=== PATIENT | male | born 1955 | race Caucasian/White ===

== ENCOUNTER 2016-10-06 18:21 | Emergency (ER) | payer MEDICARE, OTHER ==
--- NOTE | 2016-10-06 18:44 | ED ---
Throat Pain/Nasal Congestion - HPI Summary HPI Summary: Patient TIFFANY after choking on a piece of steak at a restaurant. His was at his side performing the Heimlich with no success, EMT arrived and performed the heimlich and successfully dislodged the piece of meat. Immediately, the patient felt better and was able to breath without difficulty. He is on o2 at home at baseline. Hx of parkinsons and episodes of dysphagia. This has happened a few times per his , but usually is successfully dislodged by heimlich at home by . He denies breathing difficulties at this point. Denies odynophagia or dysphagia currently. He is stable on arrival and VS are WNL. Patient currently takes cogentin, ativan, zoloft and prolixin. Patient is very frail. He is currently complaining of left sided rib pain after EMT performed heimlich maneuver for less than 1 minute. - History of Current Complaint Chief Complaint: EDForeignBodyEsophag Time Seen by Provider: 10/06/16 18:34 Hx Obtained From: Patient Onset/Duration: Sudden Onset Severity: Severe - Epiglottits Risk Factors Epiglottis Risk Factors: Negative - Allergies/Home Medications Allergies/Adverse Reactions: Allergies Allergy/AdvReac Type Severity Reaction Status Date / Time No Known Allergies Allergy Verified 12/18/12 11:28 PMH/Surg Hx/FS Hx/Imm Hx Previously Healthy: No - parkinsons Endocrine/Hematology History: Reports: Hx Diabetes - prediabetic Cardiovascular History: Denies: Hx Pacemaker/ICD Sensory History: Denies: Hx Hearing Aid Psychiatric History: Denies: Hx Panic Disorder - Surgical History Surgery Procedure, Year, and Place: 2 hernia operations, gastro surgery - Immunization History Hx Pertussis Vaccination: No Immunizations Up to Date: Unable to Obtain/Confirm Infectious Disease History: No Infectious Disease History: Denies: Traveled Outside the [place] in Last 30 Days - Social History Occupation: Unemployed Lives: With Family Alcohol Use: Rare Hx Substance Use: No Substance Use Type: Reports: None Hx Tobacco Use: No Review of Systems Constitutional: Negative Eyes: Negative ENT: Other - no FB present/ airway clear Cardiovascular: Negative Respiratory: Negative Genitourinary: Negative Positive: no symptoms reported, see HPI Skin: Negative Neurological: Negative All Other Systems Reviewed And Are Negative: Yes Physical Exam Triage Information Reviewed: Yes Vital Signs On Initial Exam: Initial Vitals Temp Pulse Resp BP Pulse Ox 98.4 F 91 18 138/89 96 10/06/16 18:23 10/06/16 18:23 10/06/16 18:23 10/06/16 18:23 10/06/16 18:23 Vital Signs Reviewed: Yes Appearance: Positive: Well-Appearing, Well-Nourished Skin: Positive: Warm, Skin Color Reflects Adequate Perfusion Head/Face: Positive: Normal Head/Face Inspection Eyes: Positive: EOMI, SHARON, Conjunctiva Clear ENT: Positive: Pharynx normal, Other - no tonsillar swelling, airway patent Neck: Positive: Supple, No Lymphadenopathy Respiratory/Lung Sounds: Positive: Clear to Auscultation, Breath Sounds Present Cardiovascular: Positive: Normal, RRR, Pulses are Symmetrical in both Upper and Lower Extremities Musculoskeletal: Positive: Normal, Strength/ROM Intact Neurological: Positive: Speech Normal Psychiatric: Positive: Normal AVPU Assessment: Alert - Maryse Coma Scale Best Eye Response: 4 - Spontaneous Best Motor Response: 6 - Obeys Commands Best Verbal Response: 5 - Oriented Diagnostics - Vital Signs Vital Signs Temp Pulse Resp BP Pulse Ox 10/06/16 18:33 98.4 F 88 20 127/91 98 10/06/16 18:23 98.4 F 91 18 138/89 96 - Laboratory Lab Statement: Any lab studies that have been ordered have been reviewed, and results considered in the medical decision making process. EENT Course/Dx - Course Course Of Treatment: Patient evaluated for FB in pharynx. S/p successful dislodgement of FB (steak) from EMT prior to arrival. patient is stable on arrival and is c/o left sided rib pain. Denies SOB or mid-chest pain. PMHx includes parkinson's and has had episodes of dysphagia in the past which have all been treated at home by his with the wilfredo. Xrays ordered. Oral challenge successful with water and applesauce. Xrays showed no acute findings or rib fracture or other. - Differential Diagnoses Differential Diagnoses: Foreign Body, Other - parkinson's, throat pain; rib pain - Diagnoses Provider Diagnoses: Foreign body ingestion Discharge - Discharge Plan Condition: Stable Disposition: HOME Patient Education Materials: Esophageal Foreign Body (ED) Referrals: Derrick Busch MD [Primary Care Provider] - Additional Instructions: Follow up with PCP If you develop any symptoms such that you feel you are having difficulty swallowing - stop and eat something softer You have rib contusions which will improve in a few days
--- NOTE | 2016-10-06 19:33 | RAD ---
HISTORY: Rib pain status post time of liver COMPARISONS: Chest x-ray dated August 19, 2014 VIEWS: 5, Frontal view of the chest with frontal and oblique views of the left hemithorax FINDINGS: There is no displaced rib fracture or pneumothorax. The visualized lungs are clear. IMPRESSION: NO DISPLACED RIB FRACTURE OR PNEUMOTHORAX.
[2016-10-06 20:49] VITALS: BP 129/71
== END 2016-10-06 20:15 | disposition home or self-care (01) ==
LOC: ED 18:21
DX: R56.9 Unspecified convulsions (principal)
CPT/HCPCS: 96360; 99282

== ENCOUNTER 2018-08-31 14:10 | Inpatient (IN) | payer MEDICARE, OTHER ==
--- NOTE | 2018-08-31 16:43 | ED ---
GI/ HPI - HPI Summary HPI Summary: This pt is a 62 y/o male, accompanied by and [id number], presenting to [facility] for abd pain x5 days, decreased stool, worsening over the past 2 days. Pt states his abd pain is described as pressure and cramping. Additionally has back pain. He states he has been belching and has nausea. Pt reports he is not passing gas. He notes he has been taking shallow breaths. [id number] reports for the past two days pt has been producing liquid, mostly blood and dark. Pt last passed liquid during his bowel movement [employer]. Per [id number], pt leaks a lot and it is usually clear liquid and sometimes brown. Pt denies fever, chest pain, SOB, cough. Patient has tried milk of magnesia, Miralax, prune juice with no effect. Patient has not tried suppositories. Pt states doesn't feel can take deep breath second to pressure from abdomen He has hx of constipation but reports nothing this serious. Pt denies hx of appendectomy. He takes Levodopa and carbidopa for Parkinson's and has already had his dose of levodopa and carbidopa today. Patient also takes Prolixin, but notes only once in a while. Patient is followed by Dr. Horton, neurologist. Pt's medications reviewed this visit. - History of Current Complaint Chief Complaint: EDAbdPain Time Seen by Provider: 08/31/18 16:22 Stated Complaint: CONSTIPATED CRAMPS PER PT Hx Obtained From: Patient, Family/Test Center Administrator - and [id number] Onset/Duration: Started Days Ago, Still Present Timing: Lasting Days Current Severity: Moderate Pain Intensity: 7 Location of Pain: Diffuse Pain Characteristics: Cramping, Pressure Associated Signs and Symptoms: Positive: Back Pain, Nausea, Constipation, Abdominal Pain. Negative: Vomiting, Fever, Cough, Chest Pain, Other: - POSITIVE : belching. NEGATIVE: SOB Aggravating Factor(s): Nothing Alleviating Factor(s): Nothing - Allergy/Home Medications Allergies/Adverse Reactions: Allergies Allergy/AdvReac Type Severity Reaction Status Date / Time No Known Allergies Allergy Verified 08/31/18 14:30 Home Medications: Home Medications Amantadine CAP* [Symmetrel CAP*] 100 mg PO DAILY 08/31/18 [History Confirmed ] Carbidopa/Levodop 25/100 MG(*) [Sinemet 25/100 TAB(*)] 0.5 tab PO TID 08/31/18 [ History Confirmed 09/01/18] QUEtiapine TAB* [Seroquel 25 MG TAB*] 25 mg PO Q2HR PRN 08/31/18 [History Confirmed 09/01/18] Sertraline* [Zoloft*] 150 mg PO DAILY 08/31/18 [History Confirmed 09/01/18] metFORMIN* [Glucophage 500 MG TAB *] 250 mg PO QPM 08/31/18 [History Confirmed 09/01/18] fluPHENAZine HCL TAB* [Prolixin TAB*] 10 mg PO DAILY 09/01/18 [History Confirmed 09/01/18] PMH/Surg Hx/FS Hx/Imm Hx Previously Healthy: Yes Endocrine/Hematology History: Reports: Hx Diabetes - prediabetic Cardiovascular History: Denies: Hx Pacemaker/ICD Sensory History: Denies: Hx Hearing Aid Neurological History: Reports: Other Neuro Impairments/Disorders - Parkinson's, Tardive dyskinesia Psychiatric History: Reports: Hx Schizophrenia Denies: Hx Panic Disorder - Surgical History Surgical History: Yes Surgery Procedure, Year, and Place: 2 hernia operations, gastro surgery (lower esophageal sphincter) Infectious Disease History: No Infectious Disease History: Denies: Traveled Outside the [place] in Last 30 Days - Family History Known Family History: Positive: Diabetes - father, Non-Contributory Family History: Mother with throat CA. - Social History Occupation: Retired Lives: With Family Alcohol Use: Rare Hx Substance Use: No Substance Use Type: Reports: None Hx Tobacco Use: No Smoking Status (MU): Never Smoked Tobacco Review of Systems Negative: Fever Negative: Chest Pain Negative: Cough Gastrointestinal: Other - POSITIVE: constipation, belching Positive: Abdominal Pain, Nausea All Other Systems Reviewed And Are Negative: Yes Physical Exam - Summary Physical Exam Summary: Vital Signs Reviewed: Yes A+Ox3, resting tremor, sotic Eyes: Conjunctiva Clear, SHARON. EOM intact and full ENT: Hearing grossly normal TM x 2 clear, mmoist, uvula midline, no exudate, no erythema Neck: Positive: Supple Respiratory: Positive: No respiratory distress, No accessory muscle use + CTA throughout no w/r Cardiovascular: RRR nl s1, s2 no m/r CBT <2 sec abd distended, tympanic, mild tender decreased BS n oguarding Musculoskeletal Exam: VENTURA x 4 without difficulty Strength Intact, ROM Intact Neurological: Positive: Alert, + sensation throughout, resting tremor Psychological: Positive: Normal Response To Family Skin: Positive: no rash, no ecchymosis Triage Information Reviewed: Yes Vital Signs On Initial Exam: Initial Vitals Temp Pulse Resp BP Pulse Ox 97.8 F 91 20 168/115 94 08/31/18 14:27 08/31/18 14:27 08/31/18 14:27 08/31/18 14:27 08/31/18 14:27 Diagnostics - Vital Signs Vital Signs Temp Pulse Resp BP Pulse Ox 08/31/18 14:27 97.8 F 91 20 168/115 94 - Laboratory Result Diagrams: 08/31/18 17:04 08/31/18 17:04 Lab Statement: Any lab studies that have been ordered have been reviewed, and results considered in the medical decision making process. - Radiology Chest XR Radiology Interpretation Completed By: Radiologist Summary of Radiographic Findings: IMPRESSION: Gas distension of the bowel with associated elevation of the hemidiaphragms and mild bibasilar atelectasis. Dr. Fuller has reviewed this report. Abd XR Radiology Interpretation Completed By: Radiologist Summary of Radiographic Findings: IMPRESSION: #. Severely distended colon without visualized rectal distension with stool. Consider atypical sigmoid volvulus or colonic pseudoobstruction. Correlate with clinical assessment and consider CT for further evaluation. #. Negative for free air. Dr. Fuller has reviewed this report. Re-Evaluation - Re-Evaluation First Eval Re-Evaluation Time: 17:57 Comment: CT is still pending. pt drank contrast. concern for volvulus on my read- pending official xr. will give morphine - if doesn't improve BP will give labetolol Second Eval Re-Evaluation Time: 18:48 Comment: Morphine helped with pt's back pain. Pt reports back pain has resolved. Pt and family were updated on XR results and plan. Will give pt Labetalol to help with BP. pending CT. will contact GI back after CT -aware of sign out GIGU Course/Dx - Course Course Of Treatment: pt wirh progressive abd bloating, discomfort and decreased stool x 5 days h.p parkinsons. pt with elevated BP - likely related to condition. pt non toxic appearing - abd distended and tympnic - not consistent with constipation. will check FAS, CT. lab, urine. IVF. close reassess. declined analgesia - Diagnoses Provider Diagnoses: Volvulus, HTN (hypertension) - Physician Notifications Discussed Care Of Patient With: Deacon Thompson Time Discussed With Above Provider: 18:16 Instructed by Provider To: Other - Discussed with Dr. Thompson, surgeon, who asked to get a formal reading. If volvulus then contact GI. [18:46] Spoke with Dr. Cobb, GI, who asked for phone call when CT results. Discharge - Sign-Out/Discharge Documenting (check all that apply): Sign-Out Patient Signing out patient TO: Melody Milton - CT abdomen/pelvis Patient Received Moderate/Deep Sedation with Procedure: No - Discharge Plan Condition: Fair Disposition: ADMITTED TO [facility] - Billing Disposition and Condition Condition: FAIR Disposition: Admitted to [facility] - Attestation Statements Document Initiated by Scribe: Yes Documenting Scribe: Stephanie Gonzalez Provider For Whom Scribe is Documenting (Include Credential): Yola Fuller MD Scribe Attestation: IStephanie, scribed for Yola Fuller MD on 09/01/18 at 0451. Scribe Documentation Reviewed: Yes Provider Attestation: The documentation as recorded by the Stephanie shaw accurately reflects the service I personally performed and the decisions made by me, Yola Fuller MD Status of Scribe Document: Viewed
[2018-08-31] MEDS ORDERED: Ondansetron INJ* 2 MG/ML VIAL IV ONE (16:56)
[2018-08-31 17:13] LABS: ABS Lymphocytes 0.4 10^3/ul (1.0-4.8); ABS Monocytes 0.3 10^3/ul (0-0.8); ABS Neutrophils 4.9 10^3/ul (1.5-7.7); Hematocrit 45 % (42-52); Hemoglobin 15.1 g/dL (14.0-18.0); Lymphocyte % 6.6 %; Mean Corpuscular HGB Conc 34 g/dL (31-36); Mean Corpuscular Hemoglobin 32 pg (27-31); Mean Corpuscular Volume 94 fL (80-94); Mean Platelet Volume 6.6 fL (7.4-10.4); Platelet Count 211 10^3/uL (150-450); Red Blood Count 4.74 10^6 /uL (4.18-5.48); Red Cell Distribution Width 14 % (10-15); White Blood Count 5.6 10^3/uL (3.5-10.8)
[2018-08-31 17:30] LABS: Albumin 4.6 g/dL (3.2-5.2); Albumin/Globulin Ratio 1.8 (1-3); BUN/Creatinine Ratio 35.6 (8-20); Calcium 9.6 mg/dL (8.6-10.3); EGFR African American 107.6 (>60); EGFR Non-African American 88.9 (>60); Globulin 2.5 g/dL (2-4); Magnesium 2.6 mg/dL (1.9-2.7); Potassium 3.8 mmol/L (3.5-5.0); Total Bilirubin 1.3 mg/dL (0.2-1.0); Total Protein 7.1 g/dL (6.4-8.9)
[2018-08-31] MEDS ORDERED: Morphine 4 MG/ML VIAL (1 ml) 4 MG/ML VIAL IV ONE ×2 (18:06→19:49)
[2018-08-31] MEDS ORDERED: NS 0.9% 1000 ML** 1,000 ML IV SCH ×2 (18:15)
[2018-08-31] MEDS ORDERED: Iodixanol* (CONTRAST) 320 MG/ML 100 ML SDV IV ONE (18:32)
[2018-08-31] MEDS ORDERED: Labetalol IV* 5 MG/ML 20 ML VIAL IV PUSH ONE ×2 (18:54→20:32)
--- NOTE | 2018-08-31 19:07 | ED ---
Progress - Progress Note Progress Note: Patient is signed out to [place] [address]/31/[address] Abd/Pel and GI consult. CT ABD/PEL IMPRESSION: 1. Findings suspicious for sigmoid volvulus with severe gaseous distention of the colon and scattered air fluid levels. No pneumatosis, portal venous air, or evidence of perforation. 2. Elevated bilateral hemidiaphragms secondary to distended bowel. Probable bilateral lower lobe atelectasis, but superimposed air space disease in the right lower lobe is difficult to exclude. 3. Surgical change in left upper quadrant. 4. Chronic left pars interarticularis defect. No significant subluxation. 5. Other non-emergent findings as above. THIS REPORT WAS REVIEWED BY DR. LUNA. Elisabeth Malia Cobb attempted to suction air. She recommends NPO, repeat x-ray and admission. Dr. Niño accepts patient for admission. - EKG/XRAY/CT CT: see above Re-Evaluation - Re-Evaluation First Eval Re-Evaluation Time: 17:57 Comment: CT is still pending. Second Eval Re-Evaluation Time: 18:48 Comment: Morphine helped with pt's back pain. Pt reports back pain has resolved. Pt and family were updated on XR results and plan. Will give pt Labetalol to help with BP. Course/Dx - Course Course Of Treatment: 2035 - Patient's case discussed with Dr. Cobb, Dr. Cobb to come to ED to evaluate. Patient is signed out to Dr. [place] [address]008/31/[address] Abd/Pel and GI consult. CT ABD/PEL IMPRESSION: 1. Findings suspicious for sigmoid volvulus with severe gaseous distention of. the colon and scattered air fluid levels. No pneumatosis , portal venous air, or. evidence of perforation. 2. Elevated bilateral hemidiaphragms secondary to distended bowel. Probable. bilateral lower lobe atelectasis, but superimposed air space disease in the. right lower lobe is difficult to exclude. 3. Surgical change in left upper quadrant. 4. Chronic left pars interarticularis defect. No significant subluxation. 5. Other non- emergent findings as above. Elisabeth Malia Cobb attempted to suction air. She recommends repeat NPO, x-ray and admission. Dr. Niño accepts patient for admission. - Diagnoses Provider Diagnoses: Volvulus, HTN (hypertension) - Provider Notifications Discussed Care Of Patient With: Destinee Cobb Time Discussed With Above Provider: 20:36 Instructed by Provider To: Other - 2029 - vrad communicates results of CT ABD/ PEL. 2035 - Patient's case discussed with Dr. Cobb, Dr. Cobb to come to ED to evaluate. 2226 - Dr. Cobb in ED to evaluate. 2355 - Job Ponce attempted to suction air. She recommends repeat NPO, x-ray and admission. Dr. Chuy Niño accepts patient for admission. Discharge - Sign-Out/Discharge Documenting (check all that apply): Patient Departure - admit Patient Received Moderate/Deep Sedation with Procedure: No - Discharge Plan Condition: Fair Disposition: ADMITTED TO [facility] - Billing Disposition and Condition Condition: FAIR Disposition: Admitted to [facility] - Attestation Statements Document Initiated by Leathaibe: Yes Documenting Scribe: SISSY SALES Provider For Whom Shailae is Documenting (Include Credential): YIN LUNA MD Scribe Attestation: ISISSY, scribed for YIN LUNA MD on 09/01/18 at 2013. Scribe Documentation Reviewed: Yes Provider Attestation: The documentation as recorded by the SISSY shaw accurately reflects the service I personally performed and the decisions made by me, YIN LUNA MD Status of Scribe Document: Viewed
[2018-08-31] MEDS ORDERED: fentaNYL* 50 MCG/ML 2 ML VIAL (100 MCG VIAL) IV SLOW PU ONE (20:23)
[2018-08-31 21:46] LABS: Urine Appearance Clear; Urine Bilirubin Negative (Negative); Urine Blood Negative (Negative); Urine Color Amber; Urine Glucose Negative (Negative); Urine Ketones Negative (Negative); Urine Nitrite Negative (Negative); Urine Protein Negative (Negative); Urine Specific Gravity > 1.060 (1.010-1.030); Urine Urobilinogen Negative (Negative)
[2018-08-31] MEDS ORDERED: Midazolam* 1 MG/ML 10 ML VIAL (10 MG) ONE (22:55)
[2018-09-01] MEDS ORDERED: Glycerin ADULT SUPP PR ONE (00:23)
--- NOTE | 2018-09-01 00:58 | PRO ---
PROCEDURE REPORT: DATE OF PROCEDURE: 08/31/18 PROCEDURE: Flex sigmoidoscopy. REQUESTING PROVIDER: ER. INDICATION: 62-year-old gentleman with constipation and Parkinson's disease, who is admitted with acute abdominal distention and obstipation. X-ray and CT shows severely dilated colon with a collapsed rectum. Findings suggestive of a sigmoid volvulus. MEDICATIONS GIVEN: 1. Versed. 2. Fentanyl. DESCRIPTION OF PROCEDURE: Full disclosure of risks was reviewed with the patient as detailed on the consent form. The patient was placed in a left lateral decubitus position and monitored with continuous pulse oximetry, capnography, interval blood pressure monitoring, and direct observation. After anorectal examination was performed, the pediatric colonoscope was inserted into the rectum and slowly advanced forward. The scope was advanced to 45 cm. Colon was unprepped. Suction was performed as the scope was withdrawn. Findings and interventions are described below. FINDINGS: Anorectal exam was unremarkable. Scope was inserted into the rectum. Very minimal CO2 insufflation was used as the scope was advanced forward. The rectum was relatively decompressed. Scope was slowly advanced using water insufflation technique to approximately 30 cm at which point the volvulus was appreciated. Volvulus was approximately 5-10 cm in length. The scope was able to advance through the volvulus to the dilated colon proximally. There was a large amount of liquid and semi-solid stool in this area. Scope was able to be advanced further to likely the descending colon, which was also quite dilated. No evidence of colonic ischemia. Suctioning performed to decompress this area. Suction was performed as the scope was then slowly withdrawn back to the rectum. The scope was advanced through the volvulus several additional times in order to suction as much air as possible in the proximal segment of colon. The scope was then withdrawn from the patient. Attempts were made to place a rectal tube (under endoscopic visualization) proximal to volvulus. Unfortunately, the tube fell out soon after placement. The patient's abdomen felt noticeably less distended and firm post-procedure, although there was moderate persistent distention. No large expulsion of gas or stool noted after the procedure. The patient tolerated the procedure well and was recovered in the ER. IMPRESSION: 1. Flexible sigmoidoscopy to descending colon for decompression of sigmoid volvulus. Air and liquid stool were suctioned and minimal CO2 insufflation was used. No evidence of colonic ischemia. Abdomen felt less distended post- procedure. RECOMMENDATIONS: 1. NPO. 2. Recommend bisacodyl or glycerine suppository to see if this helps stimulate any colonic motility. If the volvulus reduction was unsuccessful (or recurs in the acute setting), then I would recommend surgical consultation. 3. Please obtain abdominal x-ray post-procedure. Thank you very much for this consult. GI will continue to follow. I discussed the case in detail before and after the procedure with the patient's . [id number]/CPS #: [id number] OTIS
--- NOTE | 2018-09-01 00:59 | HP ---
History of Present Illness - History of Present Illness Reason for Visit: Constipation. History of Present Illness: This pt is a 62 y/o male with past medical history long standing Schizophrenia, Tardive dyskinesia, Parkinsons, pre-diabetes, accompanied by and sister-in- law, for constipation and abd pain x5 days, worsening over the past 2 days. During my evaluation the patient was very drowsy post sigmoidoscopy performed by Dr. Cobb, so history was obtained by reviewing the ER chart and speaking to family at beside. Sigmoidoscopy was partial success at reversing his volvulus along with total of over 1L of liquid stool suctioned off. ER chart doumented "Pt states his abd pain is described as pressure and cramping. Additionally has back pain. He states he has been belching and has nausea. Pt reports he is not passing gas. He notes he has been taking shallow breaths. [id number] reports for the past two days pt has been producing liquid, mostly blood and dark. Pt last passed liquid during his bowel movement [employer]. Per [id number], pt leaks a lot and it is usually clear liquid and sometimes brown. Pt denies fever, chest pain, SOB, cough. Patient has tried milk of magnesia, Miralax, prune juice with no effect. Patient has not tried suppositories. He has hx of constipation but reports nothing this serious." Past Medical History Long standing Schizophrenia Tardive dyskinesia Parkinson's likely complication of schiziophrenia Diabetes - prediabetic Past Surgical History Groin hernia operation in his high school. Lower esophageal sphincter surgery 20 years ago. Family History Father Mother with throat CA. Social History Alcohol Use: Rare Hx Substance Use: No Substance Use Type: Reports: None Hx Tobacco Use: No Smoking Status (MU): Never Smoked Tobacco Allergies Allergy/AdvReac Type Severity Reaction Status Date / Time No Known Allergies Allergy Verified 08/31/18 14:30 Home Medications Medication Instructions Recorded Confirmed Type Benztropine TAB* [Cogentin TAB*] 1 mg PO TID 12/18/12 08/31/18 History LORazepam TAB(*) [Ativan TAB(*)] 1 mg PO QID PRN 12/18/12 08/31/18 History Amantadine CAP* [Symmetrel CAP*] 100 mg PO BID 08/31/18 08/31/18 History Carbidopa/Levodop 25/100 MG(*) 0.5 tab PO 0600,1000,1400,1800 08/31/18 08/31/18 History [Sinemet 25/100 TAB(*)] QUEtiapine TAB* [Seroquel 25 MG 75 mg PO BEDTIME 08/31/18 08/31/18 History TAB*] Sertraline* [Zoloft*] 200 mg PO DAILY 08/31/18 08/31/18 History metFORMIN* [Glucophage 500 MG TAB 250 mg PO DAILY 08/31/18 08/31/18 History *] fluPHENAZine HCL TAB* [Prolixin 10 mg PO DAILY 09/01/18 09/01/18 History TAB*] Review of Systems - Measurements Intake and Output: Intake and Output Last 24 Hours 08/29/18 08/30/18 08/31/18 09/01/18 06:59 06:59 06:59 06:59 Weight 138 lb - Review of Systems General Comments: Unable to obtain from patient due to his sedated state. Objective Active Medications: Glycerin (Glycerin Adult Supp*) 1 supp [facility] ON[facility] Stop: 09/01/18 00:24 Sodium Chloride (Ns 0.9% 1000 Ml) 1,000 mls @ 150 mls/hr IV PER RATE RAYSHAWN Last Admin: 08/31/18 18:14 Dose: 150 mls/hr Vital Signs - 8 hr 08/31/18 08/31/18 08/31/18 17:03 17:05 17:33 Pulse Rate 78 71 Respiratory 25 Rate Blood Pressure 180/110 180/106 (mmHg) O2 Sat by Pulse 98 98 Oximetry 08/31/18 08/31/18 08/31/18 18:00 18:01 18:02 Pulse Rate 76 75 72 Respiratory 24 27 24 Rate Blood Pressure 197/115 183/109 (mmHg) O2 Sat by Pulse 97 97 97 Oximetry 08/31/18 08/31/18 08/31/18 18:03 18:13 18:15 Pulse Rate 71 71 Respiratory 24 18 23 Rate Blood Pressure 178/113 163/105 (mmHg) O2 Sat by Pulse 98 97 Oximetry 08/31/18 08/31/18 08/31/18 18:16 18:26 18:33 Pulse Rate 73 74 Respiratory 25 19 Rate Blood Pressure 178/102 162/108 168/106 (mmHg) O2 Sat by Pulse 97 97 Oximetry 08/31/18 08/31/18 08/31/18 18:57 19:00 19:03 Pulse Rate 75 73 74 Respiratory 19 19 23 Rate Blood Pressure 162/104 168/104 (mmHg) O2 Sat by Pulse 97 97 96 Oximetry 08/31/18 08/31/18 08/31/18 19:07 19:35 20:00 Pulse Rate 76 74 Respiratory 26 24 Rate Blood Pressure 140/96 143/88 (mmHg) O2 Sat by Pulse 93 93 Oximetry 08/31/18 08/31/18 08/31/18 20:04 20:09 20:33 Pulse Rate 75 75 Respiratory 24 14 24 Rate Blood Pressure 168/106 172/104 (mmHg) O2 Sat by Pulse 95 95 Oximetry 08/31/18 08/31/18 08/31/18 20:48 20:54 20:59 Pulse Rate 76 73 215 Respiratory 21 23 25 Rate Blood Pressure 147/94 137/97 153/93 (mmHg) O2 Sat by Pulse 91 89 90 Oximetry 08/31/18 08/31/18 08/31/18 21:01 21:03 21:07 Pulse Rate 77 75 73 Respiratory 26 22 19 Rate Blood Pressure 155/104 181/111 (mmHg) O2 Sat by Pulse 93 92 90 Oximetry 08/31/18 08/31/18 08/31/18 21:13 21:24 21:34 Pulse Rate 72 102 Respiratory 22 24 23 Rate Blood Pressure 157/101 162/99 129/92 (mmHg) O2 Sat by Pulse 89 90 Oximetry 08/31/18 08/31/18 08/31/18 21:38 21:43 21:48 Pulse Rate 75 75 75 Respiratory 27 21 20 Rate Blood Pressure 175/109 161/110 166/103 (mmHg) O2 Sat by Pulse 90 91 90 Oximetry 08/31/18 08/31/18 21:53 22:01 Pulse Rate 74 73 Respiratory 20 18 Rate Blood Pressure 167/107 (mmHg) O2 Sat by Pulse 90 90 Oximetry Oxygen Devices in Use Now: None Appearance: Sedated due to versed in the colonoscopy Eyes: - - Family didn't want any testing of eyes as he didn't sleep for few days so didn't want to wake him up. Neck: NL Appearance and Movements; NL JVP Respiratory: Clear to Auscultation Cardiovascular: NL Sounds; No Murmurs; No JVD, RRR Abdominal: - - Distended and tympanic to percussion, hypoactive bowel sounds, no real tenderness during my evaluation. Extremities: No Edema Neurological: - - Sedated due to procedure. Result Diagrams: 08/31/18 17:04 08/31/18 17:04 Diagnostic Imaging: Chest XR IMPRESSION: Gas distension of the bowel with associated elevation of the hemidiaphragms and mild bibasilar atelectasis. Abd XR IMPRESSION: Severely distended colon without visualized rectal distension with stool. Consider atypical sigmoid volvulus or colonic pseudoobstruction. Correlate with clinical assessment and consider CT for further evaluation. Negative for free air. CT ABD/PEL IMPRESSION: 1. Findings suspicious for sigmoid volvulus with severe gaseous distention of the colon and scattered air fluid levels. No pneumatosis, portal venous air, or evidence of perforation. 2. Elevated bilateral hemidiaphragms secondary to distended bowel. Probable bilateral lower lobe atelectasis, but superimposed air space disease in the right lower lobe is difficult to exclude. 3. Surgical change in left upper quadrant. 4. Chronic left pars interarticularis defect. No significant subluxation. 5. Other non-emergent findings as above. Assess/Plan/Problems-Billing Assessment: 62yoM w/schizophrenia, Parkinson's, here due to constipation from sigmoid volvulus. - Patient Problems (1) Sigmoid volvulus Current Visit: Yes Status: Acute Comment: S/P Sigmoidoscopy. GI and Surgeon made awake by ER. Spoke with GI suggested Glycerin and Bisacodyl. NPO for now. IVF. Repeat Abdominal X-ray in AM. (2) Schizophrenia Current Visit: Yes Status: Acute Code(s): F20.9 - SCHIZOPHRENIA, UNSPECIFIED SNOMED Code(s): 22862683 Comment: Restart home meds. (3) Parkinson disease Current Visit: Yes Status: Acute Code(s): G20 - PARKINSON'S DISEASE SNOMED Code(s): 73863327 Comment: Restart home meds. (4) Pre-diabetes Current Visit: Yes Status: Acute Code(s): R73.03 - PREDIABETES SNOMED Code (s): 468578695 Comment: Hold metformin for now. (5) DVT prophylaxis Comment: SCD
--- NOTE | 2018-09-01 01:06 | CONS ---
GASTROENTEROLOGY CONSULT REPORT: DATE OF CONSULT: 08/31/18 REQUESTING PROVIDER: ED REASON FOR CONSULT: Sigmoid volvulus. HISTORY OF PRESENT ILLNESS: Mr. Greene is a 62-year-old gentleman with a history of diabetes, Parkinson's, and schizophrenia, who is admitted with acute abdominal distention and obstipation. Mr. Greene and his provide history. Mr. Greene states that over the past 2 weeks he has had increasing abdominal distention. He says that his last bowel movement was 2 weeks ago, although his notes that he had a large bowel movement several days ago. After the large bowel movement, he stopped passing flatus and stool. Abdomen became quite distended and firm. The patient has a history of constipation and has a bowel movement anywhere from every few days to a week. The stool is often hard with some straining. In the ED, the patient underwent abdominal x-ray, which showed severely dilated colon concerning for atypical sigmoid volvulus versus [place]'s syndrome. Followup CT abdomen and pelvis demonstrated distended colon with sigmoid volvulus in the lower pelvis. PAST MEDICAL HISTORY: 1. Diabetes. 2. Schizophrenia. 3. Parkinson's disease. PAST SURGICAL HISTORY: Two hernia operations and a hiatal hernia surgery. MEDICATIONS: 1. Amantadine. 2. Carbidopa/levodopa. 3. Quetiapine. 4. Sertraline. 5. Metformin. FAMILY HISTORY: No known relevant GI history. SOCIAL HISTORY: Lives with his . Rare alcohol use. Nonsmoker. No drug use. REVIEW OF SYSTEMS: Parkinson's. Some shortness of breath. Abdominal discomfort. No bowel movement or gas. Review of systems otherwise negative. PHYSICAL EXAMINATION: Vital Signs: Afebrile, heart rate 91, blood pressure 168/115, 94% on room air. General: Elderly gentleman, significant resting tremor. Mildly engaged with history, although otherwise resting. Appears mildly uncomfortable. and family friend at bedside with multiple questions. HEENT: Mildly dry mucous membranes. Cardiovascular: Regular rate and rhythm. Pulmonary: Mildly decreased breath sounds. Otherwise clear lungs. Abdomen: Firm and distended abdomen. Tympany. No guarding or rebound tenderness. Extremities: No edema. DIAGNOSTIC STUDIES/LAB DATA: Labs reviewed, white count normal, hemoglobin normal. Sodium 128, BUN 31. Imaging: Abdominal x-ray with severely distended colon without visualized rectal distention. Consider sigmoid volvulus or colonic pseudoobstruction. CT abdomen and pelvis findings suspicious for sigmoid volvulus with severe gaseous distention of the colon and scattered air fluid levels. Elevated bilateral hemidiaphragm secondary to distended bowel also noted. IMPRESSION AND RECOMMENDATION: Mr. Greene is a 62-year-old gentleman with a history of schizophrenia and diabetes and Parkinson's, who is admitted with acute abdominal distention and obstipation secondary to sigmoid volvulus. The patient's abdomen is quite distended and imaging is suggestive of severely distended colon with probable sigmoid volvulus. Discussed with the patient and the patient's that it is reasonable to proceed with a flexible sigmoidoscopy to attempt to detorse the sigmoid volvulus. This is generally successful, although volvulus can recur frequently. In that case, surgery with resection of the volvulus is indicated. - N.p.o. - Will plan for flex sig unprepped at bedside for urgent decompression. - Additional recommendations to follow procedure. Thank you very much for this consult. [id number]/[facility] #: [id number] OTIS
[2018-09-01] MEDS ORDERED: NS 0.9% 1000 ML** 1,000 ML IV SCH (01:30)
[2018-09-01] MEDS ORDERED: Benztropine TAB* 1 MG PO PRN (01:44)
[2018-09-01 06:17] LABS: ABS Lymphocytes 0.9 10^3/ul (1.0-4.8); ABS Monocytes 0.6 10^3/ul (0-0.8); ABS Neutrophils 4.5 10^3/ul (1.5-7.7); Eosinophil % 0.2 %; Hematocrit 39 % (42-52); Hemoglobin 13.5 g/dL (14.0-18.0); Lymphocyte % 15.1 %; Mean Corpuscular HGB Conc 35 g/dL (31-36); Mean Corpuscular Hemoglobin 33 pg (27-31); Mean Corpuscular Volume 94 fL (80-94); Platelet Count 188 10^3/uL (150-450); Red Blood Count 4.11 10^6 /uL (4.18-5.48); Red Cell Distribution Width 14 % (10-15); White Blood Count 6.1 10^3/uL (3.5-10.8)
[2018-09-01 06:35] LABS: BUN/Creatinine Ratio 33.8 (8-20); Calcium 8.3 mg/dL (8.6-10.3); EGFR African American 118.5 (>60); Potassium 4.2 mmol/L (3.5-5.0)
[2018-09-01] MEDS ORDERED: Lactated Ringers 1000 ML Bag* 1,000 ML IV ONE (10:23)
[2018-09-01 10:33] LABS: Albumin 3.5 g/dL (3.2-5.2); Albumin/Globulin Ratio 1.8 (1-3); Indirect Bilirubin 0.8 mg/dL (0.3-1.0); Total Protein 5.5 g/dL (6.4-8.9)
[2018-09-01 10:46] LABS: Magnesium 2.3 mg/dL (1.9-2.7); Phosphorus 2.8 mg/dL (2.5-5.0)
[2018-09-01] MEDS: Sertraline* 100 MG TAB PO SCH (12:39)
[2018-09-01] MEDS: Amantadine CAP* 100 MG PO SCH (12:39)
[2018-09-01] MEDS: fluPHENAZine HCL TAB* 5 MG PO SCH (12:40)
[2018-09-01] MEDS: Bisacodyl SUPP* 10 MG SUPP PR SCH (12:45)
[2018-09-01] MEDS ORDERED: PEG 3000 GI LAVAGE* 1 GALLON PO ONE (12:49)
[2018-09-01] MEDS: Carbidopa/Levodop 25/100 MG TAB(*) PO SCH ×3 (12:51→21:05)
--- NOTE | 2018-09-01 12:51 | PN ---
Progress Note - Progress Note Date of Service: 09/01/18 Note: GASTROENTEROLOGY FOLLOW-UP NOTE IE/S: - Sigmoid volvulus. - Flex seg w/ decompression performed in ED last night. No ischemia. Attempt was made to place rectal tube proximal to volvulus, but the tube quickly fell out. Abdomen felt mild/mod less distended post-procedure. - Passing flatus w/ stool overnight and this morning. Several bowel movements. Last BM was large (mid-morning). - Complains of feeling abdomen is mildly sore with palpation. Otherwise, abdomen feels less distended. O: VS: Tm99.2, BP and HR ok GEN: Tired-appearing gentleman. Parkinson's resting tremor. CV: RRR PULM: Breathing comfortably ABD: Hypoactive BS. Softly distended. Mild tenderness. EXT: No edema Reviewed abdominal x-ray this AM personally and w/ radiology Dr Inman. Descending colon appears less dilated. Right colon measuring <9 cm at max diameter. A/P: 62yM w/ diabetes, parkinson's disease, and schizophrenia, who is admitted w/ sigmoid volvulus. Underwent flex sig w/ decompression overnight. De-torsion appears to have been successful as patient is no longer obstructed. Passing stool w/ flatus. Persistent distention noted on abdominal x-ray, although this was before most recent large bowel movement. Abdomen feels less distended. - Can trial clears as patient is no longer acutely obstructed clinically - Recommend ordering Golytely and encouraging patient to drink some of this laxative to attempt to clear out stool further in case volvulus recurs. - Repeat abdominal x-ray this morning or with clinical change. Low threshold to repeat CT if concern for recurrent volvulus. - Discussed case with Dr Baum and Dr Vail. There is a high risk (~60%) of recurrence of sigmoid volvulus after one episode managed non-operatively (with flex sig decompression). Endoscopy can allow for urgent decompression/reduction of volvulus. However, surgery is definitive management to prevent recurrent volvulus. Will monitor patient clinically. Strongly recommend consideration of surgical intervention if recurrent volvulus develops. Destinee Cobb MD Gastroenterology
--- NOTE | 2018-09-01 13:51 | CONS ---
CONSULTATION REPORT: DATE OF CONSULT: 09/01/18 REQUESTING PHYSICIAN: Dr. Lizet Vail. REASON FOR CONSULT: Sigmoid volvulus. HISTORY OF PRESENT ILLNESS: Mr. Greene is a 62-year-old gentleman with a longstanding history of schizophrenia, tardive dyskinesia, and Parkinson's disease, who presented to the emergency room yesterday with complaints of constipation and abdominal pain for 5 days that worsened over the past several days. I had initially evaluated him in the emergency room yesterday and I saw him again this morning. Yesterday, the patient was having complaints of significant abdominal distention and discomfort. He was found on imaging, which included an abdominal x-ray and abdominal CT scan, to likely have sigmoid volvulus. He underwent a flexible sigmoidoscopy with Dr. Cobb from and per her procedure note, she was not certain if there had been completely successful detorsion. hHowever, there was gas and stool that was released after her procedure. She was also unable to place a rectal tube. This morning , the patient says that he feels much better. He has had 4 bowel movements since the flexible sigmoidoscopy. He is still distended. PAST MEDICAL HISTORY: Schizophrenia, tardive dyskinesia, Parkinson's. PAST SURGICAL HISTORY: 1. Inguinal hernia repair. 2. Lower esophageal sphincter surgery approximately 20 years ago. MEDICATIONS: 1. Benztropine. 2. Lorazepam. 3. Amantadine. 4. Carbidopa/levodopa. 5. Quetiapine. 6. Sertraline. 7. Metformin. 8. Fluphenazine. ALLERGIES: No known drug allergies. FAMILY HISTORY: Mother with throat cancer. SOCIAL HISTORY: The patient lives with his . He is a nonsmoker. REVIEW OF SYSTEMS: Negative except for as noted in HPI. PHYSICAL EXAM: Vital Signs: Temperature is 99.2, heart rate is 65, respiratory rate is 16, O2 sat is 95% O2 on room air, blood pressure is 138/84. General: He is an elderly man, lying comfortably in bed, in no apparent distress. HEENT is normocephalic, atraumatic. Cardiovascular is regular rate and rhythm. Respiratory is clear to auscultation bilaterally. Abdomen is distended, but softer than yesterday's examination. There is no significant tenderness in the 4 quadrants with light palpation. Extremities showed no edema. DIAGNOSTIC STUDIES/LAB DATA: White blood cell count is 6.1, hemoglobin 13.5, hematocrit 39, platelet count 188. Sodium is 128, potassium is 4.2, chloride is 96, CO2 is 28, BUN is 27, creatinine is 0.8, glucose is 98, calcium is 8.3. Total bilirubin is 1, direct bilirubin is 0.2, AST is 40, ALT is 51, alkaline phosphatase is 62. Imaging: CT abdomen and pelvis from 08/31/18 shows findings suspicious for sigmoid volvulus with severe gaseous distention of the colon and scattered air- fluid levels. No pneumatosis, portal venous air, or evidence of perforation. Elevated bilateral hemidiaphragm secondary to distended bowel, probable bilateral lower lobe atelectasis, surgical change in the left upper quadrant, chronic left pars interarticularis defect. No significant subluxation. Abdominal x-ray from 09/01/18 shows question of slight improvement in colonic distention when compared to 08/31/18. ASSESSMENT AND PLAN: Mr. Greene is a 62-year-old gentleman with a history of schizophrenia and Parkinson's disease, who presented to the emergency room with constipation, abdominal distention and findings of sigmoid volvulus. He underwent flexible sigmoidoscopy with Dr. Cobb and it appears that while there may have been some benefit from the sigmoidoscopy, he may have not completely untorsed. Currently, however, he is clinically less distended, more comfortable and had been passing flatus and bowel movements. I have discussed the case with Dr. Vail as well as Dr. Cobb. She plans to initiate him on a clear liquid diet and give him laxatives. We have discussed the benefit of repeating a flexible sigmoidoscopy if the patient does not continue to clinically improve. The surgical option for acute sigmoid volvulus would be a more urgent exploratory laparotomy with sigmoidectomy and end colostomy; however, at this time he has no evidence of ischemia and surgery is not indicated at this moment. If we continues to decompress, then he could potentially undergo an elective sigmoidectomy that could be done laparoscopically with primary anastomosis, which would certainly be preferable. I have discussed this with the patient and the primary team. Surgery will continue to follow. [id number]/[facility] #: [id number] [facility]
[2018-09-01] MEDS ORDERED: IVPREMIX IV ONE (21:00)
[2018-09-01] MEDS ORDERED: KCL 10 MEQ/50 ML IV ONE (21:00)
[2018-09-01] MEDS ORDERED: KCL 20 MEQ/100 ML IVPREMIX* 20 MEQ/100 ML BAG IV ONE (21:00)
[2018-09-02 05:42] LABS: ABS Eosinophils 0.1 10^3/ul (0-0.6); ABS Lymphocytes 1.4 10^3/ul (1.0-4.8); ABS Monocytes 0.4 10^3/ul (0-0.8); Eosinophil % 2.8 %; Hematocrit 38 % (42-52); Hemoglobin 13.4 g/dL (14.0-18.0); Lymphocyte % 35.3 %; Mean Corpuscular HGB Conc 35 g/dL (31-36); Mean Corpuscular Hemoglobin 33 pg (27-31); Mean Corpuscular Volume 94 fL (80-94); Mean Platelet Volume 6.9 fL (7.4-10.4); Nucleated Red Blood Cells % 0.1; Platelet Count 173 10^3/uL (150-450); Red Blood Count 4.09 10^6 /uL (4.18-5.48); Red Cell Distribution Width 14 % (10-15); White Blood Count 3.9 10^3/uL (3.5-10.8)
[2018-09-02 06:02] LABS: Albumin 3.4 g/dL (3.2-5.2); Albumin/Globulin Ratio 1.6 (1-3); BUN/Creatinine Ratio 20.8 (8-20); Calcium 8.3 mg/dL (8.6-10.3); EGFR African American 123.9 (>60); EGFR Non-African American 102.4 (>60); Globulin 2.1 g/dL (2-4); Indirect Bilirubin 0.9 mg/dL (0.3-1.0); Potassium 3.7 mmol/L (3.5-5.0); Total Bilirubin 1.1 mg/dL (0.2-1.0); Total Protein 5.5 g/dL (6.4-8.9)
[2018-09-02] MEDS: Sertraline* 100 MG TAB PO SCH (09:13)
[2018-09-02] MEDS: fluPHENAZine HCL TAB* 5 MG PO SCH (09:13)
[2018-09-02] MEDS: Amantadine CAP* 100 MG PO SCH (09:13)
[2018-09-02] MEDS: Carbidopa/Levodop 25/100 MG TAB(*) PO SCH ×3 (09:14→22:08)
--- NOTE | 2018-09-02 09:33 | PN ---
Subjective Date of Service: 09/02/18 Objective Active Medications: Amantadine HCl (Symmetrel Cap*) 100 mg PO DAILY RAYSHAWN Benztropine Mesylate (Cogentin Tab*) 1 mg PO QID PRN Bisacodyl (Dulcolax Supp*) 10 mg PA DAILY RAYSHAWN Carbidopa/Levodopa (Sinemet 25/100 Tab(*)) 0.5 tab PO TID RAYSHAWN Fluphenazine HCl (Prolixin Tab*) 10 mg PO DAILY RAYSHAWN Sertraline HCl (Zoloft*) 150 mg PO DAILY RAYSHAWN Vital Signs: Temp Pulse Resp BP Pulse Ox 97.3 F 70 16 149/90 100 09/02/18 07:26 09/02/18 07:26 09/02/18 07:26 09/02/18 07:26 09/02/18 07:26 Oxygen Devices in Use Now: None Nutrition: Taking PO's Result Diagrams: 09/02/18 04:56 09/02/18 04:56 Diagnostic Imaging: . Assess/Plan/Problems-Billing Assessment: Mr. Greene is a 62 yo male w/schizophrenia and Parkinson's who was admitted on 09/01/18 constipation due to sigmoid volvulus. - Patient Problems (1) Sigmoid volvulus Comment: - Passing stool and gas. - S/P Sigmoidoscopy, repeat abd xray shows less distention. - Appreciate GI and Surgery consultations. GI recommended go-lytely to clear out stool in the event that volvulus returns. Dr Baum notes that patient - Continue clear liquid diet. IVF. - Flexiseal in situ. (2) Parkinson disease Comment: - Continue carbidopa-levodopa, benztropine, and amantadine. (3) Pre-diabetes Comment: - Hold metformin. (4) Schizophrenia Comment: - Continue prolixin. (5) Depression Comment: - Continue sertraline. (6) DVT prophylaxis Comment: - SCDs (7) Full code status Comment:
[2018-09-02] MEDS: Bisacodyl SUPP* 10 MG SUPP PR SCH (09:54)
--- NOTE | 2018-09-02 10:21 | PN ---
Subjective - Subjective Reason for Note: Progress Note History: He is feeling much more comfortable, his abdomen is less distended and is no longer painful. He is tolerating the rectal decompression tube. He has managed to drink a liquid diet and has no nausea or vomiting. He denies fever/ sweats. He is not coughing or bringing up sputum. He has no chest pain/pressure or palpitaitons. He has his usual marked tremor. Active Problems: Active Problems Sigmoid volvulus (Acute) - Passing stool and gas. - S/P Sigmoidoscopy, repeat abd xray shows less distention. - Appreciate GI and Surgery consultations. GI recommended go- lytely to clear out stool in the event that volvulus returns. Dr Baum notes that patient - Continue clear liquid diet. IVF. - Flexiseal in situ. DVT prophylaxis (Chronic) Z29.9 - SCDs Depression (Chronic) F32.9 - Continue sertraline. Full code status (Chronic) Z78.9 Parkinson disease (Chronic) G20 - Continue carbidopa-levodopa, benztropine, and amantadine. Pre-diabetes (Chronic) R73.03 - Hold metformin. Schizophrenia (Chronic) F20.9 - Continue prolixin. Tardive dyskinesia (Chronic) G24.01 Current Medications: Current Medications Amantadine HCl (Symmetrel Cap*) 100 mg PO DAILY [facility] Last Admin: 09/02/18 09:13 Dose: 100 mg Benztropine Mesylate (Cogentin Tab*) 1 mg PO QID PRN PRN Reason: AGITATION Carbidopa/Levodopa (Sinemet 25/100 Tab(*)) 0.5 tab PO TID [facility] Last Admin: 09/02/18 09:14 Dose: 0.5 tab Fluphenazine HCl (Prolixin Tab*) 10 mg PO DAILY [facility] Last Admin: 09/02/18 09:13 Dose: 10 mg Sertraline HCl (Zoloft*) 150 mg PO DAILY [facility] Last Admin: 09/02/18 09:13 Dose: 150 mg Home Medications: Home Medications Medication Instructions Recorded Confirmed Type Benztropine TAB* [Cogentin TAB*] 1 mg PO QID PRN 12/18/12 09/01/18 History LORazepam TAB(*) [Ativan TAB(*)] 1 mg PO QID PRN 12/18/12 09/01/18 History Amantadine CAP* [Symmetrel CAP*] 100 mg PO DAILY 08/31/18 09/01/18 History Carbidopa/Levodop 25/100 MG(*) 0.5 tab PO TID 08/31/18 09/01/18 History [Sinemet 25/100 TAB(*)] QUEtiapine TAB* [Seroquel 25 MG 25 mg PO Q2HR PRN 08/31/18 09/01/18 History TAB*] Sertraline* [Zoloft*] 150 mg PO DAILY 08/31/18 09/01/18 History metFORMIN* [Glucophage 500 MG TAB 250 mg PO QPM 08/31/18 09/01/18 History *] fluPHENAZine HCL TAB* [Prolixin 10 mg PO DAILY 09/01/18 09/01/18 History TAB*] Allergies: Allergies Allergy/AdvReac Type Severity Reaction Status Date / Time No Known Allergies Allergy Verified 08/31/18 14:30 Objective - Vital Signs Vital Signs: Vital Signs 09/01/18 09/01/18 09/01/18 11:23 15:23 19:40 Temperature 99.2 F 97.7 F 98 F Pulse Rate 65 72 70 Respiratory 16 20 16 Rate Blood Pressure 138/84 125/81 126/78 (mmHg) O2 Sat by Pulse 95 98 99 Oximetry 09/01/18 09/01/18 09/02/18 19:45 23:22 03:39 Temperature 98.0 F 98.2 F Pulse Rate 65 57 Respiratory 16 16 17 Rate Blood Pressure 147/98 150/92 (mmHg) O2 Sat by Pulse 95 97 Oximetry 09/02/18 07:26 Temperature 97.3 F Pulse Rate 70 Respiratory 16 Rate Blood Pressure 149/90 (mmHg) O2 Sat by Pulse 100 Oximetry - Intake and Output Intake and Output: Intake & Output 08/30/18 08/31/18 09/01/18 09/02/18 11:59 11:59 11:59 11:59 Intake Total 1900 3365 Output Total 850 Balance 1900 2515 Weight 146 lb 6.4 oz Intake: IV Fluids 675 LR 675 IVPB 1900 NS 1900 Oral 0 2690 Output: Urine 850 Other: Estimated Void Large # Bowel Movements 3 4 Estimated Stool Amount Large Large # Voids 1 ADLs: Meal Record Start: 09/01/18 03: 40 Freq: DAILY@0900,1400,1800 Status: Active Protocol: Created 09/01/18 03:40 System (Rec: 09/01/18 03:40 System TELE-C09) Document 09/01/18 09:00 [id number] (Rec: 09/01/18 09:17 [id number] TELE-C03) Document 09/01/18 13:32 [id number] (Rec: 09/01/18 13:33 [id number] TELE-C08) Document 09/01/18 18:00 [id number] (Rec: 09/01/18 18:23 [id number] TELE-C07) Document 09/02/18 09:00 [id number] (Rec: 09/02/18 09:32 [id number] TELE-C08) Intake and Output Start: 08/31/18 14: 29 Freq: Status: Active Protocol: Created 08/31/18 14:29 System (Rec: 08/31/18 14:29 System ED-C24) Intake and Output Start: 09/01/18 03: 40 Freq: DAILY@0600,1400,2200 Status: Active Protocol: Created 09/01/18 03:40 System (Rec: 09/01/18 03:40 System TELE-C09) Document 09/01/18 06:00 [id number] (Rec: 09/01/18 06:43 [id number] TELE-C34) Document 09/01/18 10:41 [id number] (Rec: 09/01/18 10:41 [id number] TELE-C02) Document 09/01/18 13:40 [id number] (Rec: 09/01/18 13:40 [id number] TELE-C08) Document 09/01/18 21:58 [id number] (Rec: 09/01/18 21:59 [id number] TELE-C08) Document 09/02/18 02:59 [id number] (Rec: 09/02/18 02:59 HCT1519 TELE-C09) Document 09/02/18 04:38 [id number] (Rec: 09/02/18 04:38 [id number] TELE-C09) Document 09/02/18 05:45 [id number] (Rec: 09/02/18 05:45 [id number] TELE-C09) Document 09/02/18 06:06 [id number] (Rec: 09/02/18 06:06 [id number] TELE-C09) - Physical Exam General Physical Exam Comment: Severe Parkinson's and tardive dyskinesia. He is not in acute distress and he was sitting in a chair when I entered - I bought him back to the bed to examine his abdomen. He has bandaids distal to both knees that Noemí Rolle dressed after a recent fall General: No Cyanosis, No Anemia, No Jaundice, No Clubbing Lungs and Chest: Yes: Chest Expansion Full, Chest Expansion Symetrica, Percussion Note Resonant, Vessicular Breath Sounds. No: Crackles, Wheezes Heart Rate and Rhythm: Regular Additional Cardiovascular: Yes: Normal Heart Sounds. No: Heart Murmur, Pedal Edema Abdominal Exam: Yes: Distention - but only mild, Soft, Abdominal Tenderness - mild tenderness lower abdomen, Bowel Sounds Present. No: Rigidity, Abdominal Mass, Hepatomegaly, Splenomegaly, Guarding, Rebound Tenderness, Kidneys Palpable Results - Results Lab Results: Laboratory Results - last 24 hr 09/01/18 09/02/18 09/02/18 05:22 04:56 04:56 WBC 3.9 RBC 4.09 L Hgb 13.4 L Hct 38 L MCV 94 MCH 33 H MCHC 35 RDW 14 Plt Count 173 MPV 6.9 L Neut % (Auto) 52.3 Lymph % (Auto) 35.3 [facility] % (Auto) 9.2 Eos % (Auto) 2.8 Baso % (Auto) 0.4 Absolute Neuts (auto) 2.0 Absolute Lymphs (auto) 1.4 Absolute Monos (auto) 0.4 Absolute Eos (auto) 0.1 Absolute Basos (auto) 0.0 Absolute Nucleated RBC 0.0 Nucleated RBC % 0.1 Sodium 128 L 130 L Potassium 4.2 3.7 Chloride 96 L 97 L Carbon Dioxide 28 28 Anion Gap 4 5 BUN 27 H 16 Creatinine 0.80 0.77 Est GFR ( Amer) 118.5 123.9 Est GFR (Non-Af Amer) 98.0 102.4 BUN/Creatinine Ratio 33.8 H 20.8 H Glucose 98 86 Calcium 8.3 L 8.3 L Phosphorus 2.8 Magnesium 2.3 Total Bilirubin 1.00 1.10 H Direct Bilirubin 0.20 H 0.20 H Indirect Bilirubin 0.8 0.9 AST 40 H 34 ALT 51 20 Alkaline Phosphatase 62 58 Total Protein 5.5 L 5.5 L Albumin 3.5 3.4 Globulin 2.0 2.1 Albumin/Globulin Ratio 1.8 1.6 Radiology Results: Patient Name: ADRIEL GANT Medical Record#: [id number] Ordering Physician: Lizet Vail MD Acct.#: [id number] : 1955 Age: 62 Sex: M Location: [address] [place] [address]/TELEMETRY Exam Date: 09/02/18 0800 ADM Status: ADM IN Order Information: ABDOMEN (COMPLETE) 2 VWS Accession Number: [id number] CPT: 99953 Indication: Sigmoid volvulus Flat and upright views of the abdomen demonstrates moderately dilated loops of small bowel and colon. There is been partial decompression with decreased in size right colon. Air distended transverse colon is noted. Mildly distended small bowel loops with air -fluid levels are noted. IMPRESSION: There appears to be decreasing caliber of large bowel distention when compared to previous exam of September 01, 2018. <Electronically signed by Ivett Inman MD in [place]> 09/02/18 0849 Dictated By: Ivett Inman MD Dictated Date/Time: 09/02/1849 Transcribed Date/Time: 09/02/18 0848 Copy to: CC:Derrick Busch MD; Lizet Vail MD; Chuy Niño MD; Jeanna Baum MD Imaging - [facility] Imaging - [place] [facility] [address] [place] [address] ph ([phone]) ph ([phone]) ph ([phone]) Assessment - Problem List Assessment: Patient Problems Sigmoid volvulus (Acute) DVT prophylaxis (Chronic) Depression (Chronic) Full code status (Chronic) Parkinson disease (Chronic) Pre-diabetes (Chronic) Schizophrenia (Chronic) Tardive dyskinesia (Chronic) Plan: Sigmoid volvulus (Acute) He has had some decompression and great symptomatic relief following his sigmoidoscopy. He continues to have a rectal tube in situ. He has no other new symptoms. There is an association of sigmoid volvulus with Parkinson's disease. This is described as being due to constipation. Actually, Adriel Gant denies chronic constipation. I wonder if there is some problem with dopamine agonist therapy and the colon - causing a motility disorder that leads to this association. The literature recommends ultimately surgical resection of redundant colon - the literature comprises case reports and there is no systematic exploration of any alternative management plan. Secondary diagnoses: DVT prophylaxis (Chronic) Depression (Chronic) Full code status (Chronic) Parkinson disease (Chronic) Pre-diabetes (Chronic) Schizophrenia (Chronic) Tardive dyskinesia (Chronic) I explained the above to the patient and provided him with education reading material. I called his , Noemí Rolle. She states she has had problems with constipation in the past. His abdomen has swollen for a while. [facility]. 2016 Sep;46(3):157-159. doi: 10.4997/JRCPE.2016.303. Seven cases of sigmoid volvulus in Parkinson's disease. Moy Galan, Diana Bliss, Pepe Dawson. Author information 1 [facility] of [facility] [address], E-mail [email or web address]. Abstract Non-motor features of Parkinson's disease are receiving greater recognition. Constipation affects up to 50% of patients with Parkinson's disease and sigmoid volvulus remains an under recognised complication with mortality rates up to 50% . The incidence of sigmoid volvulus in the general population is 1.7/100,000/ year. The specific incidence in Parkinson's disease is not known; however, this case series suggests that it is noticeably more than in the general population at 100/100,000/year. This paper highlights the importance of early recognition and treatment of constipation to prevent volvulus developing and thevarious treatments currently available.
--- NOTE | 2018-09-02 13:00 | PN ---
Progress Note - Progress Note Date of Service: 09/02/18 Note: Surgery Progress Note S: Patient has no complaints today. He denies pain. He has been having several bowel movements and had a rectal tube placed. Tolerated CLD without emesis or difficulty. O: Vital Signs: Temp Pulse Resp BP Pulse Ox 97.3 F 74 18 150/92 97 09/02/18 10:45 09/02/18 10:45 09/02/18 10:45 09/02/18 10:45 09/02/18 10:45 Intake & Output 09/01/18 09/02/18 09/02/18 22:59 06:59 14:59 Intake Total 1755 0 680 Output Total 850 Balance 1755 -850 680 Intake: IV Fluids 675 LR 675 Oral 1080 0 680 Output: Urine 850 Other: Estimated Void Large # Bowel Movements 4 Estimated Stool Amount Large # Voids 1 Laboratory Results - last 24 hr 09/02/18 09/02/18 04:56 04:56 WBC 3.9 RBC 4.09 L Hgb 13.4 L Hct 38 L MCV 94 MCH 33 H MCHC 35 RDW 14 Plt Count 173 MPV 6.9 L Neut % (Auto) 52.3 Lymph % (Auto) 35.3 [place] % (Auto) 9.2 Eos % (Auto) 2.8 Baso % (Auto) 0.4 Absolute Neuts (auto) 2.0 Absolute Lymphs (auto) 1.4 Absolute Monos (auto) 0.4 Absolute Eos (auto) 0.1 Absolute Basos (auto) 0.0 Absolute Nucleated RBC 0.0 Nucleated RBC % 0.1 Sodium 130 L Potassium 3.7 Chloride 97 L Carbon Dioxide 28 Anion Gap 5 BUN 16 Creatinine 0.77 Est GFR ( Amer) 123.9 Est GFR (Non-Af Amer) 102.4 BUN/Creatinine Ratio 20.8 H Glucose 86 Calcium 8.3 L Total Bilirubin 1.10 H Direct Bilirubin 0.20 H Indirect Bilirubin 0.9 AST 34 ALT 20 Alkaline Phosphatase 58 Total Protein 5.5 L Albumin 3.4 Globulin 2.1 Albumin/Globulin Ratio 1.6 Physical exam: Abdomen- distended, non tender, +tympany, improved since yesterday Imaging: Abd x ray- slightly less distended loops of colon A/P: 62 M with schizophrenia, Parkinsons with sigmoid volvulus, s/p endoscopic decompression. - Patient appears improved clinically today. Endoscopic decompression by Dr. Cobb was successful in reducing the acute volvulus. He remains distended though and it is unclear how close to his baseline his current exam is. It is quite possible that he has some element of colonic inertia or dysmotility from his levodopa and other neurologic medications. Given that he is at high risk for repeat volvulus I discussed with him that he would need a sigmoid resection either on this admission or soon as an outpatient. If he can achieve further decompression then his surgery could possibly be done laparoscopically without an ostomy. - Continue CLD - Discussed with Dr. Busch
--- NOTE | 2018-09-02 15:30 | PN ---
Progress Note - Progress Note Date of Service: 09/02/18 Note: GASTROENTEROLOGY FOLLOW-UP NOTE IE/S: - Finished 1/2 of [employer] jug and had significant loose stools. - Still having some loose stools (fecal containment system in place). - Patient feeling much more comfortable. O: VS: Tmax 99.2, BP and HR ok GEN: Tired-appearing gentleman. Parkinson's resting tremor. CV: RRR PULM: Breathing comfortably ABD: Hypoactive BS. Soft. Mild abdominal distention. No significant tenderness. EXT: No edema Reviewed abdominal x-ray -- some improvement in colonic distention. A/P: 62yM w/ diabetes, parkinson's disease, and schizophrenia, who is admitted w/ sigmoid volvulus. Underwent flex sig w/ decompression on 08/31. Endoscopic de-torsion successful as patient is having +bowel movements. Abdomen feels less distended. Imaging showing improvement. Patient may have underlying chronic colonic inertia or dilation at baseline given his medical co-morbidities and medications. - Continue clears. Advance diet per surgery -- will likely depend on plan for surgery this admission vs observation. If no surgery planned, then can patient' s diet can likely be slowly advanced and monitored clinically. - Recommend bowel regimen once acute clinical issue resolves. Can trial Metamucil daily +/- Miralax daily or PRN. Can schedule follow-up in GI clinic if patient would like to be seen. Contact GI with further questions or concerns. Destinee Cobb MD Gastroenterology
[2018-09-02] MEDS: LORazepam TAB(*) 1 MG PO PRN ×2 (18:08→22:04)
--- NOTE | 2018-09-03 08:45 | PN ---
Subjective - Subjective Reason for Note: Progress Note History: Adriel Gant is having some tenderness in his lower abdomen. However, the pain is not severe and no worse than yesterday. He has had no fevers/sweats or chills. He is not nauseated and has not vomited. He denies chest pain, dyspnea, palpitations. He has no cough/sputum Active Problems: Active Problems Sigmoid volvulus (Acute) - Passing stool and gas. - S/P Sigmoidoscopy, repeat abd xray shows less distention. - Appreciate GI and Surgery consultations. GI recommended go- lytely to clear out stool in the event that volvulus returns. Dr Baum notes that patient - Continue clear liquid diet. IVF. - Flexiseal in situ. DVT prophylaxis (Chronic) Z29.9 - SCDs Depression (Chronic) F32.9 - Continue sertraline. Full code status (Chronic) Z78.9 Parkinson disease (Chronic) G20 - Continue carbidopa-levodopa, benztropine, and amantadine. Pre-diabetes (Chronic) R73.03 - Hold metformin. Schizophrenia (Chronic) F20.9 - Continue prolixin. Tardive dyskinesia (Chronic) G24.01 Current Medications: Current Medications Amantadine HCl (Symmetrel Cap*) 100 mg PO DAILY [facility] Last Admin: 09/02/18 09:13 Dose: 100 mg Benztropine Mesylate (Cogentin Tab*) 1 mg PO QID PRN PRN Reason: AGITATION Carbidopa/Levodopa (Sinemet 25/100 Tab(*)) 0.5 tab PO TID [facility] Last Admin: 09/02/18 22:08 Dose: Not Given Fluphenazine HCl (Prolixin Tab*) 10 mg PO DAILY [facility] Last Admin: 09/02/18 09:13 Dose: 10 mg Lorazepam (Ativan Tab(*)) 1 mg PO TID PRN PRN Reason: ANXIETY Last Admin: 09/02/18 22:04 Dose: 1 mg Sertraline HCl (Zoloft*) 150 mg PO DAILY [facility] Last Admin: 09/02/18 09:13 Dose: 150 mg Home Medications: Home Medications Medication Instructions Recorded Confirmed Type Benztropine TAB* [Cogentin TAB*] 1 mg PO QID PRN 12/18/12 09/01/18 History LORazepam TAB(*) [Ativan TAB(*)] 1 mg PO QID PRN 12/18/12 09/01/18 History Amantadine CAP* [Symmetrel CAP*] 100 mg PO DAILY 08/31/18 09/01/18 History Carbidopa/Levodop 25/100 MG(*) 0.5 tab PO TID 08/31/18 09/01/18 History [Sinemet 25/100 TAB(*)] QUEtiapine TAB* [Seroquel 25 MG 25 mg PO Q2HR PRN 08/31/18 09/01/18 History TAB*] Sertraline* [Zoloft*] 150 mg PO DAILY 08/31/18 09/01/18 History metFORMIN* [Glucophage 500 MG TAB 250 mg PO QPM 08/31/18 09/01/18 History *] fluPHENAZine HCL TAB* [Prolixin 10 mg PO DAILY 09/01/18 09/01/18 History TAB*] Allergies: Allergies Allergy/AdvReac Type Severity Reaction Status Date / Time No Known Allergies Allergy Verified 08/31/18 14:30 Objective - Vital Signs Vital Signs: Vital Signs 09/02/18 09/02/18 09/02/18 10:45 18:08 19:24 Temperature 97.3 F 97.6 F Pulse Rate 74 83 Respiratory 18 19 18 Rate Blood Pressure 150/92 133/92 (mmHg) O2 Sat by Pulse 97 99 Oximetry 09/02/18 09/02/18 09/02/18 20:00 22:04 22:15 Temperature 97.7 F Pulse Rate 62 Respiratory 18 16 18 Rate Blood Pressure 142/96 (mmHg) O2 Sat by Pulse 97 Oximetry 09/03/18 09/03/18 00:00 02:13 Temperature 97.5 F Pulse Rate 62 Respiratory 16 18 Rate Blood Pressure 164/91 (mmHg) O2 Sat by Pulse 98 Oximetry - Intake and Output Intake and Output: Intake & Output 08/31/18 09/01/18 09/02/18 09/03/18 11:59 11:59 11:59 11:59 Intake Total 1900 3365 1979 Output Total 850 3550 Balance 1900 2515 -1570 Weight 146 lb 6.4 oz Intake: IV Fluids 675 LR 675 IVPB 1900 NS 1900 Oral 0 2690 1979 Output: Urine 850 3550 Other: Estimated Void Large Large # Bowel Movements 3 4 Estimated Stool Amount Large Large # Voids 1 1 ADLs: Meal Record Start: 09/01/18 03: 40 Freq: DAILY@0900,1400,1800 Status: Active Protocol: Created 09/01/18 03:40 System (Rec: 09/01/18 03:40 System TELE-C09) Document 09/01/18 09:00 [id number] (Rec: 09/01/18 09:17 [id number] TELE-C03) Document 09/01/18 13:32 [id number] (Rec: 09/01/18 13:33 [id number] TELE-C08) Document 09/01/18 18:00 [id number] (Rec: 09/01/18 18:23 APG3697 TELE-C07) Document 09/02/18 09:00 [id number] (Rec: 09/02/18 09:32 DPW8942 TELE-C08) Document 09/02/18 14:00 [id number] (Rec: 09/02/18 15:35 [id number] MED-C09) Document 09/02/18 18:00 [id number] (Rec: 09/02/18 18:42 HYM5715 MED-C11) Intake and Output Start: 08/31/18 14: 29 Freq: Status: Active Protocol: Created 08/31/18 14:29 System (Rec: 08/31/18 14:29 System ED-C24) Intake and Output Start: 09/01/18 03: 40 Freq: DAILY@0600,1400,2200 Status: Active Protocol: Created 09/01/18 03:40 System (Rec: 09/01/18 03:40 System TELE-C09) Document 09/01/18 06:00 [id number] (Rec: 09/01/18 06:43 SYJ4061 TELE-C34) Document 09/01/18 10:41 [id number] (Rec: 09/01/18 10:41 IIM1010 TELE-C02) Document 09/01/18 13:40 [id number] (Rec: 09/01/18 13:40 [id number] TELE-C08) Document 09/01/18 21:58 [id number] (Rec: 09/01/18 21:59 [id number] TELE-C08) Document 09/02/18 02:59 [id number] (Rec: 09/02/18 02:59 [id number] TELE-C09) Document 09/02/18 04:38 OYU2261 (Rec: 09/02/18 04:38 QHW2894 TELE-C09) Document 09/02/18 05:45 [id number] (Rec: 09/02/18 05:45 CJV2601 TELE-C09) Document 09/02/18 06:06 [id number] (Rec: 09/02/18 06:06 WGR1665 TELE-C09) Document 09/02/18 14:00 [id number] (Rec: 09/02/18 15:35 [id number] MED-C09) Document 09/02/18 22:00 [id number] (Rec: 09/02/18 22:03 KQC9006 MED-C07) Document 09/03/18 06:00 [id number] (Rec: 09/03/18 06:10 IYV9218 MED-C07) - Physical Exam General Physical Exam Comment: Signs of advanced Parkinson's disease and tardive dyskinesia. Hemodynamically stable General: No Cyanosis, No Anemia, No Jaundice, No Clubbing Lungs and Chest: Yes: Chest Expansion Full, Chest Expansion Symetrica, Percussion Note Resonant, Vessicular Breath Sounds. No: Crackles, Wheezes Heart Rate and Rhythm: Regular Additional Cardiovascular: No: Heart Murmur, Pedal Edema Abdominal Exam: Yes: Distention, Soft, Abdominal Tenderness - both lower quadrants, Bowel Sounds Present. No: Abdominal Mass, Hepatomegaly, Guarding, Rebound Tenderness, Kidneys Palpable Results - Results Radiology Results: Patient Name: ADRIEL GANT Medical Record#: [id number] Ordering Physician: Derrick Busch MD Acct.#: [id number] : 1955 Age: 62 Sex: M Location: [address] [place] [address] - MEDICAL Exam Date: 09/03/18 0600 ADM Status: ADM IN Order Information: ABDOMEN (COMPLETE) 2 S Accession Number: [id number] CPT: 78849 INDICATION: Sigmoid volvulus COMPARISON: Most recent comparison abdominal radiograph is dated September 02, 2018 TECHNIQUE: Supine and upright views of the abdomen were obtained. FINDINGS: The colon is mostly air-filled measuring up to 5.9 cm in diameter at the splenic flexure. There is a possibility of gas overlying the rectum. On the supine view there is what appears to be a gas-filled structure measuring 9.8 cm in diameter with "beaking " towards the rectum, and appearance associated with sigmoid volvulus. IMPRESSION: Dilated air-filled structure measuring 9.8 cm in diameter with "beaking", an appearance associated with sigmoid volvulus. <Electronically signed by Steve Joya MD in [place]> 09/03/18 08 Dictated By: Steve Joya MD Dictated Date/Time: 09/03/18 08 Transcribed Date/Time: 09/03/18 0752 Copy to: CC:Derrick Busch MD; Stephanie Flores MD; Chuy Niño MD; Jeanna Baum MD Imaging - [facility] [place] [facility] [address] [place] [address] ph ([phone]) ph ([phone]) ph ([phone]) This report is only to be considered final once signed by the Provider(s) as displayed in the "<Electronically Signed by >" field (s). Absence of a signature indicates the report is in a draft status and still needs to be finalized. In the event this document was created by someone other than the signing Provider, the individual initiating the document will be listed in the "Entered by:" or "Dictated by:" barrow. 1 of 1 Assessment - Problem List Assessment: Patient Problems Sigmoid volvulus (Acute) DVT prophylaxis (Chronic) Depression (Chronic) Full code status (Chronic) Parkinson disease (Chronic) Pre-diabetes (Chronic) Schizophrenia (Chronic) Tardive dyskinesia (Chronic) Plan: Sigmoid volvulus (Acute) I spoke with Dr. Steve Joya who assesses his AXR as showing worsening since yesterday. I am not convinced he has a recurrent volvulus - this may be chronic immotility. However, I am inclined to a surgical pathway and have placed a call into the surgical team expressing this. The patient is fearful of a colostomy - I explained if this happens, it can be re-anastamosed later. Secondary diagnoses: DVT prophylaxis (Chronic) Depression (Chronic) Full code status (Chronic) Parkinson disease (Chronic) Pre-diabetes (Chronic) Schizophrenia (Chronic) Tardive dyskinesia (Chronic) I discussed the above with the patient. I called his Noemí Rolle - I explained this to her. She is fearful. I spoke with Dr. Jeanna Baum - she agrees with a surgical approach and has OR time this afternoon.
[2018-09-03] MEDS ORDERED: Lactated Ringers 1000 ML Bag* 1,000 ML IV SCH (09:00)
[2018-09-03 09:10] LABS: ABS Eosinophils 0.1 10^3/ul (0-0.6); ABS Lymphocytes 0.9 10^3/ul (1.0-4.8); ABS Monocytes 0.3 10^3/ul (0-0.8); ABS Neutrophils 3.4 10^3/ul (1.5-7.7); Eosinophil % 1.7 %; Hematocrit 41 % (42-52); Hemoglobin 14.1 g/dL (14.0-18.0); Lymphocyte % 19.1 %; Mean Corpuscular HGB Conc 34 g/dL (31-36); Mean Corpuscular Hemoglobin 32 pg (27-31); Mean Corpuscular Volume 94 fL (80-94); Mean Platelet Volume 6.7 fL (7.4-10.4); Platelet Count 196 10^3/uL (150-450); Red Blood Count 4.37 10^6 /uL (4.18-5.48); Red Cell Distribution Width 14 % (10-15); White Blood Count 4.7 10^3/uL (3.5-10.8)
[2018-09-03] MEDS: Amantadine CAP* 100 MG PO SCH (09:14)
[2018-09-03] MEDS: Sertraline* 100 MG TAB PO SCH (09:14)
[2018-09-03] MEDS: LORazepam TAB(*) 1 MG PO PRN ×3 (09:14→22:59)
[2018-09-03] MEDS: Carbidopa/Levodop 25/100 MG TAB(*) PO SCH ×3 (09:17→23:00)
[2018-09-03] MEDS: fluPHENAZine HCL TAB* 5 MG PO SCH (09:17)
[2018-09-03 09:27] LABS: BUN/Creatinine Ratio 12.7 (8-20); Calcium 8.7 mg/dL (8.6-10.3); EGFR Non-African American 112.4 (>60); Potassium 3.1 mmol/L (3.5-5.0)
--- NOTE | 2018-09-03 10:18 | PN ---
Progress Note - Progress Note Date of Service: 09/03/18 Note: Surgery Progress Note S: Patient feels well. Does not have complaints of pain. Tolerating CLD. O: Vital Signs: Temp Pulse Resp BP Pulse Ox 97.5 F 62 18 164/91 98 09/03/18 02:13 09/03/18 02:13 09/03/18 09:14 09/03/18 02:13 09/03/18 02:13 Laboratory Last Values WBC 4.7 10^3/uL (3.5-10.8) 09/03/18 08:38 RBC 4.37 10^6 /uL (4.18-5.48) 09/03/18 08:38 Hgb 14.1 g/dL (14.0-18.0) 09/03/18 08:38 Hct 41 % (42-52) L 09/03/18 08:38 MCV 94 fL (80-94) 09/03/18 08:38 MCH 32 pg (27-31) H 09/03/18 08:38 MCHC 34 g/dL (31-36) 09/03/18 08:38 RDW 14 % (10-15) 09/03/18 08:38 Plt Count 196 10^3/uL (150-450) 09/03/18 08:38 MPV 6.7 fL (7.4-10.4) L 09/03/18 08:38 Neut % (Auto) 72.6 % 09/03/18 08:38 Lymph % (Auto) 19.1 % 09/03/18 08:38 [place] % (Auto) 6.1 % 09/03/18 08:38 Eos % (Auto) 1.7 % 09/03/18 08:38 Baso % (Auto) 0.5 % 09/03/18 08:38 Absolute Neuts (auto) 3.4 10^3/ul (1.5-7.7) 09/03/18 08:38 Absolute Lymphs (auto) 0.9 10^3/ul (1.0-4.8) L 09/03/18 08:38 Absolute Monos (auto) 0.3 10^3/ul (0-0.8) 09/03/18 08:38 Absolute Eos (auto) 0.1 10^3/ul (0-0.6) 09/03/18 08:38 Absolute Basos (auto) 0.0 10^3/ul (0-0.2) 09/03/18 08:38 Absolute Nucleated RBC 0.0 10^3/ul 09/03/18 08:38 Nucleated RBC % 0.0 09/03/18 08:38 Sodium 132 mmol/L (135-145) L 09/03/18 08:38 Potassium 3.1 mmol/L (3.5-5.0) L 09/03/18 08:38 Chloride 97 mmol/L (101-111) L 09/03/18 08:38 Carbon Dioxide 27 mmol/L (22-32) 09/03/18 08:38 Anion Gap 8 mmol/L (2-11) 09/03/18 08:38 BUN 9 mg/dL (6-24) 09/03/18 08:38 Creatinine 0.71 mg/dL (0.67-1.17) 09/03/18 08:38 Est GFR ( Amer) 136.0 (>60) 09/03/18 08:38 Est GFR (Non-Af Amer) 112.4 (>60) 09/03/18 08:38 BUN/Creatinine Ratio 12.7 (8-20) 09/03/18 08:38 Glucose 98 mg/dL (70-100) 09/03/18 08:38 Calcium 8.7 mg/dL (8.6-10.3) 09/03/18 08:38 Phosphorus 2.8 mg/dL (2.5-5.0) 09/01/18 05:22 Magnesium 2.3 mg/dL (1.9-2.7) 09/01/18 05:22 Total Bilirubin 1.10 mg/dL (0.2-1.0) H 09/02/18 04:56 Direct Bilirubin 0.20 mg/dL (0.03-0.18) H 09/02/18 04:56 Indirect Bilirubin 0.9 mg/dL (0.3-1.0) 09/02/18 04:56 AST 34 U/L (13-39) 09/02/18 04:56 ALT 20 U/L (7-52) 09/02/18 04:56 Alkaline Phosphatase 58 U/L (34-104) 09/02/18 04:56 Total Protein 5.5 g/dL (6.4-8.9) L 09/02/18 04:56 Albumin 3.4 g/dL (3.2-5.2) 09/02/18 04:56 Globulin 2.1 g/dL (2-4) 09/02/18 04:56 Albumin/Globulin Ratio 1.6 (1-3) 09/02/18 04:56 Urine Color Priyanka 08/31/18 21:36 Urine Appearance Clear 08/31/18 21:36 Urine pH 5.0 (5-9) 08/31/18 21:36 Ur Specific [place] > 1.060 (1.010-1.030) H 08/31/18 21:36 Urine Protein Negative (Negative) 08/31/18 21:36 Urine Ketones Negative (Negative) 08/31/18 21:36 Urine Blood Negative (Negative) 08/31/18 21:36 Urine Nitrate Negative (Negative) 08/31/18 21:36 Urine Bilirubin Negative (Negative) 08/31/18 21:36 Urine Urobilinogen Negative (Negative) 08/31/18 21:36 Ur Leukocyte Esterase Negative (Negative) 08/31/18 21:36 Urine Glucose Negative (Negative) 08/31/18 21:36 Intake & Output 09/02/18 09/03/18 09/03/18 22:59 06:59 14:59 Intake Total 1650 0 Output Total 475 1875 Balance 1175 -1875 Intake: Oral 1650 0 Output: Urine 475 1875 Other: Estimated Void Large # Voids 0 1 Physical exam: Abd: soft, non tender, mildly distended Radiology: AXR: dilated colon, appears fairly unchanged A/P: 62 M with Parkinsons, sigmoid volvulus, s/p decompression. - Patient has had significant clinical improvement in abdominal distension and pain. However, he has persistent dilatation of his colon which may be chronic. I had discussed with him yesterday that he would benefit from a sigmoid colectomy to prevent the risk of re-torsion. - Plan for laparoscopic possible open sigmoid colectomy, possible ostomy tomorrow, 09/[address] Fitzpatrick. - Bowel prep to be ordered tonight and patient can be NPO after midnight
[2018-09-03] MEDS ORDERED: PEG 3000 GI LAVAGE* 1 GALLON PO ONE (10:19)
[2018-09-03] MEDS ORDERED: KCL 20 MEQ/100 ML IVPREMIX* 20 MEQ/100 ML BAG IV ONE (17:55)
[2018-09-04] MEDS: LORazepam TAB(*) 1 MG PO PRN (01:26)
[2018-09-04] MEDS: Potassium Chloride IV* 40 MEQ in Lactated Ringers 1000 ML Bag* 1,000 ML IVPB SCH ×3 (01:28→16:43)
[2018-09-04 06:05] LABS: ABS Eosinophils 0.2 10^3/ul (0-0.6); ABS Lymphocytes 1.2 10^3/ul (1.0-4.8); ABS Monocytes 0.4 10^3/ul (0-0.8); ABS Neutrophils 3.3 10^3/ul (1.5-7.7); Eosinophil % 4.2 %; Hematocrit 39 % (42-52); Lymphocyte % 23.6 %; Mean Corpuscular HGB Conc 36 g/dL (31-36); Mean Corpuscular Hemoglobin 33 pg (27-31); Mean Corpuscular Volume 93 fL (80-94); Mean Platelet Volume 6.4 fL (7.4-10.4); Platelet Count 189 10^3/uL (150-450); Red Blood Count 4.24 10^6 /uL (4.18-5.48); Red Cell Distribution Width 14 % (10-15); White Blood Count 5.1 10^3/uL (3.5-10.8)
[2018-09-04 06:26] LABS: C Reactive Protein 9.25 mg/L (<8.01); Calcium 9.1 mg/dL (8.6-10.3); EGFR African American 138.3 (>60); EGFR Non-African American 114.3 (>60); Potassium 3.7 mmol/L (3.5-5.0)
--- NOTE | 2018-09-04 07:47 | PN ---
Subjective - Subjective Reason for Note: Progress Note History: He fell this morning backwards and hit the back of his head and left elbow. He states he didn't lose consciousness. Asides some pain on his elbow he is feeling fine. He has no headache, no neck or back pain. His vision is normal - no diploplia. He has no vertigo and no new focal weakness. He continues to have some abdominal pain. He denies fevers/sweats. Active Problems: Active Problems Fall (Acute) Sigmoid volvulus (Acute) - Passing stool and gas. - S/P Sigmoidoscopy, repeat abd xray shows less distention. - Appreciate GI and Surgery consultations. GI recommended go- lytely to clear out stool in the event that volvulus returns. Dr Baum notes that patient - Continue clear liquid diet. IVF. - Flexiseal in situ. DVT prophylaxis (Chronic) Z29.9 - SCDs Depression (Chronic) F32.9 - Continue sertraline. Full code status (Chronic) Z78.9 Parkinson disease (Chronic) G20 - Continue carbidopa-levodopa, benztropine, and amantadine. Pre-diabetes (Chronic) R73.03 - Hold metformin. Schizophrenia (Chronic) F20.9 - Continue prolixin. Tardive dyskinesia (Chronic) G24.01 Current Medications: Current Medications Amantadine HCl (Symmetrel Cap*) 100 mg PO DAILY [facility] Last Admin: 09/03/18 09:14 Dose: 100 mg Benztropine Mesylate (Cogentin Tab*) 1 mg PO QID PRN PRN Reason: AGITATION Carbidopa/Levodopa (Sinemet 25/100 Tab(*)) 0.5 tab PO TID [facility] Last Admin: 09/03/18 23:00 Dose: Not Given Fluphenazine HCl (Prolixin Tab*) 10 mg PO DAILY [facility] Last Admin: 09/03/18 09:17 Dose: Not Given Potassium Chloride 40 meq/ (Lactated Ringer's) 1,020 mls @ 100 mls/hr IVPB Q10H [facility] Last Admin: 09/04/18 03:59 Dose: Not Given Ertapenem 1 gm/ Sodium (Chloride) 50 mls @ 100 mls/hr IVPB ONCE ONE Stop: 09/04/18 09:29 Lorazepam (Ativan Tab(*)) 1 mg PO TID PRN PRN Reason: ANXIETY Last Admin: 09/04/18 01:26 Dose: 1 mg Sertraline HCl (Zoloft*) 150 mg PO DAILY [facility] Last Admin: 09/03/18 09:14 Dose: 150 mg Home Medications: Home Medications Medication Instructions Recorded Confirmed Type Benztropine TAB* [Cogentin TAB*] 1 mg PO QID PRN 12/18/12 09/01/18 History LORazepam TAB(*) [Ativan TAB(*)] 1 mg PO QID PRN 12/18/12 09/01/18 History Amantadine CAP* [Symmetrel CAP*] 100 mg PO DAILY 08/31/18 09/01/18 History Carbidopa/Levodop 25/100 MG(*) 0.5 tab PO TID 08/31/18 09/01/18 History [Sinemet 25/100 TAB(*)] QUEtiapine TAB* [Seroquel 25 MG 25 mg PO Q2HR PRN 08/31/18 09/01/18 History TAB*] Sertraline* [Zoloft*] 150 mg PO DAILY 08/31/18 09/01/18 History metFORMIN* [Glucophage 500 MG TAB 250 mg PO QPM 08/31/18 09/01/18 History *] fluPHENAZine HCL TAB* [Prolixin 10 mg PO DAILY 09/01/18 09/01/18 History TAB*] Allergies: Allergies Allergy/AdvReac Type Severity Reaction Status Date / Time No Known Allergies Allergy Verified 08/31/18 14:30 Objective - Vital Signs Vital Signs: Vital Signs 09/03/18 09/03/18 09/03/18 08:00 09:14 11:15 Temperature 97.9 F Pulse Rate 78 Respiratory 16 18 18 Rate Blood Pressure 148/88 (mmHg) O2 Sat by Pulse 99 Oximetry 09/03/18 09/03/18 09/03/18 12:20 15:15 15:47 Temperature 97.8 F Pulse Rate 68 Respiratory 16 22 16 Rate Blood Pressure 147/92 (mmHg) O2 Sat by Pulse 98 Oximetry 09/03/18 09/03/18 09/03/18 17:50 19:15 20:00 Temperature 97.9 F Pulse Rate 71 Respiratory 16 18 18 Rate Blood Pressure 139/96 (mmHg) O2 Sat by Pulse 100 Oximetry 09/03/18 09/03/18 09/04/18 22:59 23:30 00:30 Temperature 97.2 F Pulse Rate 61 Respiratory 18 18 16 Rate Blood Pressure 145/97 (mmHg) O2 Sat by Pulse Oximetry 09/04/18 09/04/18 01:26 03:23 Temperature 98.3 F Pulse Rate 65 Respiratory 16 18 Rate Blood Pressure 145/88 (mmHg) O2 Sat by Pulse 95 Oximetry - Intake and Output Intake and Output: Intake & Output 09/01/18 09/02/18 09/03/18 09/04/18 11:59 11:59 11:59 11:59 Intake Total 1900 3365 1980 3950 Output Total 850 3550 2220 Balance 1900 2515 -1570 1730 Weight 146 lb 6.4 oz Intake: IV Fluids 675 LR 675 IVPB 1900 NS 1900 Oral 0 2690 1979 3950 Output: Urine 850 3550 2220 Other: Estimated Void Large Large Small # Bowel Movements 3 4 Estimated Stool Amount Large Large Large # Voids 1 1 3 ADLs: Meal Record Start: 09/01/18 03: 40 Freq: DAILY@0900,1400,1800 Status: Active Protocol: Created 09/01/18 03:40 System (Rec: 09/01/18 03:40 System TELE-C09) Document 09/01/18 09:00 [id number] (Rec: 09/01/18 09:17 [id number] TELE-C03) Document 09/01/18 13:32 [id number] (Rec: 09/01/18 13:33 [id number] TELE-C08) Document 09/01/18 18:00 [id number] (Rec: 09/01/18 18:23 [id number] TELE-C07) Document 09/02/18 09:00 [id number] (Rec: 09/02/18 09:32 [id number] TELE-C08) Document 09/02/18 14:00 [id number] (Rec: 09/02/18 15:35 [id number] MED-C09) Document 09/02/18 18:00 [id number] (Rec: 09/02/18 18:42 [id number] MED-C11) Document 09/03/18 09:00 [id number] (Rec: 09/03/18 18:28 [id number] MED-C11) Document 09/03/18 14:00 HVC2032 (Rec: 09/03/18 18:30 [id number] MED-C11) Document 09/03/18 18:00 [id number] (Rec: 09/03/18 18:53 [id number] MED-C11) Intake and Output Start: 08/31/18 14: 29 Freq: Status: Active Protocol: Created 08/31/18 14:29 System (Rec: 08/31/18 14:29 System ED-C24) Intake and Output Start: 09/01/18 03: 40 Freq: DAILY@0600,1400,2200 Status: Active Protocol: Created 09/01/18 03:40 System (Rec: 09/01/18 03:40 System TELE-C09) Document 09/01/18 06:00 [id number] (Rec: 09/01/18 06:43 [id number] TELE-C34) Document 09/01/18 10:41 IID9098 (Rec: 09/01/18 10:41 [id number] TELE-C02) Document 09/01/18 13:40 VCB4625 (Rec: 09/01/18 13:40 WFK0900 TELE-C08) Document 09/01/18 21:58 YNN0615 (Rec: 09/01/18 21:59 [id number] TELE-C08) Document 09/02/18 02:59 KDM2429 (Rec: 09/02/18 02:59 JNI6058 TELE-C09) Document 09/02/18 04:38 UBD0121 (Rec: 09/02/18 04:38 EGQ3857 TELE-C09) Document 09/02/18 05:45 YXM9032 (Rec: 09/02/18 05:45 MKZ0116 TELE-C09) Document 09/02/18 06:06 JQK6517 (Rec: 09/02/18 06:06 JLS2217 TELE-C09) Document 09/02/18 14:00 [id number] (Rec: 09/02/18 15:35 [id number] MED-C09) Document 09/02/18 22:00 KBA6625 (Rec: 09/02/18 22:03 [id number] MED-C07) Document 09/03/18 06:00 [id number] (Rec: 09/03/18 06:10 [id number] MED-C07) Document 09/03/18 14:00 ZST1808 (Rec: 09/03/18 18:34 [id number] MED-C11) Document 09/03/18 20:59 [id number] (Rec: 09/03/18 20:59 [id number] MED-C04) Document 09/03/18 22:00 NLH4481 (Rec: 09/03/18 22:38 TDQ7626 MED-C02) Document 09/03/18 23:06 [id number] (Rec: 09/03/18 23:06 WWQ1503 MED-M16) Document 09/04/18 05:57 [id number] (Rec: 09/04/18 05:58 [id number] MED-C02) - Physical Exam General Physical Exam Comment: Left handed. Alert and oriented x 3. He has his usual signs of Parkinson's disease - tremor, increased tone, cogwheeling rigidity. He has no tenderness or bruising over his scalp and no lacerations. He has a full ROM of his left elbow and also supination/pronation. There is no deformity or abrasion. General: No Cyanosis, No Anemia, No Jaundice, No Clubbing Eye Exam: bilateral: PERRLA, Normal Fundi - sharp optic discs, EOMI, Nystagmus - no nystagmus, Vision Field - full to confrontation Skin: Normal: Rash Lungs and Chest: Yes: Chest Expansion Full, Chest Expansion Symetrica, Percussion Note Resonant, Vessicular Breath Sounds. No: Crackles, Wheezes Heart Rate and Rhythm: Regular Additional Cardiovascular: Yes: Normal Heart Sounds. No: Heart Murmur, Pedal Edema Abdominal Exam: Yes: Distention - Improved, Soft, Abdominal Tenderness - slight generealized, Bowel Sounds Present. No: Rigidity, Guarding, Rebound Tenderness - Extremities Cranial Nerves II-XII Intact: Yes Limbs: Normal Power, Normal Tone, Normal Coordination - finger-nose and heel- carpio, Normal Sensation - Neuro Orientation: A/O x3 Psychiatric: Normal Speech: Normal Results - Results Lab Results: Laboratory Results - last 24 hr 09/03/18 09/03/18 09/03/18 08:34 08:38 08:38 WBC 4.7 RBC 4.37 Hgb 14.1 Hct 41 L MCV 94 MCH 32 H MCHC 34 RDW 14 Plt Count 196 MPV 6.7 L Neut % (Auto) 72.6 Lymph % (Auto) 19.1 [place] % (Auto) 6.1 Eos % (Auto) 1.7 Baso % (Auto) 0.5 Absolute Neuts (auto) 3.4 Absolute Lymphs (auto) 0.9 L Absolute Monos (auto) 0.3 Absolute Eos (auto) 0.1 Absolute Basos (auto) 0.0 Absolute Nucleated RBC 0.0 Nucleated RBC % 0.0 Sodium 132 L Potassium 3.1 L Chloride 97 L Carbon Dioxide 27 Anion Gap 8 BUN 9 Creatinine 0.71 Est GFR ( Amer) 136.0 Est GFR (Non-Af Amer) 112.4 BUN/Creatinine Ratio 12.7 Glucose 98 Calcium 8.7 Troponin I C-Reactive Protein Blood Type O Positive Antibody Screen Negative 09/04/18 09/04/18 09/04/18 05:54 05:54 05:54 WBC 5.1 RBC 4.24 Hgb 14.0 Hct 39 L MCV 93 MCH 33 H MCHC 36 RDW 14 Plt Count 189 MPV 6.4 L Neut % (Auto) 64.3 Lymph % (Auto) 23.6 [place] % (Auto) 7.2 Eos % (Auto) 4.2 Baso % (Auto) 0.7 Absolute Neuts (auto) 3.3 Absolute Lymphs (auto) 1.2 Absolute Monos (auto) 0.4 Absolute Eos (auto) 0.2 Absolute Basos (auto) 0.0 Absolute Nucleated RBC 0.0 Nucleated RBC % 0.0 Sodium 135 Potassium 3.7 Chloride 99 L Carbon Dioxide 27 Anion Gap 9 BUN 7 Creatinine 0.70 Est GFR ( Amer) 138.3 Est GFR (Non-Af Amer) 114.3 BUN/Creatinine Ratio 10.0 Glucose 95 Calcium 9.1 Troponin I 0.01 C-Reactive Protein 9.25 H Blood Type Antibody Screen Radiology Results: I have reviewed the CT scan brain personally and also with radiology - there are no signs of any acute findings EKG Report: 64 WI 153 QTc 422 QRS axis 25. Normal sinus rhythm - I have inspected this directly Assessment - Problem List Assessment: Patient Problems Fall (Acute) Sigmoid volvulus (Acute) DVT prophylaxis (Chronic) Depression (Chronic) Full code status (Chronic) Parkinson disease (Chronic) Pre-diabetes (Chronic) Schizophrenia (Chronic) Tardive dyskinesia (Chronic) Plan: Fall (Acute) He had a mechanical fall and hit the back of his head. He has no neurological symptoms or signs and I have reviewed his CT brain, EKG and labs - they are all normal. He has pain on his left elbow - but has no deformity and full ROM. I will obtain an X-ray Sigmoid volvulus (Acute) He is due to go to surgery today and is at low medical risk from the procedure (Revised RCRI calculator 0.9% risk). Secondary diagnoses DVT prophylaxis (Chronic) Depression (Chronic) Full code status (Chronic) Parkinson disease (Chronic) he is declining his L-dopa/carbidopa on the grounds that he doesn't think it helps. Pre-diabetes (Chronic) Schizophrenia (Chronic) Tardive dyskinesia (Chronic) I have evaluated him carefully after his fall and do not think this is a barrier to his surgery today. I think he is at low medical risk of proceeding to surgery and do not think he requires any additional risk stratification. I think he should proceed with surgery owing to his acute issue.
[2018-09-04] MEDS ORDERED: Acetaminophen TAB* 325 MG PO PRN ×2 (08:04→13:52)
[2018-09-04] MEDS: fluPHENAZine HCL TAB* 5 MG PO SCH (08:08)
[2018-09-04] MEDS: Amantadine CAP* 100 MG PO SCH (08:08)
[2018-09-04] MEDS: Carbidopa/Levodop 25/100 MG TAB(*) PO SCH ×3 (08:08→19:08)
[2018-09-04] MEDS: Sertraline* 100 MG TAB PO SCH (08:08)
[2018-09-04] MEDS ORDERED: Ertapenem* 1 GM in NS 0.9% 50 ML* 50 ML IVPB ONE (09:00)
[2018-09-04] MEDS ORDERED: Rocuronium* 10 MG/ML VIAL ONE ×2 (11:22→13:10)
[2018-09-04] MEDS ORDERED: Propofol* 10 MG/ML 20 ML BTL ONE ×2 (11:22→11:36)
[2018-09-04] MEDS ORDERED: Midazolam* 1 MG/ML 2 ML VIAL (2 MG) ONE (11:22)
[2018-09-04] MEDS ORDERED: fentaNYL* 50 MCG/ML 2 ML VIAL (100 MCG VIAL) ONE ×3 (11:22→14:56)
[2018-09-04] MEDS ORDERED: Ondansetron ODT TAB* 4 MG PO ONE (11:23)
[2018-09-04] MEDS ORDERED: Dexamethasone TAB* 4 MG PO ONE (11:23)
[2018-09-04] MEDS ORDERED: Buffered Lidocaine 1% SYRIN* 1 ML/SYRINGE INTRADERM ONE (11:23)
[2018-09-04] MEDS ORDERED: Famotidine IV* 10 MG/ML 2 ML (20 mg) IV ONE (11:23)
[2018-09-04] MEDS ORDERED: Lidocaine 2% PF * 5 ML VIAL ONE ×2 (11:24→11:36)
[2018-09-04] MEDS ORDERED: Midazolam* 1 MG/ML 5 ML VIAL (5 MG) ONE (11:36)
[2018-09-04] MEDS ORDERED: KETAMINE HCL* 50 MG/ML 10 ML VIAL ONE (11:36)
[2018-09-04] MEDS ORDERED: Succinylcholine* 20 MG/ML 10 ML VIAL ONE (11:36)
[2018-09-04] MEDS ORDERED: Dexamethasone TAB* 4 MG ONE (11:39)
[2018-09-04] MEDS ORDERED: Ondansetron ODT TAB* 4 MG ONE (11:39)
[2018-09-04] MEDS ORDERED: Famotidine IV* 10 MG/ML 2 ML (20 mg) ONE (11:39)
[2018-09-04] MEDS ORDERED: Lactated Ringers 1000 ML Bag* 1,000 ML IV SCH (12:00)
[2018-09-04] MEDS ORDERED: Bupivacaine 0.25% SDV PF* 10 ML VIAL INJ ONE (12:13)
[2018-09-04] MEDS ORDERED: Dexamethasone IV* 4 MG/ML 1 ML (4 MG) ONE (13:18)
[2018-09-04] MEDS ORDERED: Ondansetron INJ* 2 MG/ML VIAL ONE (13:18)
[2018-09-04] MEDS ORDERED: Ketorolac INJ* 30 MG/ML 1 ML VIAL ONE (13:18)
[2018-09-04] MEDS ORDERED: oxyCODONE TAB* 5 MG TAB PO PRN (13:52)
[2018-09-04] MEDS ORDERED: DiMENhydriNATE IV* 50 MG/ML VIAL IV PUSH PRN (13:52)
[2018-09-04] MEDS ORDERED: Sugammadex * 500 MG/5 ML VIAL IV PUSH ONE (13:52)
[2018-09-04] MEDS ORDERED: Naloxone* 0.4 MG/ML 1 ML VIAL IV PRN (13:52)
[2018-09-04] MEDS ORDERED: Labetalol IV* 5 MG/ML 20 ML VIAL ONE (14:11)
--- NOTE | 2018-09-04 14:20 | OP ---
Operative Report - Blank - Operative Report Date of Operation: 09/04/18 Note: Brief Operative Note Preoperative Dx: sigmoid volvulus Postoperative Dx: sigmoid volvulus Procedure: sigmoid colectomy Anesthesia: GET Surgeon: Nanette Assist: Erich Miller EBL: 5mL Specimen: sigmoid colon Fluids: 600mL LR Drains: none Findings: dictated
[2018-09-04] MEDS ORDERED: Acetaminophen IV 1GM/100ML * 100 ML ONE (14:26)
[2018-09-04] MEDS ORDERED: hydrALAZINE IV* 20 MG/ML VIAL ONE (14:28)
[2018-09-04] MEDS: fentaNYL* 50 MCG/ML 2 ML VIAL (100 MCG VIAL) IV PRN ×2 (14:58→15:10)
[2018-09-04] MEDS ORDERED: HYDROmorphone INJ1* 1 MG/ML SYRINGE ONE (16:50)
[2018-09-04] MEDS: Lactated Ringers 1000 ML Bag* 1,000 ML IV SCH (17:00)
[2018-09-04] MEDS ORDERED: Ondansetron INJ* 2 MG/ML VIAL IV PRN (17:04)
[2018-09-04] MEDS: HYDROmorphone INJ1* 1 MG/ML SYRINGE IV SLOW PU PRN (19:13)
--- NOTE | 2018-09-04 20:44 | OP ---
DATE OF OPERATION: 09/04/18 - ROOM #336 DATE OF : 55 ATTENDING SURGEON: Ehsan Fitzpatrick MD [employer] MECHANIC: Dr. Mahendra Miller. PRE-OP DIAGNOSIS: Sigmoid volvulus. POST-OP DIAGNOSIS: Sigmoid volvulus. OPERATIVE PROCEDURE: Open sigmoid colectomy. INDICATIONS FOR PROCEDURE: Sigmoid volvulus. Risks of surgery included, but not limited to bleeding, infection, anastomotic leak, injury to intraabdominal contents including the bowel, others were discussed with the patient, who seemed to understand and agreed to the procedure and all questions were answered. DESCRIPTION OF PROCEDURE: The patient was taken to the operating room, placed supine. Preoperative antibiotics have been given. After the successful induction of general endotracheal anesthesia, the abdomen was prepped and draped in sterile fashion. Time-out was performed indicating correct patient, correct procedure. Initial consideration was for lap-assisted colectomy and the decision was made for hand port, 6.5 cm length in the midline, carried down to the subcutaneous tissue using Bovie cautery. The fascia was opened and the peritoneal cavity was entered. The patient was quite thin and it became immediately apparent that I was able to bring the entire long sigmoid colon/ volvulized segment out through this incision and therefore laparoscopic surgery was not needed. Through this small incision, the proximal and distal points were chosen where the [id number] anastomosis will easily be performed. A mesentry was then taken using the LigaSure device. Once this was complete, a [id number] functional and end-to-end anastomosis was performed using a linear 80-mm stapler and a 90 TA stapler to close the initial enterotomies. The mesentry was closed with a running 3-0 silk suture. The lower abdomen was irrigated with warm saline and aspirated. Cecum, small bowel, descending colon , as to the distal sigmoid and rectum all appeared normal. Good pulses were noted in the mesentry of the proximal and distal bowel, which was anastomosed. The omentum was placed over the anastomosis. The fascia was closed with a running #1 PDS suture. The wound was irrigated. The skin was closed with Monocryl and glue was applied. Initially, a small right lower quadrant incision was also made to place a port, however, only a skin incision was made, and no port was placed through this incision due to the above mentioned redundant colon. The patient tolerated the procedure well. He was extubated and taken to Recovery in stable condition. [id number]/CPS #: [id number] MTDD
[2018-09-05] MEDS: Lactated Ringers 1000 ML Bag* 1,000 ML IV SCH ×4 (00:36→18:03)
[2018-09-05] MEDS: HYDROmorphone INJ1* 1 MG/ML SYRINGE IV SLOW PU PRN ×4 (04:35→21:09)
[2018-09-05 06:54] LABS: BUN/Creatinine Ratio 18.4 (8-20); Calcium 8.6 mg/dL (8.6-10.3); EGFR African American 125.8 (>60); EGFR Non-African American 103.9 (>60); Potassium 4.3 mmol/L (3.5-5.0)
--- NOTE | 2018-09-05 08:27 | PN ---
Subjective - Subjective Reason for Note: Progress Note History: Day 1 post-sigmoid colon resection/end to end anastamosis. He has pain in the incision site, but is otherwise doing well. He has no nausea or vomiting. He denies chest pain, dyspnea, palpitations, cough, sputum, fever, sweats, dysuria. His main concern is his pain. Active Problems: Active Problems Status post colectomy (Acute) Z90.49 DVT prophylaxis (Chronic) Z29.9 - SCDs Depression (Chronic) F32.9 - Continue sertraline. Full code status (Chronic) Z78.9 Parkinson disease (Chronic) G20 - Continue carbidopa-levodopa, benztropine, and amantadine. Pre-diabetes (Chronic) R73.03 - Hold metformin. Risk for falls (Chronic) Z91.81 Schizophrenia (Chronic) F20.9 - Continue prolixin. Tardive dyskinesia (Chronic) G24.01 Current Medications: Current Medications Acetaminophen (Tylenol Tab*) 650 mg PO Q4H PRN PRN Reason: PAIN - MODERATE TO SEVERE Amantadine HCl (Symmetrel Cap*) 100 mg PO DAILY [facility] Last Admin: 09/04/18 08:08 Dose: 100 mg Benztropine Mesylate (Cogentin Tab*) 1 mg PO QID PRN PRN Reason: AGITATION Carbidopa/Levodopa (Sinemet 25/100 Tab(*)) 0.5 tab PO TID [facility] Last Admin: 09/04/18 19:08 Dose: 0.5 tab Famotidine (Pepcid Tab*) 20 mg PO DAILY [facility] Fluphenazine HCl (Prolixin Tab*) 10 mg PO DAILY [facility] Last Admin: 09/04/18 08:08 Dose: 10 mg Hydromorphone HCl (Dilaudid Inj1s*) 0.5 mg IV SLOW PU Q2H PRN PRN Reason: PAIN Last Admin: 09/05/18 08:02 Dose: 0.5 mg Lactated Ringer's (Lactated Ringers 1000 Ml Bag*) 1,000 mls @ 125 mls/hr IV PER RATE [facility] Last Admin: 09/05/18 08:04 Dose: 125 mls/hr Lorazepam (Ativan Tab(*)) 1 mg PO TID PRN PRN Reason: ANXIETY Last Admin: 09/04/18 01:26 Dose: 1 mg Ondansetron HCl (Zofran Inj*) 4 mg IV Q6H PRN PRN Reason: NAUSEA Sertraline HCl (Zoloft*) 150 mg PO DAILY [facility] Last Admin: 09/04/18 08:08 Dose: 150 mg Home Medications: Home Medications Medication Instructions Recorded Confirmed Type Benztropine TAB* [Cogentin TAB*] 1 mg PO QID PRN 12/18/12 09/01/18 History LORazepam TAB(*) [Ativan TAB(*)] 1 mg PO QID PRN 12/18/12 09/01/18 History Amantadine CAP* [Symmetrel CAP*] 100 mg PO DAILY 08/31/18 09/01/18 History Carbidopa/Levodop 25/100 MG(*) 0.5 tab PO TID 08/31/18 09/01/18 History [Sinemet 25/100 TAB(*)] QUEtiapine TAB* [Seroquel 25 MG 25 mg PO Q2HR PRN 08/31/18 09/01/18 History TAB*] Sertraline* [Zoloft*] 150 mg PO DAILY 08/31/18 09/01/18 History metFORMIN* [Glucophage 500 MG TAB 250 mg PO QPM 08/31/18 09/01/18 History *] fluPHENAZine HCL TAB* [Prolixin 10 mg PO DAILY 09/01/18 09/01/18 History TAB*] Allergies: Allergies Allergy/AdvReac Type Severity Reaction Status Date / Time No Known Allergies Allergy Verified 08/31/18 14:30 Objective - Vital Signs Vital Signs: Vital Signs 09/04/18 09/04/18 09/04/18 08:22 09:28 10:38 Temperature 98.3 F 97.4 F 97.4 F Pulse Rate 72 72 77 Respiratory 20 20 20 Rate Blood Pressure 148/95 151/88 153/92 (mmHg) O2 Sat by Pulse 99 96 96 Oximetry 09/04/18 09/04/18 09/04/18 14:24 14:25 14:27 Temperature 97.7 F Pulse Rate 62 64 Respiratory 18 17 16 Rate Blood Pressure 196/116 188/114 (mmHg) O2 Sat by Pulse 99 100 Oximetry 09/04/18 09/04/18 09/04/18 14:30 14:36 14:41 Temperature Pulse Rate 62 66 72 Respiratory 18 20 23 Rate Blood Pressure 197/107 163/95 160/89 (mmHg) O2 Sat by Pulse 100 100 100 Oximetry 09/04/18 09/04/18 09/04/18 14:45 14:50 14:58 Temperature Pulse Rate 66 68 Respiratory 19 21 16 Rate Blood Pressure 150/86 152/91 (mmHg) O2 Sat by Pulse 100 100 Oximetry 09/04/18 09/04/18 09/04/18 15:00 15:10 15:15 Temperature Pulse Rate 73 64 Respiratory 23 16 12 Rate Blood Pressure 138/83 119/77 (mmHg) O2 Sat by Pulse 100 100 Oximetry 09/04/18 09/04/18 09/04/18 15:30 15:57 16:31 Temperature 97.7 F Pulse Rate 69 78 Respiratory 14 16 16 Rate Blood Pressure 138/83 134/88 (mmHg) O2 Sat by Pulse 99 95 Oximetry 09/04/18 09/04/18 09/04/18 16:40 16:59 17:02 Temperature 98.4 F Pulse Rate 70 Respiratory 16 16 16 Rate Blood Pressure 147/77 (mmHg) O2 Sat by Pulse 100 Oximetry 09/04/18 09/04/18 09/04/18 17:53 18:19 19:13 Temperature 98.9 F Pulse Rate 83 Respiratory 16 16 18 Rate Blood Pressure 137/79 (mmHg) O2 Sat by Pulse 98 Oximetry 09/04/18 09/04/18 09/04/18 19:19 20:10 20:13 Temperature 99.2 F Pulse Rate 89 Respiratory 18 12 16 Rate Blood Pressure 125/73 (mmHg) O2 Sat by Pulse 97 Oximetry 09/04/18 09/04/18 09/05/18 21:55 23:53 03:20 Temperature 98.3 F 98.7 F 97.9 F Pulse Rate 83 79 65 Respiratory 16 14 14 Rate Blood Pressure 124/75 124/75 128/71 (mmHg) O2 Sat by Pulse 94 94 97 Oximetry 09/05/18 09/05/18 09/05/18 04:35 05:02 05:35 Temperature Pulse Rate Respiratory 20 18 Rate Blood Pressure (mmHg) O2 Sat by Pulse 97 Oximetry 09/05/18 09/05/18 07:58 08:02 Temperature 97.9 F Pulse Rate 77 Respiratory 18 18 Rate Blood Pressure 151/84 (mmHg) O2 Sat by Pulse 99 Oximetry - Intake and Output Intake and Output: Intake & Output 09/02/18 09/03/18 09/04/18 09/05/18 11:59 11:59 11:59 11:59 Intake Total 3365 1980 4794 3789 Output Total 850 3550 2695 1100 Balance 4975 -8260 6063 6279 Intake: IV Fluids 998 534 0036 FLUIDS 844 LR 675 3609 Oral 2690 1980 3950 180 Output: Urine 850 3550 2695 1100 Other: Estimated Void Large Large Small Large # Bowel Movements 4 0 Estimated Stool Amount Large Large # Voids 1 1 3 3 ADLs: Meal Record Start: 09/01/18 03: 40 Freq: DAILY@0900,1400,1800 Status: Complete Protocol: Created 09/01/18 03:40 System (Rec: 09/01/18 03:40 System TELE-C09) Document 09/01/18 09:00 [id number] (Rec: 09/01/18 09:17 [id number] TELE-C03) Document 09/01/18 13:32 [id number] (Rec: 09/01/18 13:33 [id number] TELE-C08) Document 09/01/18 18:00 [id number] (Rec: 09/01/18 18:23 [id number] TELE-C07) Document 09/02/18 09:00 [id number] (Rec: 09/02/18 09:32 [id number] TELE-C08) Document 09/02/18 14:00 [id number] (Rec: 09/02/18 15:35 [id number] MED-C09) Document 09/02/18 18:00 [id number] (Rec: 09/02/18 18:42 [id number] MED-C11) Document 09/03/18 09:00 [id number] (Rec: 09/03/18 18:28 [id number] MED-C11) Document 09/03/18 14:00 [id number] (Rec: 09/03/18 18:30 VRV5577 MED-C11) Document 09/03/18 18:00 HMZ9071 (Rec: 09/03/18 18:53 MFA1702 MED-C11) Document 09/04/18 09:00 [id number] (Rec: 09/04/18 10:27 [id number] MED-C09) ADLs: Meal Record Start: 09/04/18 15: 41 Freq: Status: Active Protocol: Created 09/04/18 15:41 [id number] (Rec: 09/04/18 15:41 [id number] SSU-M06) Intake and Output Start: 08/31/18 14: 29 Freq: Status: Active Protocol: Created 08/31/18 14:29 System (Rec: 08/31/18 14:29 System ED-C24) Intake and Output Start: 09/01/18 03: 40 Freq: DAILY@0600,1400,2200 Status: Complete Protocol: Created 09/01/18 03:40 System (Rec: 09/01/18 03:40 System TELE-C09) Document 09/01/18 06:00 [id number] (Rec: 09/01/18 06:43 [id number] TELE-C34) Document 09/01/18 10:41 [id number] (Rec: 09/01/18 10:41 [id number] TELE-C02) Document 09/01/18 13:40 [id number] (Rec: 09/01/18 13:40 [id number] TELE-C08) Document 09/01/18 21:58 [id number] (Rec: 09/01/18 21:59 EYC5795 TELE-C08) Document 09/02/18 02:59 [id number] (Rec: 09/02/18 02:59 PPC2573 TELE-C09) Document 09/02/18 04:38 [id number] (Rec: 09/02/18 04:38 QZH1616 TELE-C09) Document 09/02/18 05:45 [id number] (Rec: 09/02/18 05:45 [id number] TELE-C09) Document 09/02/18 06:06 AFL5525 (Rec: 09/02/18 06:06 LGL5841 TELE-C09) Document 09/02/18 14:00 [id number] (Rec: 09/02/18 15:35 FAG5625 MED-C09) Document 09/02/18 22:00 [id number] (Rec: 09/02/18 22:03 UVQ0655 MED-C07) Document 09/03/18 06:00 PBV8858 (Rec: 09/03/18 06:10 EOC9746 MED-C07) Document 09/03/18 14:00 [id number] (Rec: 09/03/18 18:34 [id number] MED-C11) Document 09/03/18 20:59 ELA4350 (Rec: 09/03/18 20:59 [id number] MED-C04) Document 09/03/18 22:00 [id number] (Rec: 09/03/18 22:38 IZS8217 MED-C02) Document 09/03/18 23:06 SEI6300 (Rec: 09/03/18 23:06 UXU2420 MED-M16) Document 09/04/18 05:57 [id number] (Rec: 09/04/18 05:58 SVU1807 MED-C02) Document 09/04/18 11:47 [id number] (Rec: 09/04/18 11:47 WTI4759 MED-M21) Intake and Output Start: 09/04/18 15: 41 Freq: DAILY@0600,1400,2200 Status: Active Protocol: Created 09/04/18 15:41 [id number] (Rec: 09/04/18 15:41 TFG1520 SSU-M06) Document 09/04/18 18:52 KQM2755 (Rec: 09/04/18 18:52 LPM0544 SSU-M15) Document 09/04/18 22:06 [id number] (Rec: 09/04/18 22:07 BGI2029 SSU-M18) Document 09/05/18 05:29 [id number] (Rec: 09/05/18 05:30 [id number] SSU-C03) - Physical Exam General Physical Exam Comment: He has his usual signs of Parkinson's disease and tardive dyskinesia General: No Cyanosis, No Anemia, No Jaundice, No Clubbing Lungs and Chest: Yes: Chest Expansion Full, Chest Expansion Symetrica, Vessicular Breath Sounds. No: Crackles, Wheezes Heart Rate and Rhythm: Regular Additional Cardiovascular: Yes: Normal Heart Sounds. No: Heart Murmur, Pedal Edema Abdominal Exam: Yes: Soft, Bowel Sounds Present, Other - Elegent glued incision. No: Distention, Abdominal Mass Results - Results Lab Results: Laboratory Results - last 24 hr 09/04/18 09/05/18 09:36 05:58 Sodium 131 L Potassium 4.3 Chloride 97 L Carbon Dioxide 29 Anion Gap 5 BUN 14 Creatinine 0.76 Est GFR ( Amer) 125.8 Est GFR (Non-Af Amer) 103.9 BUN/Creatinine Ratio 18.4 Glucose 111 H Calcium 8.6 Troponin I 0.00 Assessment - Problem List Assessment: Patient Problems Status post colectomy (Acute) DVT prophylaxis (Chronic) Depression (Chronic) Full code status (Chronic) Parkinson disease (Chronic) Pre-diabetes (Chronic) Risk for falls (Chronic) Schizophrenia (Chronic) Tardive dyskinesia (Chronic) Plan: Status post colectomy (Acute) Day 1 post sigmoid colectomy - he tolerated the surgery well. He is able to take sips of water. His labs are all on target. The surgical team are managing this. secondary diagnoses DVT prophylaxis (Chronic) Depression (Chronic) Full code status (Chronic) Parkinson disease (Chronic) Pre-diabetes (Chronic) Risk for falls (Chronic) Schizophrenia (Chronic) Tardive dyskinesia (Chronic) He will resume his usual medication. Given his comorbidities, he will require OT/PT to mobilize. I explained the above to the patient. I spoke to Noemí Rolle () and bought her up to date.
[2018-09-05] MEDS: Famotidine TAB* 20 MG PO SCH (08:38)
[2018-09-05] MEDS: Sertraline* 100 MG TAB PO SCH (08:38)
[2018-09-05] MEDS: Carbidopa/Levodop 25/100 MG TAB(*) PO SCH ×3 (08:38→21:08)
[2018-09-05] MEDS: Amantadine CAP* 100 MG PO SCH (08:39)
[2018-09-05] MEDS: fluPHENAZine HCL TAB* 5 MG PO SCH (08:39)
[2018-09-05] MEDS: LORazepam TAB(*) 1 MG PO PRN ×2 (11:04→18:05)
[2018-09-05] MEDS ORDERED: HYDROmorphone INJ1* 1 MG/ML SYRINGE IV SLOW PU PRN (11:25)
--- NOTE | 2018-09-05 11:34 | PN ---
Progress Note - Progress Note Date of Service: 09/05/18 SOAP: Subjective: [] no complaints, no flatus Objective: [] Temp Pulse Resp BP Pulse Ox 97.9 F 77 16 151/84 99 09/05/18 07:58 09/05/18 07:58 09/05/18 11:04 09/05/18 07:58 09/05/18 08:00 Laboratory Last Values WBC 5.1 10^3/uL (3.5-10.8) 09/04/18 05:54 RBC 4.24 10^6 /uL (4.18-5.48) 09/04/18 05:54 Hgb 14.0 g/dL (14.0-18.0) 09/04/18 05:54 Hct 39 % (42-52) L 09/04/18 05:54 MCV 93 fL (80-94) 09/04/18 05:54 MCH 33 pg (27-31) H 09/04/18 05:54 MCHC 36 g/dL (31-36) 09/04/18 05:54 RDW 14 % (10-15) 09/04/18 05:54 Plt Count 189 10^3/uL (150-450) 09/04/18 05:54 MPV 6.4 fL (7.4-10.4) L 09/04/18 05:54 Neut % (Auto) 64.3 % 09/04/18 05:54 Lymph % (Auto) 23.6 % 09/04/18 05:54 [place] % (Auto) 7.2 % 09/04/18 05:54 Eos % (Auto) 4.2 % 09/04/18 05:54 Baso % (Auto) 0.7 % 09/04/18 05:54 Absolute Neuts (auto) 3.3 10^3/ul (1.5-7.7) 09/04/18 05:54 Absolute Lymphs (auto) 1.2 10^3/ul (1.0-4.8) 09/04/18 05:54 Absolute Monos (auto) 0.4 10^3/ul (0-0.8) 09/04/18 05:54 Absolute Eos (auto) 0.2 10^3/ul (0-0.6) 09/04/18 05:54 Absolute Basos (auto) 0.0 10^3/ul (0-0.2) 09/04/18 05:54 Absolute Nucleated RBC 0.0 10^3/ul 09/04/18 05:54 Nucleated RBC % 0.0 09/04/18 05:54 Sodium 131 mmol/L (135-145) L 09/05/18 05:58 Potassium 4.3 mmol/L (3.5-5.0) 09/05/18 05:58 Chloride 97 mmol/L (101-111) L 09/05/18 05:58 Carbon Dioxide 29 mmol/L (22-32) 09/05/18 05:58 Anion Gap 5 mmol/L (2-11) 09/05/18 05:58 BUN 14 mg/dL (6-24) 09/05/18 05:58 Creatinine 0.76 mg/dL (0.67-1.17) 09/05/18 05:58 Est GFR ( Amer) 125.8 (>60) 09/05/18 05:58 Est GFR (Non-Af Amer) 103.9 (>60) 09/05/18 05:58 BUN/Creatinine Ratio 18.4 (8-20) 09/05/18 05:58 Glucose 111 mg/dL (70-100) H 09/05/18 05:58 Calcium 8.6 mg/dL (8.6-10.3) 09/05/18 05:58 Phosphorus 2.8 mg/dL (2.5-5.0) 09/01/18 05:22 Magnesium 2.3 mg/dL (1.9-2.7) 09/01/18 05:22 Total Bilirubin 1.10 mg/dL (0.2-1.0) H 09/02/18 04:56 Direct Bilirubin 0.20 mg/dL (0.03-0.18) H 09/02/18 04:56 Indirect Bilirubin 0.9 mg/dL (0.3-1.0) 09/02/18 04:56 AST 34 U/L (13-39) 09/02/18 04:56 ALT 20 U/L (7-52) 09/02/18 04:56 Alkaline Phosphatase 58 U/L (34-104) 09/02/18 04:56 Troponin I 0.00 ng/mL (<0.04) 09/04/18 09:36 C-Reactive Protein 9.25 mg/L (<8.01) H 09/04/18 05:54 Total Protein 5.5 g/dL (6.4-8.9) L 09/02/18 04:56 Albumin 3.4 g/dL (3.2-5.2) 09/02/18 04:56 Globulin 2.1 g/dL (2-4) 09/02/18 04:56 Albumin/Globulin Ratio 1.6 (1-3) 09/02/18 04:56 Urine Color Priyanka 08/31/18 21:36 Urine Appearance Clear 08/31/18 21:36 Urine pH 5.0 (5-9) 08/31/18 21:36 Ur Specific [place] > 1.060 (1.010-1.030) H 08/31/18 21:36 Urine Protein Negative (Negative) 08/31/18 21:36 Urine Ketones Negative (Negative) 08/31/18 21:36 Urine Blood Negative (Negative) 08/31/18 21:36 Urine Nitrate Negative (Negative) 08/31/18 21:36 Urine Bilirubin Negative (Negative) 08/31/18 21:36 Urine Urobilinogen Negative (Negative) 08/31/18 21:36 Ur Leukocyte Esterase Negative (Negative) 08/31/18 21:36 Urine Glucose Negative (Negative) 08/31/18 21:36 Blood Type O Positive 09/03/18 08:34 Antibody Screen Negative 09/03/18 08:34 incision cdi, abdomen soft nd Assessment: []stable Plan: []clear liquiuds, await full return bowel fxn increase activity
[2018-09-06] MEDS: LORazepam TAB(*) 1 MG PO PRN ×3 (03:42→23:12)
[2018-09-06] MEDS: HYDROmorphone INJ1* 1 MG/ML SYRINGE IV SLOW PU PRN ×2 (03:42→10:45)
[2018-09-06] MEDS: Lactated Ringers 1000 ML Bag* 1,000 ML IV SCH ×2 (03:46→14:14)
--- NOTE | 2018-09-06 05:30 | PN ---
Progress Note - Progress Note Date of Service: 09/06/18 SOAP: Subjective: [] no discomfort, small dark blood clot per rectum this am Objective: []soft , benign abdomen, incision CDI Assessment: []stable, small amount blood likely from anastomosis Plan: []cont clears, await full return bowel fxn
[2018-09-06] MEDS: Sertraline* 100 MG TAB PO SCH (08:59)
[2018-09-06] MEDS: Amantadine CAP* 100 MG PO SCH (09:00)
[2018-09-06] MEDS: fluPHENAZine HCL TAB* 5 MG PO SCH (09:01)
[2018-09-06] MEDS: Famotidine TAB* 20 MG PO SCH (09:01)
[2018-09-06] MEDS: Carbidopa/Levodop 25/100 MG TAB(*) PO SCH ×3 (09:01→20:53)
[2018-09-07] MEDS: Lactated Ringers 1000 ML Bag* 1,000 ML IV SCH (00:24)
[2018-09-07] MEDS: HYDROmorphone INJ1* 1 MG/ML SYRINGE IV SLOW PU PRN (03:50)
[2018-09-07 08:08] VITALS: BP 126/78
[2018-09-07] MEDS: Amantadine CAP* 100 MG PO SCH (09:25)
[2018-09-07] MEDS: LORazepam TAB(*) 1 MG PO PRN (09:25)
[2018-09-07] MEDS: Famotidine TAB* 20 MG PO SCH (09:26)
[2018-09-07] MEDS: fluPHENAZine HCL TAB* 5 MG PO SCH (09:26)
[2018-09-07] MEDS: Carbidopa/Levodop 25/100 MG TAB(*) PO SCH (09:26)
[2018-09-07] MEDS: Sertraline* 100 MG TAB PO SCH (09:27)
[2018-09-07] MEDS ORDERED: Polyethylene Glycol 3350* 17 GM PACKET PO SCH (10:30)
--- NOTE | 2018-09-07 12:40 | DS ---
AMENDED REPORT NOW INCLUDES DESIGNATED COSIGNER CC: [facility], Dr. Carr; Dr. Derrick Busch * DISCHARGE SUMMARY: DATE OF ADMISSION: 08/31/18 DATE OF DISCHARGE TO [facility]: 09/07/18 ATTENDING SURGEON: Dr. Ehsan Fitzpatrick.* (DICTATED BY BIJU MULLIGAN NP) HOSPITAL COURSE: The patient is a 62-year-old male with a past medical history of longstanding Parkinson's, tardive dyskinesia, schizophrenia, and prediabetes. He presented to the emergency room on 08/31/18 with constipation, nausea, and abdominal pain. He had a CAT scan of the abdomen and pelvis, which was suspicious for sigmoid volvulus. He underwent sigmoidoscopy by Dr. Job Ponce with partial success at reversing his volvulus, along with over 1 L of liquid stools suctioned off. He had persistent dilatation of the colon and, therefore, Dr. Fitzpatrick discussed the benefits of an open sigmoid colectomy to prevent the risk of retorsion. The patient was taken to the operating room by Dr. Fitzpatrick on 09/04/18 and underwent open sigmoid colectomy. He has done well postoperatively, tolerating a clear liquid diet, and is passing flatus. He passed a small amount of blood clot per rectum, but has not had a bowel movement yet. He has been ambulating with assistance and the use of a walker and has been using his Inspiron. He was seen by myself this morning and met the criteria for discharge to [facility]. PHYSICAL EXAMINATION: General: Well appearing, in no acute distress. Vital signs are stable. Temperature 97.7, blood pressure 102/60, pulse rate 80, respiratory rate 18, O2 saturation on room air 98%. Lungs: Breath sounds bilaterally clear and equal. Heart: Regular rate and rhythm. No murmurs or rubs appreciated. Abdomen: Active bowel sounds. Softly distended. Minimally tender. The midline incision is intact with skin glue and is surrounded by resolving ecchymosis. A laparoscopic port site, right lower abdomen, is intact with skin glue and is also surrounded by ecchymosis, but there are no signs of infection. Extremities: Nontender calves and no edema. Skin is warm and dry. CONDITION: Stable. IMPRESSION: Postop day #3, status post open sigmoid colectomy by Dr. Fitzpatrick. The patient is doing well and has met the criteria for discharge to [facility]. PLAN: Increase diet to soft as tolerated. Activity as recommended by PMRU. Continue incentive spirometry. Discontinue hydromorphone. Add a stool softener to his medication regimen. Dr. Carr was updated and Dr. Fitzpatrick will also be updated, and I will discuss with him Dr. Carr's request to put the patient on subcutaneous heparin. The patient was updated with the plan and agrees. BIJU MULLIGAN, FU[employer] CE[employer] ASSEMBLER [id number]/CPS #: [id number] OTIS
== END 2018-09-07 10:20 | DRG 331 ==
LOC: ED 14:10 → MEDTELE 09-01 01:19 → MED 09-02 10:39 → SSU 09-04 16:00
PROVIDERS: ADMIT Internal Medicine; ATTEND Surgery
PROC: 0D9N8ZZ Drainage of Sigmoid Colon, Via Natural or Artificial Opening Endoscopic (ICD-10-PCS; 2018-08-31)
PROC: 0DTN0ZZ Resection of Sigmoid Colon, Open Approach (ICD-10-PCS; principal; 2018-09-04 10:30)
DX: K56.2 Volvulus (principal); E11.9 Type 2 diabetes mellitus without complications; F20.9 Schizophrenia, unspecified; G20 Parkinson's disease; K59.00 Constipation, unspecified; G24.01 Drug induced subacute dyskinesia; F32.9 Major depressive disorder, single episode, unspecified; W18.30XA Fall on same level, unspecified, initial encounter; Y92.239 Unspecified place in hospital as the place of occurrence of the external cause; Z80.0 Family history of malignant neoplasm of digestive organs; Z80.8 Family history of malignant neoplasm of other organs or systems; Z83.3 Family history of diabetes mellitus
CPT/HCPCS: 36415; 70450; 71046; 74019; 74177; 80048; 80053; 80076; 81003; 83735; 84100; 84484; 85025; 86140; 86850; 86900; 86901; 88307; 93005; 99156; 99157; 99285; A9270-GY; G8987-GO-CJ; G8988-GO-CI; J0330; J0360; J1100; J1170; J1335; J1885; J2250; J2270; J2405; J2704; J3010; J3480; J3490; J8540; Q9967

== ENCOUNTER 2018-09-07 08:58 | Inpatient (IN) | payer MEDICARE, OTHER ==
[2018-09-07] MEDS ORDERED: Acetaminophen TAB* 325 MG PO PRN (10:26)
[2018-09-07] MEDS ORDERED: oxyCODONE/Acetamin 5/325 MG* TAB PO PRN (10:48)
--- NOTE | 2018-09-07 11:20 | PN ---
Progress Note - Progress Note Date of Service: 09/07/18 SOAP: Subjective:no abd pain,hungry,passing small amts flatus,no stool yet [] Objective: Vital Signs Temp 97.7 F 09/07/18 10:35 Pulse 82 09/07/18 10:35 Resp 18 09/07/18 10:35 BP 102/60 09/07/18 10:35 Pulse Ox 98 09/07/18 10:35 lungs:clear bilat:heart:RRR;abd:+bs,softly distended;incisions intact with skin glue and are surrounded by ecchymosis,no infection;ext:no edema,nontender calves [] Assessment:POD#3 s/p open sigmoid colectomy for volvulous;doing well; transferred to [facility] today [] Plan:increase to soft diet as tolerated add stool softener d/c hydromorphone continue inspiron activity as recommended by PMRU Dr Ruiz updated patient agrees with plan []
--- NOTE | 2018-09-07 13:13 | HP ---
CC: Dr. Busch; Dr. Horton; Dr. Fitzpatrick REHABILITATION ADMISSION: DATE OF ADMISSION: 09/07/18 PRIMARY CARE PROVIDER: Dr. Busch. NEUROLOGIST: Dr. Horton. SURGEON: Dr. Fitzpatrick. REASON FOR ADMISSION: Parkinson's disease exacerbation after sigmoid volvulus and sigmoid collectomy. HISTORY OF PRESENT ILLNESS: This is a 62-year-old man with Parkinson's disease , tardive dyskinesia, and schizophrenia, who was admitted on 08/31/18 with abdominal pain and cramping for 5 days. Imaging was concerning for volvulus. He was seen by Dr. Cobb in Gastroenterology and had a sigmoidoscopy urgently with some improvement and stool motion overnight. Ultimately, a rectal tube was placed and he was put on clear liquid diet with laxatives. Due to the high incidence of recurrent volvulus, Surgery was consulted. On the morning of 09/04/18, he got out of bed on his own and fell backwards and hit his head and his left elbow. CT of the head was negative as was x-ray of the left elbow. That day, he was later taken to the OR by Dr. Fitzpatrick for laparoscopic assisted sigmoid colectomy with primary anastomosis. On 09/06/18, he had some blood clots passed per rectum. They were felt likely secondary to the anastomosis. He continued on a clear diet. He has not had any further blood or stool passed. He is passing some flatus. Prior to admission, he was independent with mobility and not using any assistive devices. He was able to take care of himself. With physical therapy, he has required supervision for bed mobility, and a minimal amount of assistance for transferring and ambulating up to 80 feet with the rolling walker. With occupational therapy, he has required min assist of 2 for dressing, bathing and toileting. He has required intermittent use of Dilaudid IV for pain management, but is able to start using Percocet today. He has not slept well since admission and usually take 75mg of seroquel at home. PAST MEDICAL HISTORY: 1. Schizophrenia. 2. Tardive dyskinesia. 3. Parkinson's disease, followed by Dr. Horton. 4. Prediabetes mellitus. 5. History of hernia surgery. 6. History of lower esophageal sphincter surgery. 7. Status post sigmoid collectomy, see history of present illness. MEDICATIONS: 1. Cogentin 1 mg 4 times a day p.r.n. agitation. 2. Ativan 1 mg t.i.d. p.r.n. anxiety. 3. Amantadine 100 mg daily. 4. Sinemet 25/100 0.5 tablets t.i.d. 5. Zoloft 150 mg daily. 6. Seroquel 75 mg q.h.s. has been on hold but will be restarted. 7. Metformin 250 mg daily has been on hold. 8. Fluphenazine 10 mg daily. 9. Tylenol p.r.n. 10. Famotidine 20 mg daily. 11. Percocet 1 tablet q.6 hours p.r.n. moderate to severe pain. 12. Tylenol p.r.n. mild pain. ALLERGIES: No known drug allergies. FAMILY HISTORY: Mother had throat cancer. SOCIAL HISTORY: He lives in [place] with his in a 1 level apartment with 10 steps to enter. If he cannot make decisions for himself, his , Noemí Rolle is his healthcare proxy. No smoking. Rare alcohol. 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 He has remained active despite his Parkinson's disease and was doing boxing with [employer] as well as going to the gym regularly. REVIEW OF SYSTEMS: See history of present illness and past medical history. Surgery has allowed him to advance to a soft diet. He has not had a bowel movement yet. The patient acknowledges over time noticing difficulty with word retrieval and memory. Remainder of the 13-system review was completed. No significant findings. PHYSICAL EXAMINATION GENERAL: Well-developed, well-nourished, appearing stated age. VITAL SIGNS: Temperature 97.7, pulse 82, respirations 18, oxygenation 98% on room air, blood pressure 102/60. MENTAL STATUS: No acute distress. Alert and appropriate. HEENT: Normocephalic, atraumatic. Oropharynx is clear. Moist mucous membranes. LUNGS: Clear to auscultation bilaterally. HEART: Regular rate and rhythm. ABDOMEN: Active bowel sounds. Soft. Slightly distended. Mild tenderness in the right lower quadrant but no peritoneal signs. His surgical sites are clean , dry, and intact. There is some ecchymosis around the large central incision below his umbilicus. The incision is glued. EXTREMITIES: No clubbing, cyanosis, or edema. NEUROLOGIC EXAM: He has resting tremor in all 4 extremities and masked facies. Cranial nerves II through XII are intact. Manual muscle testing shows motor strength as 5/5 in bilateral upper and lower extremities. He has normal sensation in all 4 extremities. MUSCULOSKELETAL EXAM: He has functional range of motion in all of his major joints. There is cogwheel rigidity. IMPRESSION: A 62-year-old man with Parkinson's disease exacerbation in the setting of sigmoid volvulus status post sigmoid collectomy with primary anastomosis. He will be admitted to [facility], so he can return to independent living. PLAN: 1. Status post sigmoid volvulus and sigmoid collectomy with primary anastomosis. He is to follow up with Dr. Fitzpatrick. He has a 10 to 15 pound lifting restriction for 3 weeks. He will use Percocet 1 tablet q.6 hours p.r.n. moderate to severe pain and Tylenol 650 mg q.6 hours p.r.n. mild pain. 2. Parkinson's disease. Continue with Sinemet and amantadine. 3. Schizophrenia. Continue with Cogentin for agitation. Ativan for anxiety, Zoloft, fluphanzine and restart Seroquel. 4. Prediabetes. He has been off of his metformin and he has only been on the clear diet. I will order consistent carbohydrate soft diet. When he seems to be eating regularly, we can evaluate his glucose status and whether to restart metformin. He was only taking 250mg per day at home. 5. DVT prophylaxis. TEDs and SCDs. I have asked Surgery whether he could be using subcutaneous heparin and we will await on their answer. 6. Impaired mobility. He will be seen by Physical Therapy for transfer, gait and stair training using the least restrictive assistive device. 7. Impaired self-care. He will be seen by Occupational Therapy for ADL training and equipment evaluation. 8. Impaired cognition. I will have Speech Therapy see him for cognitive evaluation. 9. Advance directives. He is a full code. If he cannot make decisions for himself, his , Noemí Rolle is his healthcare proxy. ESTIMATED LENGTH OF STAY: One to two weeks pending interdisciplinary plan of care meeting. [id number]/CPS #: [id number] OTIS
[2018-09-07] MEDS: Carbidopa/Levodop 25/100 MG TAB(*) PO SCH ×2 (15:12→20:52)
[2018-09-07] MEDS: Heparin VIAL(*) 5000 UNITS/ML VIAL (FIVE THOUSAND) SUBCUT SCH (20:50)
[2018-09-07] MEDS: Docusate CAP* 100 MG PO SCH (20:52)
[2018-09-07] MEDS ORDERED: Heparin VIAL(*) 5000 UNITS/ML VIAL (FIVE THOUSAND) SUBCUT SCH (21:00)
[2018-09-07] MEDS ORDERED: QUEtiapine TAB* 25 MG PO SCH (21:00)
[2018-09-07] MEDS: QUEtiapine TAB* 25 MG PO SCH (22:40)
[2018-09-08] MEDS: QUEtiapine TAB* 25 MG PO SCH ×4 (00:02→23:31)
[2018-09-08 04:52] LABS: ABS Eosinophils 0.3 10^3/ul (0-0.6); ABS Lymphocytes 1.1 10^3/ul (1.0-4.8); ABS Monocytes 0.4 10^3/ul (0-0.8); ABS Neutrophils 2.1 10^3/ul (1.5-7.7); Eosinophil % 8.6 %; Hematocrit 23 % (42-52); Hemoglobin 8.4 g/dL (14.0-18.0); Lymphocyte % 27.4 %; Mean Corpuscular HGB Conc 36 g/dL (31-36); Mean Corpuscular Hemoglobin 33 pg (27-31); Mean Corpuscular Volume 92 fL (80-94); Mean Platelet Volume 6.4 fL (7.4-10.4); Nucleated Red Blood Cells % 0.1; Platelet Count 174 10^3/uL (150-450); Red Blood Count 2.54 10^6 /uL (4.18-5.48); Red Cell Distribution Width 14 % (10-15); White Blood Count 3.9 10^3/uL (3.5-10.8)
[2018-09-08 05:12] LABS: Albumin 3.1 g/dL (3.2-5.2); Albumin/Globulin Ratio 1.6 (1-3); BUN/Creatinine Ratio 19.4 (8-20); Calcium 8.2 mg/dL (8.6-10.3); EGFR African American 133.8 (>60); EGFR Non-African American 110.6 (>60); Potassium 3.5 mmol/L (3.5-5.0); Total Bilirubin 0.6 mg/dL (0.2-1.0); Total Protein 5.1 g/dL (6.4-8.9)
--- NOTE | 2018-09-08 09:05 | PN ---
Progress Note Date of Service: 09/08/18 Note: SHARLENE GANT was visited. Nursing and therapy notes read and reviewed. No chest pain or shortness of breath. Some mild abdominal discomfort. He is a little tired, but took percocet this morning for his arm tremor pains, not abdominal pain. Not lightheaded or dizzy. Current Medications: Active Medications Generic Name Dose Route Start Last Admin Trade Name Freq PRN Reason Stop Dose Admin Acetaminophen 650 mg 09/07/18 10:26 Tylenol Tab* PO Q4H PRN FEVER > 101 or mild pain Amantadine HCl 100 mg 09/08/18 09:00 Symmetrel Cap* PO DAILY RAYSHAWN Benztropine Mesylate 1 mg 09/07/18 10:48 Cogentin Tab* PO QID PRN AGITATION Carbidopa/Levodopa 0.5 tab 09/07/18 14:00 09/07/18 20:52 Sinemet 25/100 Tab(*) PO 0.5 tab TID RAYSHAWN Administration Docusate Sodium 100 mg 09/07/18 21:00 09/07/18 20:52 Colace Cap* PO 100 mg BID RAYSHAWN Administration Famotidine 20 mg 09/08/18 09:00 Pepcid Tab* PO DAILY RAYSHAWN Fluphenazine HCl 10 mg 09/08/18 09:00 Prolixin Tab* PO DAILY RAYSHAWN Heparin Sodium (Porcine) 5,000 units 09/07/18 21:00 09/07/18 20:50 Heparin Vial(*) SUBCUT 5,000 units Q12HR RAYSHAWN Administration Lorazepam 1 mg 09/07/18 10:47 Ativan Tab(*) PO TID PRN ANXIETY Oxycodone/Acetaminophen 1 tab 09/07/18 10:48 Percocet 5/325 Tab* PO Q6H PRN moderate to severe Pain Polyethylene Glycol/Electrolytes 17 gm 09/08/18 09:00 Miralax* PO DAILY RAYSHAWN Quetiapine Fumarate 25 mg 09/07/18 21:30 09/08/18 00:02 Seroquel Tab* PO 25 mg 1900,2100,2300 RAYSHAWN Administration Sertraline HCl 150 mg 09/08/18 09:00 Zoloft* PO DAILY RAYSHAWN Vital Signs: Vital Signs Temp Pulse Resp BP Pulse Ox 97.4 F 76 18 142/87 99 09/08/18 04:51 09/08/18 04:51 09/08/18 04:51 09/08/18 04:51 09/08/18 04:51 Lab Results: Laboratory Results - last 24 hr 09/08/18 09/08/18 04:35 04:35 WBC 3.9 RBC 2.54 L Hgb 8.4 L Hct 23 L MCV 92 MCH 33 H MCHC 36 RDW 14 Plt Count 174 MPV 6.4 L Neut % (Auto) 53.6 Lymph % (Auto) 27.4 [facility] % (Auto) 9.7 Eos % (Auto) 8.6 Baso % (Auto) 0.7 Absolute Neuts (auto) 2.1 Absolute Lymphs (auto) 1.1 Absolute Monos (auto) 0.4 Absolute Eos (auto) 0.3 Absolute Basos (auto) 0.0 Absolute Nucleated RBC 0.0 Nucleated RBC % 0.1 Sodium 136 Potassium 3.5 Chloride 103 Carbon Dioxide 28 Anion Gap 5 BUN 14 Creatinine 0.72 Est GFR ( Amer) 133.8 Est GFR (Non-Af Amer) 110.6 BUN/Creatinine Ratio 19.4 Glucose 94 Calcium 8.2 L Total Bilirubin 0.60 AST 25 ALT 18 Alkaline Phosphatase 54 Total Protein 5.1 L Albumin 3.1 L Globulin 2.0 Albumin/Globulin Ratio 1.6 Exam: GEN: no acute distress. alert and appropriate. LUNGS: clear to auscultation bilaterally. CV: regular rate and rhythm ABD: + bowel sounds, soft, mildly tender, non-distended. Eccymoses as before. EXT: no edema. NEURO: CN II-XII intact. Tremors x4 ext. Motor 5/5 BUE/BLE. Normal sensation. Assessment/Plan: 62-year-old man with Parkinson's disease exacerbation in the setting of sigmoid volvulus status post sigmoid colectomy with primary anastomosis. 1. Status post sigmoid volvulus and sigmoid colectomy with primary anastomosis. He is to follow up with Dr. Fitzpatrick. He has a 10 to 15 pound lifting restriction for 3 weeks. He will use Percocet 1 tablet q.6 hours p.r.n. moderate to severe pain and Tylenol 650 mg q.6 hours p.r.n. mild pain. Soft diet. Noted drop in H/H compared to 5 days ago and I d/w Dr. Miller covering surgery today. Likely dilutional and post-op given he is otherwise well and vitals are stable. Recheck tomorrow or if symptomatic. 2. Parkinson's disease. Continue with Sinemet and amantadine. PT/OT. I will clarify with nursing that percocet is for post-op abdominal pain not pain related to Parkinsons tremors. 3. Schizophrenia. Cogentin prn for agitation. Ativan prn for anxiety. On Zoloft, fluphanzine, Seroquel. 4. Prediabetes. consistent carbohydrate diet. When he seems to be eating regularly, we can evaluate his glucose status and whether to restart metformin. He was only taking 250mg per day at home. 5. DVT prophylaxis. TEDs and subcutaneous heparin 5000u Q12h ok per surgery. 6. Impaired cognition. Speech therapy 7. Advance directives. He is a full code. If he cannot make decisions for himself, his , Noemí Rolle is his healthcare proxy. 8. Estimated LOS: IP Monday09/08/18 10:33
[2018-09-08] MEDS: Carbidopa/Levodop 25/100 MG TAB(*) PO SCH ×3 (09:15→21:18)
[2018-09-08] MEDS: Amantadine CAP* 100 MG PO SCH (09:15)
[2018-09-08] MEDS: Docusate CAP* 100 MG PO SCH ×2 (09:16→21:18)
[2018-09-08] MEDS: Polyethylene Glycol 3350* 17 GM PACKET PO SCH (09:17)
[2018-09-08] MEDS: Sertraline* 50 MG TAB PO SCH (09:17)
[2018-09-08] MEDS: Famotidine TAB* 20 MG PO SCH (09:17)
[2018-09-08] MEDS: Heparin VIAL(*) 5000 UNITS/ML VIAL (FIVE THOUSAND) SUBCUT SCH ×2 (09:17→21:18)
[2018-09-08] MEDS: fluPHENAZine HCL TAB* 5 MG PO SCH (09:17)
[2018-09-08] MEDS ORDERED: oxyCODONE/Acetamin 5/325 MG* TAB PO PRN (10:38)
[2018-09-09 05:43] LABS: ABS Eosinophils 0.3 10^3/ul (0-0.6); ABS Lymphocytes 1.2 10^3/ul (1.0-4.8); ABS Monocytes 0.4 10^3/ul (0-0.8); ABS Neutrophils 2.1 10^3/ul (1.5-7.7); Eosinophil % 7.6 %; Hematocrit 25 % (42-52); Lymphocyte % 30.1 %; Mean Corpuscular HGB Conc 36 g/dL (31-36); Mean Corpuscular Hemoglobin 33 pg (27-31); Mean Corpuscular Volume 93 fL (80-94); Mean Platelet Volume 6.4 fL (7.4-10.4); Platelet Count 219 10^3/uL (150-450); Red Blood Count 2.72 10^6 /uL (4.18-5.48); Red Cell Distribution Width 14 % (10-15); White Blood Count 4.1 10^3/uL (3.5-10.8)
[2018-09-09] MEDS: Amantadine CAP* 100 MG PO SCH (09:12)
[2018-09-09] MEDS: Carbidopa/Levodop 25/100 MG TAB(*) PO SCH ×3 (09:12→20:09)
[2018-09-09] MEDS: Heparin VIAL(*) 5000 UNITS/ML VIAL (FIVE THOUSAND) SUBCUT SCH ×2 (09:13→20:53)
[2018-09-09] MEDS: Polyethylene Glycol 3350* 17 GM PACKET PO SCH (09:13)
[2018-09-09] MEDS: fluPHENAZine HCL TAB* 5 MG PO SCH (09:13)
[2018-09-09] MEDS: Famotidine TAB* 20 MG PO SCH (09:13)
[2018-09-09] MEDS: Docusate CAP* 100 MG PO SCH ×2 (09:13→20:09)
[2018-09-09] MEDS: Sertraline* 50 MG TAB PO SCH (09:13)
--- NOTE | 2018-09-09 09:18 | PN ---
Progress Note Date of Service: 09/09/18 Note: SHARLENE GANT was visited. Nursing notes read and reviewed. His tremors are bad this morning, but he has not received his medications yet. Denies abdominal pain. No chest pain or shortness of breath. + flatus. No stool yet. Current Medications: Active Medications Generic Name Dose Route Start Last Admin Trade Name Freq PRN Reason Stop Dose Admin Acetaminophen 650 mg 09/08/18 10:39 Tylenol Tab* PO Q4H PRN T>101, mild abdomen pain Amantadine HCl 100 mg 09/08/18 09:00 09/08/18 09:15 Symmetrel Cap* PO 100 mg DAILY RAYSHAWN Administration Benztropine Mesylate 1 mg 09/07/18 10:48 Cogentin Tab* PO QID PRN AGITATION Carbidopa/Levodopa 0.5 tab 09/07/18 14:00 09/08/18 21:18 Sinemet 25/100 Tab(*) PO 0.5 tab TID RAYSHAWN Administration Docusate Sodium 100 mg 09/07/18 21:00 09/08/18 21:18 Colace Cap* PO 100 mg BID RAYSHAWN Administration Famotidine 20 mg 09/08/18 09:00 09/08/18 09:17 Pepcid Tab* PO 20 mg DAILY RAYSHAWN Administration Fluphenazine HCl 10 mg 09/08/18 09:00 09/08/18 09:17 Prolixin Tab* PO 10 mg DAILY RAYSHAWN Administration Heparin Sodium (Porcine) 5,000 units 09/07/18 21:00 09/08/18 21:18 Heparin Vial(*) SUBCUT 5,000 units Q12HR RAYSHAWN Administration Lorazepam 1 mg 09/07/18 10:47 Ativan Tab(*) PO TID PRN ANXIETY Oxycodone/Acetaminophen 1 tab 09/08/18 10:38 Percocet 5/325 Tab* PO Q6H PRN mod to severe abdominal pain Polyethylene Glycol/Electrolytes 17 gm 09/08/18 09:00 09/08/18 09:17 Miralax* PO 17 gm DAILY RAYSHAWN Administration Quetiapine Fumarate 25 mg 09/07/18 21:30 09/08/18 23:31 Seroquel Tab* PO 25 mg 1900,2100,2300 RAYSHAWN Administration Sertraline HCl 150 mg 09/08/18 09:00 09/08/18 09:17 Zoloft* PO 150 mg DAILY RAYSHAWN Administration Vital Signs: Vital Signs Temp Pulse Resp BP Pulse Ox 97.9 F 78 18 144/87 99 09/09/18 05:45 09/09/18 05:45 09/09/18 05:45 09/09/18 05:45 09/09/18 05:45 Lab Results: Laboratory Results - last 24 hr 09/09/18 05:37 WBC 4.1 RBC 2.72 L Hgb 9.0 L Hct 25 L MCV 93 MCH 33 H MCHC 36 RDW 14 Plt Count 219 MPV 6.4 L Neut % (Auto) 51.6 Lymph % (Auto) 30.1 [place] % (Auto) 9.8 Eos % (Auto) 7.6 Baso % (Auto) 0.9 Absolute Neuts (auto) 2.1 Absolute Lymphs (auto) 1.2 Absolute Monos (auto) 0.4 Absolute Eos (auto) 0.3 Absolute Basos (auto) 0.0 Absolute Nucleated RBC 0.0 Nucleated RBC % 0.0 Exam: GEN: no acute distress. alert and appropriate. LUNGS: clear to auscultation bilaterally. CV: regular rate and rhythm ABD: + bowel sounds, soft, non-tender, non-distended. Eccymoses as before. EXT: no edema. NEURO: Tremors x4 ext. Motor 5/5 BUE/BLE. Normal sensation. Assessment/Plan: 62-year-old man with Parkinson's disease exacerbation in the setting of sigmoid volvulus status post sigmoid colectomy with primary anastomosis. 1. Status post sigmoid volvulus and sigmoid colectomy with primary anastomosis. Daily miralx and colace per surgery. He is to follow up with Dr. Fitzpatrick. He has a 10 to 15 pound lifting restriction for 3 weeks. He will use Percocet 1 tablet q.6 hours p.r.n. moderate to severe pain and Tylenol 650 mg q.6 hours p.r.n. mild pain. Soft diet. H/H stable post-op. 2. Parkinson's disease. Continue with Sinemet and amantadine. Will schedule first dose earlier in AM. PT/OT. I will clarify with nursing that percocet is for post-op abdominal pain not pain related to Parkinsons tremors. 3. Schizophrenia. Cogentin prn for agitation. Ativan prn for anxiety. On Zoloft, fluphanzine, Seroquel. 4. Prediabetes. consistent carbohydrate diet. When he seems to be eating regularly, we can evaluate his glucose status and whether to restart metformin. He was only taking 250mg per day at home. 5. DVT prophylaxis. TEDs and subcutaneous heparin 5000u Q12h ok per surgery. 6. Impaired cognition. Speech therapy 7. Advance directives. He is a full code. If he cannot make decisions for himself, his , Noemí Rolle is his healthcare proxy. 8. Estimated LOS: IPOC Monday09/09/18 09:17
--- NOTE | 2018-09-09 11:19 | PN ---
Progress Note - Progress Note Date of Service: 09/09/18 SOAP: Subjective: Doing well with minimal pain Passing large amounts of flatus, no BM yet Ambulating No N/V and tolerating po Objective: Temp Pulse Resp BP Pulse Ox 97.9 F 78 18 144/87 99 09/09/18 08:00 09/09/18 08:00 09/09/18 08:00 09/09/18 08:00 09/09/18 08:00 Intake & Output 09/07/18 09/08/18 09/09/18 09/10/18 06:59 06:59 06:59 06:59 Intake Total 320 720 240 Balance 320 720 240 Weight 138 lb 3.677 oz Intake: Oral 320 720 240 Other: Estimated Void Medium Medium # Voids 1 1 PEX: Comfortable in chair Abd is soft and slightly distended. Bowel sounds are present and slightly hyperactive. No pain Incision CDI with ecchymosis over entire abdominal wall, no hematoma Laboratory Results - last 24 hr 09/09/18 05:37 WBC 4.1 RBC 2.72 L Hgb 9.0 L Hct 25 L MCV 93 MCH 33 H MCHC 36 RDW 14 Plt Count 219 MPV 6.4 L Neut % (Auto) 51.6 Lymph % (Auto) 30.1 [place] % (Auto) 9.8 Eos % (Auto) 7.6 Baso % (Auto) 0.9 Absolute Neuts (auto) 2.1 Absolute Lymphs (auto) 1.2 Absolute Monos (auto) 0.4 Absolute Eos (auto) 0.3 Absolute Basos (auto) 0.0 Absolute Nucleated RBC 0.0 Nucleated RBC % 0.0 Assessment: S/P open sigmoid colectomy for sigmoid colon volvulus Doing well H/H stable Plan: Soft diet Rehab plans
[2018-09-09] MEDS: LORazepam TAB(*) 1 MG PO PRN (15:05)
[2018-09-09] MEDS: Benztropine TAB* 1 MG PO PRN (18:51)
[2018-09-09] MEDS: QUEtiapine TAB* 25 MG PO SCH ×2 (20:09→23:10)
[2018-09-10 06:09] LABS: ABS Eosinophils 0.1 10^3/ul (0-0.6); ABS Lymphocytes 0.9 10^3/ul (1.0-4.8); ABS Monocytes 0.3 10^3/ul (0-0.8); ABS Neutrophils 2.9 10^3/ul (1.5-7.7); Eosinophil % 2.8 %; Hematocrit 28 % (42-52); Lymphocyte % 20.9 %; Mean Corpuscular HGB Conc 35 g/dL (31-36); Mean Corpuscular Hemoglobin 33 pg (27-31); Mean Corpuscular Volume 93 fL (80-94); Mean Platelet Volume 6.7 fL (7.4-10.4); Nucleated Red Blood Cells % 0.1; Platelet Count 253 10^3/uL (150-450); Red Blood Count 3.06 10^6 /uL (4.18-5.48); Red Cell Distribution Width 14 % (10-15); White Blood Count 4.3 10^3/uL (3.5-10.8)
[2018-09-10 06:12] LABS: Albumin 3.6 g/dL (3.2-5.2); Calcium 8.6 mg/dL (8.6-10.3); Potassium 3.7 mmol/L (3.5-5.0); Total Bilirubin 0.7 mg/dL (0.2-1.0)
[2018-09-10 06:18] LABS: Albumin/Globulin Ratio 1.4 (1-3); BUN/Creatinine Ratio 25.3 (8-20); EGFR African American 127.7 (>60); EGFR Non-African American 105.5 (>60); Globulin 2.5 g/dL (2-4); Total Protein 6.1 g/dL (6.4-8.9)
[2018-09-10] MEDS: Carbidopa/Levodop 25/100 MG TAB(*) PO SCH ×3 (06:31→20:08)
[2018-09-10] MEDS: Polyethylene Glycol 3350* 17 GM PACKET PO SCH (08:02)
[2018-09-10] MEDS: Amantadine CAP* 100 MG PO SCH (08:04)
[2018-09-10] MEDS: Famotidine TAB* 20 MG PO SCH (08:05)
[2018-09-10] MEDS: fluPHENAZine HCL TAB* 5 MG PO SCH (08:05)
[2018-09-10] MEDS: Heparin VIAL(*) 5000 UNITS/ML VIAL (FIVE THOUSAND) SUBCUT SCH ×2 (08:06→20:58)
[2018-09-10] MEDS: Sertraline* 50 MG TAB PO SCH (09:36)
[2018-09-10] MEDS: Docusate CAP* 100 MG PO SCH ×2 (09:36→20:57)
--- NOTE | 2018-09-10 12:38 | PMRUTEAM ---
PMRU: Team Meeting Current Status: Nursing: Current Status Skin Deviations [Left Knee] Abrasion Skin Deviations [Left Elbow] Abrasion Skin Deviations [Abdomen] Other Skin Deviation Description [ pt states from fall Left Knee] Skin Deviation Description [ pt states from fall Left Elbow] Skin Deviation Description [ unchanged Abdomen] Drain Type [Abdomen] None Physical Therapy: Current Status Bed Mobility Assistance Contact Guard Transfer Mobility Assistance Min Assist Transfer/Bed Mobility Rolling Walker Recommended Devices Ambulation Assistance Contact Guard 150 feet Ambulation Assistive Devices Rolling Walker Stairs Assistance Supervision Stairs Recommended Devices One Rail Number of Stairs 10 Occupational Therapy: Current Status Upper Body Dressing Supervision Lower Body Dressing Min Assist Bathing Min Assist Toileting Contact Guard Assist Toilet Transfer Contact Guard Assist Shower Transfer Contact Guard Assist Eating Supervision Rec Therapy: Current Status Summary of Assessment and Pt. was in his room with his and sister. Pt. Clinical Impression was open to learning about recreation therapy services and engaged in conversation about his personal interests and involvement. Pt.'s contributed to conversation multiple times throughout. Pt. was agreeable to leisure visits and activities while on the unit. Pt. declined pet therapy when asked by nursing staff. Treatment Goals Pt. will engage in leisure activities. Treatment Plan Provide recreation therapy services and encourage involvement. Social Work: Current Status Discharge Plan return home with home care svs and family support Potential for Family Training pt's is involved and supportive Anticipated Discharge Home Destination Discharge With home care svs and family support Goals: Physical Therapy: Initial Goals Bed Mobility Assistance Independent Transfer Mobility Assistance Independent Transfer/Bed Mobility Rolling Walker Recommended Devices Ambulation Independent Ambulation Recommended Devices Rolling Walker Ambulation Distance 300 Stairs Assistance Independent Stair Recommended Devices Two Rails Number of Stairs 10 Physical Therapy: Updated Goals Transfer/Bed Mobility Rolling Walker Recommended Devices Occupational Therapy: Initial Goals Goals to be Completed in (Days 4-6 days ) Upper Body Bathing Routine Modified Independent with Lower Body Bathing Routine Modified Independent with Upper Body Dressing Routine Modified Independent with Lower Body Dressing Routine Modified Independent with Toilet Hygeine and Clothing Modified Independent with Management Routine Toilet Transfer Routine Modified Independent with Tub Transfer Routine Modified Independent with Functional Transfers for ADL Modified Independent with Grooming Routine Modified Independent with Feeding Routine Modified Independent with Nutrition: Goals Intervention Goals 1. pt will tolerate diet progression without adverse GI effects 2. adequate po intake to maintain lean body mass and hydration without add'l wt loss 3. glycemic control without s/sx hypo- or hyperglycemia 4. achieve and maintain serum electrolytes levels WNL 5. achieve and maintain regulated bowel pattern without c/o constipation (or diarrhea) Speech: Goals Speech Goal 1 Voice and Motor Speech Speech Evaluation Status Goal Mild-moderate impairment 1 Goal 1 Comments Voice and Motor Speech Goals: Long-Term Goal: Pt will use compensatory strategies to increase vocal loudness to moderate and speech to intelligibility to 95-100%, in spontaneous conversational speech, Independently, as observed by therapists, nursing and medical staff. Status: Goal established Short-Term Goal: Pt will complete loud voice exercises and use compensatory strategies to increase vocal loudness to moderate and speech to intelligibility to 95%, in structured conversational speech, given skilled instruction, Moderate cueing, and extra time, as observed by therapists, nursing and medical staff. Status: Goal established. Speech Goal 2 Problem Solving Speech Goal 2 Evaluation Mild-moderate impairment Status Speech Goal 2 Comments Problem Solving Goals: Long-Term Goal: Pt will use compensatory strategies to solve moderately complex routine problems, for transfer and mobility safety, adaptive dressing, time and money management; with 100% accuracy, Independently. Status: Goal established Short-Term Goal: Pt will use compensatory strategies to solve simple routine problems, for transfer and mobility safety, adaptive dressing, time and money management; with 80% accuracy, given skilled instruction, Moderate cueing, and extra time. Status: Goal established. Social Work: Goals Discharge Plan return home with home care svs and family support Potential for Family Training pt's is involved and supportive Anticipated Discharge Home Destination Discharge With home care svs and family support Care Plan: Care Plan Communication-Improve/Maintain Start: 09/07/18 16:59 Freq: DAILY Status: Active Target: Protocol: Activity Type Activity Date Activity User E-Sign Co-Sign Detail Recorded Client Recorded Date Recorded By Document 09/10/18 00:30 [id number] [email or web address] 09/10/18 00:30 [id number] 09/10/18 00:30 PMRU Outcome: Communication/Cognitive Status Outcome/Goals Makes Needs Known Effectively Other Outcomes/Goals Voice and Motor Speech Goals: Long-Term Goal: Pt will use compensatory strategies to increase vocal loudness to moderate and speech to intelligibility to 95-100%, in spontaneous conversational speech, Independently, as observed by therapists, nursing and medical staff. Status: Goal established Short-Term Goal : Pt will complete loud voice exercises and use compensatory strategies to increase vocal loudness to moderate and speech to intelligibility to 95%, in structured conversational speech, given skilled instruction, Moderate cueing , and extra time, as observed by therapists, nursing and medical staff. Status: Goal established. Problem Solving Goals: Long-Term Goal: Pt will use compensatory strategies to solve moderately complex routine problems, for transfer and mobility safety , adaptive dressing, time and money management; with 100% accuracy, Independently. Status: Goal established Short-Term Goal : Pt will use compensatory strategies to solve simple routine problems, for transfer and mobility safety , adaptive dressing, time and money management; with 80% accuracy, given skilled instruction, Moderate cueing , and extra time. Status: Goal established Progression Toward Outcomes/Goals Goals Adjusted DVT Prophylaxis- Improve/Maintain Start: 09/08/18 02:20 Freq: QSHIFT Status: Active Target: Protocol: Activity Type Activity Date Activity User E-Sign Co-Sign Detail Recorded Client Recorded Date Recorded By Document 09/10/18 00:31 [id number] [email or web address] 09/10/18 00:31 [id number] 09/10/18 00:31 PMRU Outcome: DVT Prophylaxis Outcome/Goals Remains Free of DVT Progression Toward Outcome/Goals Progressing Discharge Planning - Improve/Maintain Start: 09/08/18 02:20 Freq: DAILY Status: Active Target: Protocol: Activity Type Activity Date Activity User E-Sign Co-Sign Detail Recorded Client Recorded Date Recorded By Document 09/10/18 00:30 [id number] [email or web address] 09/10/18 00:30 [id number] 09/10/18 00:30 PMRU Outcome: Discharge Planning Update Patient Family No Outcome/Goals Demonstrates Understanding of Discharge Plan Progression Toward Outcome/Goals Progressing Education-Improve/Maintain Start: 09/08/18 02:20 Freq: QSHIFT Status: Active Target: Protocol: Activity Type Activity Date Activity User E-Sign Co-Sign Detail Recorded Client Recorded Date Recorded By Document 09/10/18 00:31 [id number] [email or web address] 09/10/18 00:31 [id number] 09/10/18 00:31 PMRU Outcome: Education Outcome/Goals Encourage Questions Progression Toward Outcome/Goals Progressing /GI-Improve/Maintain Start: 09/08/18 02:20 Freq: QSHIFT Status: Active Target: Protocol: Activity Type Activity Date Activity User E-Sign Co-Sign Detail Recorded Client Recorded Date Recorded By Document 09/10/18 00:31 [id number] [email or web address] 09/10/18 00:31 09/10/18 00:31 PMRU Outcome: Genitourinary/ Gastrointestinal Genitourinary- Outcome/Goals Maintain/ Achieve Urinary Continence Gastrointestinal-Outcome/Goals Maintain/ Achieve Bowel Regularity in Accordance with Pt's Baseline Progression Toward Outcome/Goals - Not Progressing Gastrointestinal-Improve/Maintain Start: 09/07/18 15:41 Freq: DAILY@0400,1600 Status: Complete Target: Protocol: Activity Type Activity Date Activity User E-Sign Co-Sign Detail Recorded Client Recorded Date Recorded By Document 09/07/18 22:25 [id number] [email or web address] 09/07/18 22:26 [id number] 09/07/18 22:25 Outcome: Gastrointestinal Outcome/Goals Maintain/ Achieve Bowel Regularity in Accordance with Pt's Baseline Medication Administration Start: 09/08/18 02:20 Freq: QSHIFT Status: Active Target: Protocol: Activity Type Activity Date Activity User E-Sign Co-Sign Detail Recorded Client Recorded Date Recorded By Document 09/10/18 00:31 [id number] [email or web address] 09/10/18 00:31 [id number] 09/10/18 00:31 PMRU Outcome: Medication Administration Assess Patient Knowledge/Teach Med No Education for all Meds Outcome/Goals Demonstrates Understanding Progression Towards Outcome/Goals Progressing Is Patient Going Home on Lovenox? No Neurological- Improve/Maintain Start: 09/08/18 02:20 Freq: QSHIFT Status: Active Target: Protocol: Activity Type Activity Date Activity User E-Sign Co-Sign Detail Recorded Client Recorded Date Recorded By Document 09/10/18 00:31 [id number] [id number] 09/10/18 00:31 [id number] 09/10/18 00:31 PMRU Outcome: Neurological Weakness/Aphasia Weakness Outcome/Goals Maintain/ Achieve Baseline Neurological Status Progression Toward Outcome/Goals Progressing Nutrition/Swallowing- Improve/Maintain Start: 09/08/18 02:20 Freq: QSHIFT Status: Active Target: Protocol: Activity Type Activity Date Activity User E-Sign Co-Sign Detail Recorded Client Recorded Date Recorded By Document 09/10/18 00:31 [id number] [email or web address] 09/10/18 00:31 [id number] 09/10/18 00:31 PMRU Outcome: Nutrition/Swallowing Outcome/Goals Demonstrates Adequate Hydration/ Prevents Dehydration Progression Toward Outcome/Goals Progressing Pain/Comfort- Improve/Maintain Start: 09/08/18 02:20 Freq: QSHIFT Status: Active Target: Protocol: Activity Type Activity Date Activity User E-Sign Co-Sign Detail Recorded Client Recorded Date Recorded By Document 09/10/18 00:31 [id number] [email or web address] 09/10/18 00:31 [id number] 09/10/18 00:31 PMRU Outcome: Pain/Comfort Outcome/Goals Demonstrates Knowledge and Use of Available Comfort Measures Progression Toward Outcome/Goals Progressing Safety- Improve/Maintain Start: 09/07/18 15:41 Freq: DAILY@0400,1600 Status: Complete Target: Protocol: Activity Type Activity Date Activity User E-Sign Co-Sign Detail Recorded Client Recorded Date Recorded By Document 09/07/18 22:25 [id number] [email or web address] 09/07/18 22:26 [id number] 09/07/18 22:25 Outcome: Safety Outcome/Goals Remain Free of Injury or Harm Cooperates with Safety Measures for Least Restrictive Environment Safety- Improve/Maintain Start: 09/08/18 02:20 Freq: QSHIFT Status: Active Target: Protocol: Activity Type Activity Date Activity User E-Sign Co-Sign Detail Recorded Client Recorded Date Recorded By Document 09/09/18 20:00 [id number] [email or web address] 09/09/18 22:34 [id number] 09/09/18 20:00 PMRU Outcome: Safety Outcome/Goals Remain Free of Injury or Harm Progression Toward Outcome/Goals Progressing Skin-Improve/Maintain Start: 09/07/18 15:41 Freq: DAILY@0400,1600 Status: Complete Target: Protocol: Activity Type Activity Date Activity User E-Sign Co-Sign Detail Recorded Client Recorded Date Recorded By Document 09/07/18 22:25 [id number] [email or web address] 09/07/18 22:26 [id number] 09/07/18 22:25 Outcome: Skin Outcome/Goals Maintain/ Improve Skin Intergrity Free from Decubitus Surgical Incisions Healing Medicine Note: Length of Stay: 8 days Anticipated Discharge Destination: Home Tentative Discharge Date: September 18, 2018 Discharged to: Home
[2018-09-10] MEDS: LORazepam TAB(*) 1 MG PO PRN (15:40)
[2018-09-10] MEDS: QUEtiapine TAB* 25 MG PO SCH ×3 (19:13→23:10)
--- NOTE | 2018-09-10 21:07 | PN ---
Progress Note Date of Service: 09/10/18 Note: SHARLENE GANT was visited. Therapy notes read and reviewed. He was discussed in interdisciplinary plan of care rounds. He had a BM today with a fair amount of clots. His Hb today was better (10). Current Medications: Active Medications Generic Name Dose Route Start Last Admin Trade Name Freq PRN Reason Stop Dose Admin Acetaminophen 650 mg 09/08/18 10:39 Tylenol Tab* PO Q4H PRN T>101, mild abdomen pain Amantadine HCl 100 mg 09/08/18 09:00 09/10/18 08:04 Symmetrel Cap* PO 100 mg DAILY RAYSHAWN Administration Benztropine Mesylate 1 mg 09/07/18 10:48 09/09/18 18:51 Cogentin Tab* PO 1 mg QID PRN Administration AGITATION Carbidopa/Levodopa 0.5 tab 09/09/18 12:00 09/10/18 20:08 Sinemet 25/100 Tab(*) PO 0.5 tab 0700,1200,2000 RAYSHAWN Administration Docusate Sodium 100 mg 09/07/18 21:00 09/10/18 20:57 Colace Cap* PO 100 mg BID RAYSHAWN Administration Famotidine 20 mg 09/08/18 09:00 09/10/18 08:05 Pepcid Tab* PO 20 mg DAILY RAYSHAWN Administration Fluphenazine HCl 10 mg 09/08/18 09:00 09/10/18 08:05 Prolixin Tab* PO 10 mg DAILY RAYSHAWN Administration Heparin Sodium (Porcine) 5,000 units 09/07/18 21:00 09/10/18 20:58 Heparin Vial(*) SUBCUT 5,000 units Q12HR RAYSHAWN Administration Lorazepam 1 mg 09/07/18 10:47 09/10/18 15:40 Ativan Tab(*) PO 1 mg TID PRN Administration ANXIETY Oxycodone/Acetaminophen 1 tab 09/08/18 10:38 Percocet 5/325 Tab* PO Q6H PRN mod to severe abdominal pain Polyethylene Glycol/Electrolytes 17 gm 09/08/18 09:00 09/10/18 08:02 Miralax* PO 17 gm DAILY RAYSHAWN Administration Quetiapine Fumarate 25 mg 09/07/18 21:30 09/10/18 19:13 Seroquel Tab* PO 25 mg 1900,2100,2300 RAYSHAWN Administration Sertraline HCl 150 mg 09/08/18 09:00 09/10/18 09:36 Zoloft* PO 150 mg DAILY RAYSHAWN Administration Vital Signs: Vital Signs Temp Pulse Resp BP Pulse Ox 97.6 F 89 18 146/75 96 09/10/18 16:10 09/10/18 16:10 09/10/18 19:40 09/10/18 16:10 09/10/18 18:57 Lab Results: Laboratory Results - last 24 hr 09/10/18 09/10/18 05:33 05:33 WBC 4.3 RBC 3.06 L Hgb 10.0 L Hct 28 L MCV 93 MCH 33 H MCHC 35 RDW 14 Plt Count 253 MPV 6.7 L Neut % (Auto) 68.5 Lymph % (Auto) 20.9 [place] % (Auto) 7.3 Eos % (Auto) 2.8 Baso % (Auto) 0.5 Absolute Neuts (auto) 2.9 Absolute Lymphs (auto) 0.9 L Absolute Monos (auto) 0.3 Absolute Eos (auto) 0.1 Absolute Basos (auto) 0.0 Absolute Nucleated RBC 0.0 Nucleated RBC % 0.1 Sodium 132 L Potassium 3.7 Chloride 99 L Carbon Dioxide 25 Anion Gap 8 BUN 19 Creatinine 0.75 Est GFR ( Amer) 127.7 Est GFR (Non-Af Amer) 105.5 BUN/Creatinine Ratio 25.3 H Glucose 108 H Calcium 8.6 Total Bilirubin 0.70 AST 26 ALT 24 Alkaline Phosphatase 74 Total Protein 6.1 L Albumin 3.6 Globulin 2.5 Albumin/Globulin Ratio 1.4 Exam: GENERAL: no acute distress. alert and appropriate. LUNGS: clear to auscultation bilaterally. HEART: regular rate and rhythm ABDOMEN: + bowel sounds, soft, non-tender, non-distended. Ecchymoses as before. EXTREMITIES: no edema. NEUROLOGIC: Tremors x4 ext. Motor 5/5 BUE/BLE. Normal sensation. Assessment/Plan: 62-year-old man with Parkinson's disease exacerbation in the setting of sigmoid volvulus status post sigmoid colectomy with primary anastomosis. 1. Status post sigmoid volvulus and sigmoid colectomy with primary anastomosis. Daily miralax and colace. F/U with Dr. Fitzpatrick. 15 pound lifting limit for 3 weeks. Soft diet. PT/OT 2. Parkinson's disease. Sinemet/amantadine. PT/OT. 3. Schizophrenia. Cogentin prn for agitation. Ativan prn for anxiety. On Zoloft, fluphanzine, Seroquel. 4. Prediabetes. consistent carbohydrate diet. Restart metformin when adequate PO. He was only taking 250mg per day at home. 5. DVT prophylaxis. TEDs and subcutaneous heparin 5000u Q12h ok per surgery. 6. Impaired cognition. Speech therapy 7. Advance directives. He is a full code. If he cannot make decisions for himself, his , Noemí Rolle is his healthcare proxy. 8. Estimated LOS: 09/1809/10/18 21:08
[2018-09-11] MEDS: LORazepam TAB(*) 1 MG PO PRN (03:23)
[2018-09-11] MEDS: Carbidopa/Levodop 25/100 MG TAB(*) PO SCH ×3 (05:44→20:03)
[2018-09-11] MEDS: Amantadine CAP* 100 MG PO SCH (09:55)
[2018-09-11] MEDS: Famotidine TAB* 20 MG PO SCH (09:55)
[2018-09-11] MEDS: Docusate CAP* 100 MG PO SCH ×2 (09:55→20:04)
[2018-09-11] MEDS: fluPHENAZine HCL TAB* 5 MG PO SCH (09:55)
[2018-09-11] MEDS: Heparin VIAL(*) 5000 UNITS/ML VIAL (FIVE THOUSAND) SUBCUT SCH ×2 (09:55→20:11)
[2018-09-11] MEDS: Polyethylene Glycol 3350* 17 GM PACKET PO SCH (09:56)
[2018-09-11] MEDS: Sertraline* 50 MG TAB PO SCH (09:56)
--- NOTE | 2018-09-11 12:53 | PMRUTEAM ---
PMRU: Team Meeting Current Status: Nursing: Current Status Skin Deviations [Left Knee] Abrasion Skin Deviations [Left Elbow] Abrasion Skin Deviations [Abdomen] Bruise,Incision Skin Deviation Description [ pt states from fall Left Knee] Skin Deviation Description [ pt states from fall Left Elbow] Skin Deviation Description [ unchanged Abdomen] Drain Type [Abdomen] None Physical Therapy: Current Status Bed Mobility Assistance Independent Transfer Mobility Assistance Supervision Transfer/Bed Mobility Rolling Walker Recommended Devices Ambulation Assistance Contact Guard Assist Ambulation Assistive Devices Rolling Walker Number of Feet Patient 300x2 Ambulated Stairs Assistance Supervision Stairs Recommended Devices One Rail Number of Stairs 10 Occupational Therapy: Current Status Upper Body Dressing Supervision Lower Body Dressing Contact Guard Assist Bathing Contact Guard Assist Toileting Contact Guard Assist Toilet Transfer Contact Guard Assist Shower Transfer Contact Guard Assist Eating Supervision Rec Therapy: Current Status Summary of Assessment and Recreation Therapy services introduced and Clinical Impression assessment has been completed. Pt. is open to leisure visits and activities, interested in going outside. Pt. has been spending time with visitors in the afternoon. Treatment Goals Pt. will engage in leisure activities while on the unit. Treatment Plan Provide recreation therapy services and encourage involvement. Social Work: Current Status Discharge Plan return home with home care svs and family support Potential for Family Training pt's is scheduled for family training on 09/13 @ 10am Anticipated Discharge Home Destination Discharge With home care svs and family support Nutrition: Current Status Monitoring Pt adm to PMRU s/p sigmoid volvulus. Visited pt today. He reports a good appetite; consumed 100% of B this AM. Continued to encourage prioritization of protein containing foods; pt amenable to Ensure Enlive at B, L, and 15:00 daily , but would like to d/c Ensure Clear. He denies all GI s/sx including difficulty chewing/ swallowing (last BM 09/10 per chart); amenable to continuing soft diet. No pressure related skin breakdown per chart. Labs reviewed: Na+ 132; last BG 108 (appropriate); will continue to monitor labs. Recommend liberalizing diet to just soft to encourage greater po intake given pt's wt status. Will continue to monitor and provide further nutrition intervention as indicated. Speech: Current Status Assessment Patient is progressing as expected. Patient required simplified explanation and direction to maintian attention to task and purpose. givne skilled instruciton, patient demonstrated thoraco- diaphagmatic breathing with mild torso extension and use accessory muscles; moderately loud modal phonation at habitual pitch, at higher pitch a 5th above, and lower pitch a 4th below. Patient completed initial loud voice exercises. Goals: Physical Therapy: Initial Goals Bed Mobility Assistance Independent Transfer Mobility Assistance Independent Transfer/Bed Mobility Rolling Walker Recommended Devices Ambulation Independent Ambulation Recommended Devices Rolling Walker Ambulation Distance 300 Stairs Assistance Independent Stair Recommended Devices Two Rails Number of Stairs 10 Physical Therapy: Updated Goals Transfer/Bed Mobility Rolling Walker Recommended Devices Occupational Therapy: Initial Goals Goals to be Completed in (Days 4-6 days ) Upper Body Bathing Routine Modified Independent with Lower Body Bathing Routine Modified Independent with Upper Body Dressing Routine Modified Independent with Lower Body Dressing Routine Modified Independent with Toilet Hygeine and Clothing Modified Independent with Management Routine Toilet Transfer Routine Modified Independent with Tub Transfer Routine Modified Independent with Functional Transfers for ADL Modified Independent with Grooming Routine Modified Independent with Feeding Routine Modified Independent with Nutrition: Goals Intervention Goals 1) Pt will tolerate least restricted dietary textures w/o difficulty chewing/swallowing 2) Adequate po intake to replete lean body mass and hydration status 3) Improve fluid/electrolyte balance w/ adequate po intake 4) Maintain glycemic control w/ adequate po intake w/o further need for dietary restriction 5) Maintain bowel regularity w/ adequate po intake w/o development of diarrhea/constipation Speech: Goals Speech Goal 1 Voice and Motor Speech Speech Evaluation Status Goal Mild-moderate impairment 1 Goal 1 Comments Voice and Motor Speech Goals: Long-Term Goal: Pt will use compensatory strategies to increase vocal loudness to moderate and speech to intelligibility to 95-100%, in spontaneous conversational speech, Independently, as observed by therapists, nursing and medical staff. Status: progressing as expected Short-Term Goal: Pt will complete loud voice exercises and use compensatory strategies to increase vocal loudness to moderate and speech to intelligibility to 95%, in structured conversational speech, given skilled instruction, Moderate cueing, and extra time, as observed by therapists, nursing and medical staff. Status: Progressing as expected Patient is progressing as expected. Patient required simplified explanation and direction to maintian attention to task and purpose. givne skilled instruciton, patient demonstrated thoraco- diaphagmatic breathing with mild torso extension and use accessory muscles; moderately loud modal phonation at habitual pitch, at higher pitch a 5th above, and lower pitch a 4th below. Patient completed initial loud voice exercises. Speech Goal 2 Problem Solving Speech Goal 2 Evaluation Mild-moderate impairment Status Speech Goal 2 Comments Problem Solving Goals: Long-Term Goal: Pt will use compensatory strategies to solve moderately complex routine problems, for transfer and mobility safety, adaptive dressing, time and money management; with 100% accuracy, Independently. Status: Goal established Short-Term Goal: Pt will use compensatory strategies to solve simple routine problems, for transfer and mobility safety, adaptive dressing, time and money management; with 80% accuracy, given skilled instruction, Moderate cueing, and extra time. Status: Goal established. Social Work: Goals Discharge Plan return home with home care svs and family support Potential for Family Training pt's is scheduled for family training on 09/13 @ 10am Anticipated Discharge Home Destination Discharge With home care svs and family support Care Plan: Care Plan ADL's - Improve/Maintain Start: 09/10/18 15:04 Freq: DAILY Status: Active Target: Protocol: Activity Type Activity Date Activity User E-Sign Co-Sign Detail Recorded Client Recorded Date Recorded By Document 09/10/18 15:04 [id number] 09/10/18 15:05 [id number] 09/10/18 15:04 PMRU Outcome: ADL's/ADL Transfers Orders/Interventions Occupational Therapy Evaluation & Treatment Communication Tool in Patient Room Device Yes: FWW, w/c if fatigued Patient to receive OT 5x/wk for 60-120 Therex min/day Self Care Management Group Therapy UE/LE ADL's with Assist Yes ADL Transfers with Assist Yes Toileting: Transfers,Clothing Management Yes ,Hygeine w/Assist Light Kitchen/Laundry w/Assist Yes Progression Toward Outcome/Goals Progressing Outcome/Goals Met Pt is motivated to complete therapy and get stronger, as he asked for weights to bring to room in between sessions. Pt's balance deficits and tremors affect his ability to have independence with ADLS. Communication-Improve/Maintain Start: 09/07/18 16:59 Freq: DAILY Status: Active Target: Protocol: Activity Type Activity Date Activity User E-Sign Co-Sign Detail Recorded Client Recorded Date Recorded By Document 09/10/18 19:13 [id number] [email or web address] 09/10/18 19:14 [id number] 09/10/18 19:13 PMRU Outcome: Communication/Cognitive Status Outcome/Goals Makes Needs Known Effectively Other Outcomes/Goals Voice and Motor Speech Goals: Long-Term Goal: Pt will use compensatory strategies to increase vocal loudness to moderate and speech to intelligibility to 95-100%, in spontaneous conversational speech, Independently, as observed by therapists, nursing and medical staff. Status: Progressing as expected Short-Term Goal : Pt will complete loud voice exercises and use compensatory strategies to increase vocal loudness to moderate and speech to intelligibility to 95%, in structured conversational speech, given skilled instruction, Moderate cueing , and extra time, as observed by therapists, nursing and medical staff. Status: Progressing as expected Problem Solving Goals: Long-Term Goal: Pt will use compensatory strategies to solve moderately complex routine problems, for transfer and mobility safety , adaptive dressing, time and money management; with 100% accuracy, Independently. Status: Goal established Short-Term Goal : Pt will use compensatory strategies to solve simple routine problems, for transfer and mobility safety , adaptive dressing, time and money management; with 80% accuracy, given skilled instruction, Moderate cueing , and extra time. Status: Goal established Progression Toward Outcomes/Goals Progressing Outcome/Goals Met Comment Patient is progressing as expected. Patient required simplified explanation and direction to maintian attention to task and purpose. givne skilled instruciton, patient demonstrated thoraco- diaphagmatic breathing with mild torso extension and use accessory muscles; moderately loud modal phonation at habitual pitch, at higher pitch a 5th above, and lower pitch a 4th below. Patient completed initial loud voice exercises . DVT Prophylaxis- Improve/Maintain Start: 09/08/18 02:20 Freq: QSHIFT Status: Active Target: Protocol: Activity Type Activity Date Activity User E-Sign Co-Sign Detail Recorded Client Recorded Date Recorded By Document 09/11/18 02:55 [id number] 09/11/18 02:56 [id number] 09/11/18 02:55 PMRU Outcome: DVT Prophylaxis Outcome/Goals Remains Free of DVT Progression Toward Outcome/Goals Progressing Discharge Planning - Improve/Maintain Start: 09/08/18 02:20 Freq: DAILY Status: Active Target: Protocol: Activity Type Activity Date Activity User E-Sign Co-Sign Detail Recorded Client Recorded Date Recorded By Document 09/11/18 02:55 [id number] [id number] 09/11/18 02:56 [id number] 09/11/18 02:55 PMRU Outcome: Discharge Planning Update Patient Family No Outcome/Goals Demonstrates Understanding of Discharge Plan Progression Toward Outcome/Goals Progressing Education-Improve/Maintain Start: 09/08/18 02:20 Freq: QSHIFT Status: Active Target: Protocol: Activity Type Activity Date Activity User E-Sign Co-Sign Detail Recorded Client Recorded Date Recorded By Document 09/11/18 02:55 [id number] 09/11/18 02:56 [id number] 09/11/18 02:55 PMRU Outcome: Education Outcome/Goals Encourage Questions Progression Toward Outcome/Goals Progressing /GI-Improve/Maintain Start: 09/08/18 02:20 Freq: QSHIFT Status: Active Target: Protocol: Activity Type Activity Date Activity User E-Sign Co-Sign Detail Recorded Client Recorded Date Recorded By Document 09/11/18 02:55 [id number] [email or web address] 09/11/18 02:56 [id number] 09/11/18 02:55 PMRU Outcome: Genitourinary/ Gastrointestinal Genitourinary- Outcome/Goals Maintain/ Achieve Urinary Continence Gastrointestinal-Outcome/Goals Maintain/ Achieve Bowel Regularity in Accordance with Pt's Baseline Progression Toward Outcome/Goals - Progressing Outcome/Goals Met Comment pt up to use urinal Gastrointestinal-Improve/Maintain Start: 09/07/18 15:41 Freq: DAILY@0400,1600 Status: Complete Target: Protocol: Activity Type Activity Date Activity User E-Sign Co-Sign Detail Recorded Client Recorded Date Recorded By Document 09/07/18 22:25 [id number] [email or web address] 09/07/18 22:26 [id number] 09/07/18 22:25 Outcome: Gastrointestinal Outcome/Goals Maintain/ Achieve Bowel Regularity in Accordance with Pt's Baseline Medication Administration Start: 09/08/18 02:20 Freq: QSHIFT Status: Active Target: Protocol: Activity Type Activity Date Activity User E-Sign Co-Sign Detail Recorded Client Recorded Date Recorded By Document 09/11/18 02:55 [id number] [email or web address] 09/11/18 02:56 [id number] 09/11/18 02:55 PMRU Outcome: Medication Administration Assess Patient Knowledge/Teach Med No Education for all Meds Outcome/Goals Demonstrates Understanding Progression Towards Outcome/Goals Progressing Is Patient Going Home on Lovenox? No Neurological- Improve/Maintain Start: 09/08/18 02:20 Freq: QSHIFT Status: Active Target: Protocol: Activity Type Activity Date Activity User E-Sign Co-Sign Detail Recorded Client Recorded Date Recorded By Document 09/11/18 02:55 [id number] [email or web address] 09/11/18 02:56 [id number] 09/11/18 02:55 PMRU Outcome: Neurological Weakness/Aphasia Weakness Outcome/Goals Maintain/ Achieve Baseline Neurological Status Progression Toward Outcome/Goals Progressing Nutrition/Swallowing- Improve/Maintain Start: 09/08/18 02:20 Freq: QSHIFT Status: Active Target: Protocol: Activity Type Activity Date Activity User E-Sign Co-Sign Detail Recorded Client Recorded Date Recorded By Document 09/11/18 02:55 [id number] 09/11/18 02:56 [id number] 09/11/18 02:55 PMRU Outcome: Nutrition/Swallowing Outcome/Goals Demonstrates Adequate Hydration/ Prevents Dehydration Progression Toward Outcome/Goals Progressing Pain/Comfort- Improve/Maintain Start: 09/08/18 02:20 Freq: QSHIFT Status: Active Target: Protocol: Activity Type Activity Date Activity User E-Sign Co-Sign Detail Recorded Client Recorded Date Recorded By Document 09/11/18 02:55 [id number] 09/11/18 02:56 [id number] 09/11/18 02:55 PMRU Outcome: Pain/Comfort Outcome/Goals Demonstrates Knowledge and Use of Available Comfort Measures Progression Toward Outcome/Goals Progressing Outcome/Goals Met Comment pt declined interventions Safety- Improve/Maintain Start: 09/07/18 15:41 Freq: DAILY@0400,1600 Status: Complete Target: Protocol: Activity Type Activity Date Activity User E-Sign Co-Sign Detail Recorded Client Recorded Date Recorded By Document 09/07/18 22:25 [id number] 09/07/18 22:26 [id number] 09/07/18 22:25 Outcome: Safety Outcome/Goals Remain Free of Injury or Harm Cooperates with Safety Measures for Least Restrictive Environment Safety- Improve/Maintain Start: 09/08/18 02:20 Freq: QSHIFT Status: Active Target: Protocol: Activity Type Activity Date Activity User E-Sign Co-Sign Detail Recorded Client Recorded Date Recorded By Document 09/11/18 02:55 [id number] [email or web address] 09/11/18 02:56 [id number] 09/11/18 02:55 PMRU Outcome: Safety Outcome/Goals Remain Free of Injury or Harm Progression Toward Outcome/Goals Progressing Outcome/Goals Met Comment CHANEL craig Skin-Improve/Maintain Start: 09/07/18 15:41 Freq: DAILY@0400,1600 Status: Complete Target: Protocol: Activity Type Activity Date Activity User E-Sign Co-Sign Detail Recorded Client Recorded Date Recorded By Document 09/07/18 22:25 [id number] [email or web address] 09/07/18 22:26 [id number] 09/07/18 22:25 Outcome: Skin Outcome/Goals Maintain/ Improve Skin Intergrity Free from Decubitus Surgical Incisions Healing Medicine Note: Length of Stay: 1 week Anticipated Discharge Destination: Home Tentative Discharge Date: 09/18/18 Discharged to: Home
[2018-09-11] MEDS: QUEtiapine TAB* 25 MG PO SCH ×3 (18:44→22:23)
--- NOTE | 2018-09-11 19:22 | PN ---
Progress Note Date of Service: 09/11/18 Note: SHARLENE GANT was visited. Therapy notes read and reviewed. He was discussed in interdisciplinary team rounds. He had a BM today with some clots. I spoke with surgery and will keep watching. Doing ok with therapies Current Medications: Active Medications Generic Name Dose Route Start Last Admin Trade Name Freq PRN Reason Stop Dose Admin Acetaminophen 650 mg 09/08/18 10:39 Tylenol Tab* PO Q4H PRN T>101, mild abdomen pain Amantadine HCl 100 mg 09/08/18 09:00 09/11/18 09:55 Symmetrel Cap* PO 100 mg DAILY RAYSHAWN Administration Benztropine Mesylate 1 mg 09/07/18 10:48 09/09/18 18:51 Cogentin Tab* PO 1 mg QID PRN Administration AGITATION Carbidopa/Levodopa 0.5 tab 09/09/18 12:00 09/11/18 12:07 Sinemet 25/100 Tab(*) PO 0.5 tab 0700,1200,2000 RAYSHAWN Administration Docusate Sodium 100 mg 09/07/18 21:00 09/11/18 09:55 Colace Cap* PO 100 mg BID RAYSHAWN Administration Famotidine 20 mg 09/08/18 09:00 09/11/18 09:55 Pepcid Tab* PO 20 mg DAILY RAYSHAWN Administration Fluphenazine HCl 10 mg 09/08/18 09:00 09/11/18 09:55 Prolixin Tab* PO 10 mg DAILY RAYSHAWN Administration Heparin Sodium (Porcine) 5,000 units 09/07/18 21:00 09/11/18 09:55 Heparin Vial(*) SUBCUT 5,000 units Q12HR RAYSHAWN Administration Lorazepam 1 mg 09/07/18 10:47 09/11/18 03:23 Ativan Tab(*) PO 1 mg TID PRN Administration ANXIETY Oxycodone/Acetaminophen 1 tab 09/08/18 10:38 Percocet 5/325 Tab* PO Q6H PRN mod to severe abdominal pain Polyethylene Glycol/Electrolytes 17 gm 09/08/18 09:00 09/11/18 09:56 Miralax* PO 17 gm DAILY RAYSHAWN Administration Quetiapine Fumarate 25 mg 09/07/18 21:30 09/11/18 18:44 Seroquel Tab* PO 25 mg 1900,2100,2300 RAYSHAWN Administration Sertraline HCl 150 mg 09/08/18 09:00 09/11/18 09:56 Zoloft* PO 150 mg DAILY RAYSHAWN Administration Vital Signs: Vital Signs Temp Pulse Resp BP Pulse Ox 97.3 F 88 18 129/111 97 09/11/18 16:15 09/11/18 16:15 09/11/18 16:15 09/11/18 16:15 09/11/18 16:15 Exam: GENERAL: no acute distress. alert and appropriate. LUNGS: clear to auscultation bilaterally. HEART: regular rate and rhythm ABDOMEN: + bowel sounds, soft, non-tender, non-distended. Ecchymoses as before. EXTREMITIES: no edema. NEUROLOGIC: Tremors x4 ext. Motor 5/5 BUE/BLE. Normal sensation. Assessment/Plan: 62-year-old man with Parkinson's disease exacerbation in the setting of sigmoid volvulus status post sigmoid colectomy with primary anastomosis. 1. Status post sigmoid volvulus and sigmoid colectomy with primary anastomosis. Daily miralax and colace. F/U with Dr. Fitzpatrick. 15 pound lifting limit for 3 weeks. Soft diet. PT/OT 2. Parkinson's disease. Sinemet/amantadine. PT/OT. 3. Schizophrenia. Cogentin prn for agitation. Ativan prn for anxiety. On Zoloft, fluphanzine, Seroquel. 4. Prediabetes. consistent carbohydrate diet. Restart metformin when adequate PO. He was only taking 250mg per day at home. 5. DVT prophylaxis. TEDs and subcutaneous heparin 5000u Q12h ok per surgery. 6. Impaired cognition. Speech therapy 7. Advance directives. He is a full code. If he cannot make decisions for himself, his , Noemí Rolle is his healthcare proxy. 8. Estimated LOS: 09/1809/11/18 19:22
[2018-09-12] MEDS: Carbidopa/Levodop 25/100 MG TAB(*) PO SCH ×3 (06:07→19:18)
[2018-09-12] MEDS: LORazepam TAB(*) 1 MG PO PRN (08:22)
[2018-09-12] MEDS: Famotidine TAB* 20 MG PO SCH (08:25)
[2018-09-12] MEDS: Amantadine CAP* 100 MG PO SCH (08:25)
[2018-09-12] MEDS: Docusate CAP* 100 MG PO SCH ×2 (08:25→21:04)
[2018-09-12] MEDS: Sertraline* 50 MG TAB PO SCH (08:25)
[2018-09-12] MEDS: Polyethylene Glycol 3350* 17 GM PACKET PO SCH (08:25)
[2018-09-12] MEDS: Heparin VIAL(*) 5000 UNITS/ML VIAL (FIVE THOUSAND) SUBCUT SCH ×2 (08:25→21:05)
--- NOTE | 2018-09-12 18:27 | PN ---
Progress Note Date of Service: 09/12/18 Note: ADRIEL GANT was visited. Therapy notes read and reviewed. I spoke with his and she emphasized moving Prolixin dose to two hours after last Sinemet dose. Adriel is otherwise doing ok. Current Medications: Active Medications Generic Name Dose Route Start Last Admin Trade Name Freq PRN Reason Stop Dose Admin Acetaminophen 650 mg 09/08/18 10:39 Tylenol Tab* PO Q4H PRN T>101, mild abdomen pain Amantadine HCl 100 mg 09/08/18 09:00 09/12/18 08:25 Symmetrel Cap* PO 100 mg DAILY RAYSHAWN Administration Benztropine Mesylate 1 mg 09/07/18 10:48 09/09/18 18:51 Cogentin Tab* PO 1 mg QID PRN Administration AGITATION Carbidopa/Levodopa 0.5 tab 09/12/18 19:00 Sinemet 25/100 Tab(*) PO 0700,1200,1900 RAYSHAWN Docusate Sodium 100 mg 09/07/18 21:00 09/12/18 08:25 Colace Cap* PO 100 mg BID RAYSHAWN Administration Famotidine 20 mg 09/08/18 09:00 09/12/18 08:25 Pepcid Tab* PO 20 mg DAILY RAYSHAWN Administration Fluphenazine HCl 10 mg 09/12/18 21:00 Prolixin Tab* PO BEDTIME RAYSHAWN Heparin Sodium (Porcine) 5,000 units 09/07/18 21:00 09/12/18 08:25 Heparin Vial(*) SUBCUT 5,000 units Q12HR RAYSHAWN Administration Lorazepam 1 mg 09/07/18 10:47 09/12/18 08:22 Ativan Tab(*) PO 1 mg TID PRN Administration ANXIETY Oxycodone/Acetaminophen 1 tab 09/08/18 10:38 Percocet 5/325 Tab* PO Q6H PRN mod to severe abdominal pain Polyethylene Glycol/Electrolytes 17 gm 09/08/18 09:00 09/12/18 08:25 Miralax* PO 17 gm DAILY RAYSHAWN Administration Quetiapine Fumarate 25 mg 09/07/18 21:30 09/11/18 22:23 Seroquel Tab* PO 25 mg 1900,2100,2300 RAYSHAWN Administration Sertraline HCl 150 mg 09/08/18 09:00 09/12/18 08:25 Zoloft* PO 150 mg DAILY RAYSHAWN Administration Vital Signs: Vital Signs Temp Pulse Resp BP Pulse Ox 97.7 F 78 14 129/85 98 09/12/18 06:00 09/12/18 06:00 09/12/18 11:25 09/12/18 06:00 09/12/18 08:00 Exam: GENERAL: no acute distress. alert and appropriate. LUNGS: clear to auscultation bilaterally. HEART: regular rate and rhythm ABDOMEN: + bowel sounds, soft, non-tender, non-distended. Ecchymoses as before. EXTREMITIES: no edema. NEUROLOGIC: Tremors x4 ext. Motor 5/5 BUE/BLE. Normal sensation. Assessment/Plan: 62-year-old man with Parkinson's disease exacerbation in the setting of sigmoid volvulus status post sigmoid colectomy with primary anastomosis. 1. Status post sigmoid volvulus and sigmoid colectomy with primary anastomosis. Daily miralax and colace. F/U with Dr. Fitzpatrick. 15 pound lifting limit for 3 weeks. Soft diet. PT/OT 2. Parkinson's disease. Sinemet/amantadine. PT/OT. 3. Schizophrenia. Cogentin prn for agitation. Ativan prn for anxiety. On Zoloft, fluphanzine, Seroquel. Prolixin should not be given within 2 hours of Sinemet 4. Prediabetes. consistent carbohydrate diet. Restart metformin when adequate PO. He was only taking 250mg per day at home. 5. DVT prophylaxis. TEDs and subcutaneous heparin 5000u Q12h ok per surgery. 6. Impaired cognition. Speech therapy 7. Advance directives. He is a full code. If he cannot make decisions for himself, his , Noemí Rolle is his healthcare proxy. 8. Estimated LOS: 8/09/12/18 18:27 09/12/18 18:28
[2018-09-12] MEDS: QUEtiapine TAB* 25 MG PO SCH ×3 (19:19→23:04)
[2018-09-12] MEDS ORDERED: fluPHENAZine HCL TAB* 5 MG PO SCH (21:00)
[2018-09-12] MEDS: fluPHENAZine HCL TAB* 5 MG PO SCH (21:05)
[2018-09-13] MEDS: Carbidopa/Levodop 25/100 MG TAB(*) PO SCH ×3 (06:45→19:20)
[2018-09-13] MEDS: Famotidine TAB* 20 MG PO SCH (09:10)
[2018-09-13] MEDS: Docusate CAP* 100 MG PO SCH (09:10)
[2018-09-13] MEDS: Heparin VIAL(*) 5000 UNITS/ML VIAL (FIVE THOUSAND) SUBCUT SCH ×2 (09:10→21:16)
[2018-09-13] MEDS: Amantadine CAP* 100 MG PO SCH (09:10)
[2018-09-13] MEDS: Polyethylene Glycol 3350* 17 GM PACKET PO SCH (09:11)
[2018-09-13] MEDS: LORazepam TAB(*) 1 MG PO PRN (09:11)
[2018-09-13] MEDS: Sertraline* 50 MG TAB PO SCH (09:11)
--- NOTE | 2018-09-13 13:59 | PN ---
Progress Note - Progress Note Date of Service: 09/13/18 Note: Surgery Progress: S: POD#9. States that he is doing well from the surgical standpoint, though is frustrated with his current neuropsych status (Parkinson's and schizophrenia). His appetite is good and his intake sounds adequate. He is drinking 1-2 protein shakes per day as well. BMs are soft with minimal form, 3-4x/d. States that they are dark. Denies any abd pain. O: Vital Signs - 8 hr 09/13/18 09/13/18 09/13/18 06:50 08:00 09:11 Temperature 97.2 F Pulse Rate 81 Respiratory 16 14 14 Rate Blood Pressure 132/90 (mmHg) O2 Sat by Pulse 98 98 Oximetry 09/13/18 11:59 Temperature Pulse Rate Respiratory 14 Rate Blood Pressure (mmHg) O2 Sat by Pulse Oximetry Intake and Output Last 24 Hours 09/11/18 09/12/18 09/13/18 09/14/18 06:59 06:59 06:59 06:59 Intake Total 240 570 300 350 Output Total 1150 465 Balance -910 105 300 350 Intake: Oral 240 570 300 350 Output: Urine 1150 465 Other: Estimated Void Large Medium Medium Large # Bowel Movements 1 1 1 1 Estimated Stool Amount Medium Medium Large Medium # Voids 1 1 1 1 Gen: sitting up in chair, NAD, but significant tremors Abd: incisions continue to heal well; resolving ecchymosis; no palp hematoma; no palp tenderness. A: s/p open sigmoid colectomy for sigmoid volvulus, doing well from surgical standpoint Laboratory Tests 09/08/18 09/09/18 09/10/18 04:35 05:37 05:33 Hgb 9.0 L 10.0 L Hct 25 L 28 L Albumin 3.1 L 09/10/18 05:33 Hgb Hct Albumin 3.6 P: will change Miralax and Colace to prn as he is currently having multiple, loose stools per day. Will try to recheck early next wk prior to d/c.
[2018-09-13] MEDS ORDERED: Docusate CAP* 100 MG PO PRN (14:02)
[2018-09-13] MEDS ORDERED: Polyethylene Glycol 3350* 17 GM PACKET PO PRN (14:02)
[2018-09-13] MEDS: QUEtiapine TAB* 25 MG PO SCH ×3 (19:20→23:30)
--- NOTE | 2018-09-13 19:27 | PN ---
Progress Note Date of Service: 09/13/18 Note: SHARLENE GANT was visited. Therapy notes read and reviewed. Appreciate surgery followup. He has no complaints other than some loose stools. Current Medications: Active Medications Generic Name Dose Route Start Last Admin Trade Name Freq PRN Reason Stop Dose Admin Acetaminophen 650 mg 09/08/18 10:39 Tylenol Tab* PO Q4H PRN T>101, mild abdomen pain Amantadine HCl 100 mg 09/08/18 09:00 09/13/18 09:10 Symmetrel Cap* PO 100 mg DAILY RAYSHAWN Administration Benztropine Mesylate 1 mg 09/07/18 10:48 09/09/18 18:51 Cogentin Tab* PO 1 mg QID PRN Administration AGITATION Carbidopa/Levodopa 0.5 tab 09/12/18 19:00 09/13/18 19:20 Sinemet 25/100 Tab(*) PO 0.5 tab 0700,1200,1900 RAYSHAWN Administration Docusate Sodium 100 mg 09/13/18 14:02 Colace Cap* PO BID PRN CONSTIPATION Famotidine 20 mg 09/08/18 09:00 09/13/18 09:10 Pepcid Tab* PO 20 mg DAILY RAYSHAWN Administration Fluphenazine HCl 10 mg 09/12/18 21:00 09/12/18 21:05 Prolixin Tab* PO 10 mg BEDTIME RAYSHAWN Administration Heparin Sodium (Porcine) 5,000 units 09/07/18 21:00 09/13/18 09:10 Heparin Vial(*) SUBCUT 5,000 units Q12HR RAYSHAWN Administration Lorazepam 1 mg 09/07/18 10:47 09/13/18 09:11 Ativan Tab(*) PO 1 mg TID PRN Administration ANXIETY Oxycodone/Acetaminophen 1 tab 09/08/18 10:38 Percocet 5/325 Tab* PO Q6H PRN mod to severe abdominal pain Polyethylene Glycol/Electrolytes 17 gm 09/13/18 14:02 Miralax* PO DAILY PRN CONSTIPATION Quetiapine Fumarate 25 mg 09/07/18 21:30 09/13/18 19:20 Seroquel Tab* PO 25 mg 1900,2100,2300 RAYSHAWN Administration Sertraline HCl 150 mg 09/08/18 09:00 09/13/18 09:11 Zoloft* PO 150 mg DAILY RAYSHAWN Administration Vital Signs: Vital Signs Temp Pulse Resp BP Pulse Ox 98.1 F 86 24 129/80 98 09/13/18 17:09 09/13/18 17:09 09/13/18 17:09 09/13/18 17:09 09/13/18 17:09 Exam: GENERAL: no acute distress. alert and appropriate. LUNGS: clear to auscultation bilaterally. HEART: regular rate and rhythm ABDOMEN: + bowel sounds, soft, non-tender, non-distended. Ecchymoses as before. EXTREMITIES: no edema. NEUROLOGIC: Tremors x4 ext. Motor 5/5 BUE/BLE. Normal sensation. Assessment/Plan: 62-year-old man with Parkinson's disease exacerbation in the setting of sigmoid volvulus status post sigmoid colectomy with primary anastomosis. 1. Status post sigmoid volvulus and sigmoid colectomy with primary anastomosis. F/U with Dr. Fitzpatrick. 15 pound lifting limit for 3 weeks. Soft diet. PT/OT 2. Parkinson's disease. Sinemet/amantadine. PT/OT. 3. Schizophrenia. Cogentin prn for agitation. Ativan prn for anxiety. On Zoloft, fluphanzine, Seroquel. Prolixin should not be given within 2 hours of Sinemet 4. Prediabetes. consistent carbohydrate diet. Restart metformin when adequate PO. He was only taking 250mg per day at home. 5. DVT prophylaxis. TEDs and subcutaneous heparin 5000u Q12h ok per surgery. 6. Impaired cognition. Speech therapy 7. Advance directives. He is a full code. If he cannot make decisions for himself, his , Noemí Rolle is his healthcare proxy. 8. Estimated LOS: 09/1809/13/18 19:28
[2018-09-13] MEDS: fluPHENAZine HCL TAB* 5 MG PO SCH (21:15)
[2018-09-14] MEDS: Carbidopa/Levodop 25/100 MG TAB(*) PO SCH ×3 (06:22→18:48)
[2018-09-14] MEDS: LORazepam TAB(*) 1 MG PO PRN ×2 (06:23→14:35)
[2018-09-14] MEDS: Famotidine TAB* 20 MG PO SCH (10:06)
[2018-09-14] MEDS: Sertraline* 50 MG TAB PO SCH (10:06)
[2018-09-14] MEDS: Amantadine CAP* 100 MG PO SCH (10:06)
[2018-09-14] MEDS: Heparin VIAL(*) 5000 UNITS/ML VIAL (FIVE THOUSAND) SUBCUT SCH ×2 (10:06→22:03)
--- NOTE | 2018-09-14 16:11 | PN ---
Progress Note Date of Service: 09/14/18 Note: SHARLENE GANT was visited. Therapy notes read and reviewed. I discussed his case with his neurologist, Dr. Horton. He is having a lot of trouble with tremors and I think he might benefit from an increase in his Sinemet dose. Dr. Horton agrees but suggests a slow increase. Will increase his 7 am dose to a whole tablet, leave 0.5 tabs at 1200 and 1900. Current Medications: Active Medications Generic Name Dose Route Start Last Admin Trade Name Freq PRN Reason Stop Dose Admin Acetaminophen 650 mg 09/08/18 10:39 Tylenol Tab* PO Q4H PRN T>101, mild abdomen pain Amantadine HCl 100 mg 09/08/18 09:00 09/14/18 10:06 Symmetrel Cap* PO 100 mg DAILY RAYSHAWN Administration Benztropine Mesylate 1 mg 09/07/18 10:48 09/09/18 18:51 Cogentin Tab* PO 1 mg QID PRN Administration AGITATION Carbidopa/Levodopa 0.5 tab 09/14/18 19:00 Sinemet 25/100 Tab(*) PO 1200,1900 RAYSHAWN Carbidopa/Levodopa 1 tab 09/15/18 07:00 Sinemet 25/100 Tab(*) PO 0700 RAYSHAWN Docusate Sodium 100 mg 09/13/18 14:02 Colace Cap* PO BID PRN CONSTIPATION Famotidine 20 mg 09/08/18 09:00 09/14/18 10:06 Pepcid Tab* PO 20 mg DAILY RAYSHAWN Administration Fluphenazine HCl 10 mg 09/12/18 21:00 09/13/18 21:15 Prolixin Tab* PO 10 mg BEDTIME RAYSHAWN Administration Heparin Sodium (Porcine) 5,000 units 09/07/18 21:00 09/14/18 10:06 Heparin Vial(*) SUBCUT 5,000 units Q12HR RAYSHAWN Administration Lorazepam 1 mg 09/07/18 10:47 09/14/18 14:35 Ativan Tab(*) PO 1 mg TID PRN Administration ANXIETY Oxycodone/Acetaminophen 1 tab 09/08/18 10:38 Percocet 5/325 Tab* PO Q6H PRN mod to severe abdominal pain Polyethylene Glycol/Electrolytes 17 gm 09/13/18 14:02 Miralax* PO DAILY PRN CONSTIPATION Quetiapine Fumarate 25 mg 09/07/18 21:30 09/13/18 23:30 Seroquel Tab* PO Not Given 1900,2100,2300 RAYSHAWN Sertraline HCl 150 mg 09/08/18 09:00 09/14/18 10:06 Zoloft* PO 150 mg DAILY RAYSHAWN Administration Vital Signs: Vital Signs Temp Pulse Resp BP Pulse Ox 97.4 F 80 16 140/97 97 09/14/18 06:10 09/14/18 06:10 09/14/18 14:35 09/14/18 06:10 09/14/18 08:30 Exam: GENERAL: no acute distress. alert and appropriate. LUNGS: clear to auscultation bilaterally. HEART: regular rate and rhythm ABDOMEN: + bowel sounds, soft, non-tender, non-distended. Ecchymoses as before. EXTREMITIES: no edema. NEUROLOGIC: Tremors x4 ext. Motor 5/5 BUE/BLE. Normal sensation. Assessment/Plan: 62-year-old man with Parkinson's disease exacerbation in the setting of sigmoid volvulus status post sigmoid colectomy with primary anastomosis. 1. Status post sigmoid volvulus and sigmoid colectomy with primary anastomosis. F/U with Dr. Fitzpatrick. 15 pound lifting limit for 3 weeks. Soft diet. PT/OT 2. Parkinson's disease. Sinemet/amantadine. PT/OT. Adjust Sinemet 3. Schizophrenia. Cogentin prn for agitation. Ativan prn for anxiety. On Zoloft, fluphanzine, Seroquel. Prolixin should not be given within 2 hours of Sinemet 4. Prediabetes. consistent carbohydrate diet. Restart metformin when adequate PO. He was only taking 250mg per day at home. 5. DVT prophylaxis. TEDs and subcutaneous heparin 5000u Q12h ok per surgery. 6. Impaired cognition. Speech therapy 7. Advance directives. He is a full code. If he cannot make decisions for himself, his , Noemí Rolle is his healthcare proxy. 8. Estimated LOS: 09/1809/14/18 16:11
[2018-09-14] MEDS: QUEtiapine TAB* 25 MG PO SCH ×3 (18:48→23:30)
[2018-09-14] MEDS: fluPHENAZine HCL TAB* 5 MG PO SCH (22:02)
[2018-09-15 01:58] LABS: Hepatitis B Surface Antigen Negative (Negative)
[2018-09-15 01:59] LABS: HIV 4th Generation Negative (Negative)
[2018-09-15 02:15] LABS: Hepatitis B Surface Ab Not Immune (Immune); Hepatitis C Antibody Negative (Negative)
[2018-09-15] MEDS: Carbidopa/Levodop 25/100 MG TAB(*) PO SCH ×3 (06:30→19:00)
[2018-09-15] MEDS: LORazepam TAB(*) 1 MG PO PRN ×3 (06:30→16:25)
[2018-09-15] MEDS: Famotidine TAB* 20 MG PO SCH (09:06)
[2018-09-15] MEDS: Sertraline* 50 MG TAB PO SCH (09:06)
[2018-09-15] MEDS: Amantadine CAP* 100 MG PO SCH (09:06)
[2018-09-15] MEDS: Heparin VIAL(*) 5000 UNITS/ML VIAL (FIVE THOUSAND) SUBCUT SCH ×2 (09:10→21:18)
[2018-09-15] MEDS ORDERED: oxyCODONE/Acetamin 5/325 MG* TAB PO PRN (12:06)
--- NOTE | 2018-09-15 14:25 | PN ---
Progress Note Date of Service: 09/15/18 Note: SHARLENE GANT was visited. Therapy notes read and reviewed. He was able to take a full Sinemet this am. If tolerated tomorrow will increase to a full tab at 7am and 12 noon. Still with tremors that are fairly disruptive Current Medications: Active Medications Generic Name Dose Route Start Last Admin Trade Name Freq PRN Reason Stop Dose Admin Acetaminophen 650 mg 09/08/18 10:39 Tylenol Tab* PO Q4H PRN T>101, mild abdomen pain Amantadine HCl 100 mg 09/08/18 09:00 09/15/18 09:06 Symmetrel Cap* PO 100 mg DAILY RAYSHAWN Administration Benztropine Mesylate 1 mg 09/07/18 10:48 09/09/18 18:51 Cogentin Tab* PO 1 mg QID PRN Administration AGITATION Carbidopa/Levodopa 0.5 tab 09/14/18 19:00 09/15/18 12:40 Sinemet 25/100 Tab(*) PO 0.5 tab 1200,1900 RAYSHAWN Administration Carbidopa/Levodopa 1 tab 09/15/18 07:00 09/15/18 06:30 Sinemet 25/100 Tab(*) PO 1 tab 0700 RAYSHAWN Administration Docusate Sodium 100 mg 09/13/18 14:02 Colace Cap* PO BID PRN CONSTIPATION Famotidine 20 mg 09/08/18 09:00 09/15/18 09:06 Pepcid Tab* PO 20 mg DAILY RAYSHAWN Administration Fluphenazine HCl 10 mg 09/12/18 21:00 09/14/18 22:02 Prolixin Tab* PO 10 mg BEDTIME RAYSHAWN Administration Heparin Sodium (Porcine) 5,000 units 09/07/18 21:00 09/15/18 09:10 Heparin Vial(*) SUBCUT 5,000 units Q12HR RAYSHAWN Administration Lorazepam 1 mg 09/07/18 10:47 09/15/18 12:43 Ativan Tab(*) PO 1 mg TID PRN Administration ANXIETY Oxycodone/Acetaminophen 1 tab 09/15/18 12:06 Percocet 5/325 Tab* PO Q6H PRN PAIN - SEVERE Polyethylene Glycol/Electrolytes 17 gm 09/13/18 14:02 Miralax* PO DAILY PRN CONSTIPATION Quetiapine Fumarate 25 mg 09/07/18 21:30 09/14/18 23:30 Seroquel Tab* PO Not Given 1900,2100,2300 RAYSHAWN Sertraline HCl 150 mg 09/08/18 09:00 09/15/18 09:06 Zoloft* PO 150 mg DAILY RAYSHAWN Administration Vital Signs: Vital Signs Temp Pulse Resp BP Pulse Ox 98.7 F 84 20 136/72 95 09/15/18 04:48 09/15/18 04:48 09/15/18 12:43 09/15/18 04:48 09/15/18 08:00 Lab Results: Laboratory Results - last 24 hr 09/15/18 00:53 Hepatitis B Antibody Not immune A Hep Bs Antigen Negative Hepatitis C Antibody Negative Hepatitis C Ab Index 0.01 HIV 1&2 Ab/P24 Ag 4thGn Negative Exam: GENERAL: no acute distress. alert and appropriate. LUNGS: clear to auscultation bilaterally. HEART: regular rate and rhythm ABDOMEN: + bowel sounds, soft, non-tender, non-distended. Ecchymoses as before. EXTREMITIES: no edema. NEUROLOGIC: Tremors x4 ext. Motor 5/5 BUE/BLE. Normal sensation. Assessment/Plan: 62-year-old man with Parkinson's disease exacerbation in the setting of sigmoid volvulus status post sigmoid colectomy with primary anastomosis. 1. Status post sigmoid volvulus and sigmoid colectomy with primary anastomosis. F/U with Dr. Fitzpatrick. 15 pound lifting limit for 3 weeks. Soft diet. PT/OT 2. Parkinson's disease. Sinemet/amantadine. PT/OT. Adjust Sinemet 3. Schizophrenia. Cogentin prn for agitation. Ativan prn for anxiety. On Zoloft, fluphanzine, Seroquel. Prolixin should not be given within 2 hours of Sinemet 4. Prediabetes. consistent carbohydrate diet. Restart metformin when adequate PO. He was only taking 250mg per day at home. 5. DVT prophylaxis. TEDs and subcutaneous heparin 5000u Q12h ok per surgery. 6. Impaired cognition. Speech therapy 7. Advance directives. He is a full code. If he cannot make decisions for himself, his , Noemí Rolle is his healthcare proxy. 8. Estimated LOS: 09/1809/15/18 14:25
[2018-09-15] MEDS: QUEtiapine TAB* 25 MG PO SCH ×2 (18:36→21:16)
[2018-09-15] MEDS: guaiFENesin LIQ* 100 MG/5 ML UDC PO PRN (18:37)
[2018-09-15] MEDS: Acetaminophen TAB* 325 MG PO PRN (19:21)
[2018-09-15] MEDS: fluPHENAZine HCL TAB* 5 MG PO SCH (21:15)
[2018-09-16] MEDS: QUEtiapine TAB* 25 MG PO SCH ×3 (00:13→21:07)
[2018-09-16] MEDS: guaiFENesin LIQ* 100 MG/5 ML UDC PO PRN ×3 (00:15→21:10)
[2018-09-16 04:54] LABS: ABS Lymphocytes 1.1 10^3/ul (1.0-4.8); ABS Monocytes 0.4 10^3/ul (0-0.8); Eosinophil % 0.6 %; Hematocrit 28 % (42-52); Hemoglobin 9.7 g/dL (14.0-18.0); Mean Corpuscular HGB Conc 35 g/dL (31-36); Mean Corpuscular Hemoglobin 33 pg (27-31); Mean Corpuscular Volume 95 fL (80-94); Mean Platelet Volume 5.9 fL (7.4-10.4); Platelet Count 291 10^3/uL (150-450); Red Blood Count 2.92 10^6 /uL (4.18-5.48); Red Cell Distribution Width 15 % (10-15); White Blood Count 7.6 10^3/uL (3.5-10.8)
[2018-09-16] MEDS: Carbidopa/Levodop 25/100 MG TAB(*) PO SCH ×3 (06:49→19:09)
[2018-09-16] MEDS: Heparin VIAL(*) 5000 UNITS/ML VIAL (FIVE THOUSAND) SUBCUT SCH ×2 (08:02→21:11)
[2018-09-16] MEDS: Sertraline* 50 MG TAB PO SCH (08:02)
[2018-09-16] MEDS: Famotidine TAB* 20 MG PO SCH (08:03)
[2018-09-16] MEDS: LORazepam TAB(*) 1 MG PO PRN ×2 (08:03→13:56)
[2018-09-16] MEDS: Amantadine CAP* 100 MG PO SCH (08:03)
[2018-09-16] MEDS: Acetaminophen TAB* 325 MG PO PRN (16:00)
--- NOTE | 2018-09-16 16:31 | PN ---
Progress Note Date of Service: 09/16/18 Note: SHARLENE GANT was visited. Therapy notes read and reviewed. He has had a slightly productive cough. He spiked a fever last night and had a slightly elevated WBC. Had a CXR yesterday that was negative for I/E. He has had a sputum culture ordered by Dr. Vail that shows some gram + cocci. Given his frailty from Parkinson's and his increased tremors, will start Augmentin for probable bronchitis. Current Medications: Active Medications Generic Name Dose Route Start Last Admin Trade Name Freq PRN Reason Stop Dose Admin Acetaminophen 650 mg 09/08/18 10:39 09/16/18 16:00 Tylenol Tab* PO 650 mg Q4H PRN Administration T>101, mild abdomen pain Amantadine HCl 100 mg 09/08/18 09:00 09/16/18 08:03 Symmetrel Cap* PO 100 mg DAILY RAYSHAWN Administration Benztropine Mesylate 1 mg 09/07/18 10:48 09/09/18 18:51 Cogentin Tab* PO 1 mg QID PRN Administration AGITATION Carbidopa/Levodopa 0.5 tab 09/14/18 19:00 09/16/18 12:20 Sinemet 25/100 Tab(*) PO 0.5 tab 1200,1900 RAYSHAWN Administration Carbidopa/Levodopa 1 tab 09/15/18 07:00 09/16/18 06:49 Sinemet 25/100 Tab(*) PO 1 tab 0700 RAYSHAWN Administration Docusate Sodium 100 mg 09/13/18 14:02 Colace Cap* PO BID PRN CONSTIPATION Famotidine 20 mg 09/08/18 09:00 09/16/18 08:03 Pepcid Tab* PO 20 mg DAILY RAYSHAWN Administration Fluphenazine HCl 10 mg 09/12/18 21:00 09/15/18 21:15 Prolixin Tab* PO 10 mg BEDTIME RAYSHAWN Administration Guaifenesin 5 ml 09/15/18 16:41 09/16/18 08:02 Robitussin* PO 5 ml Q6H PRN Administration COUGH Heparin Sodium (Porcine) 5,000 units 09/07/18 21:00 09/16/18 08:02 Heparin Vial(*) SUBCUT 5,000 units Q12HR RAYSHAWN Administration Lorazepam 1 mg 09/07/18 10:47 09/16/18 13:56 Ativan Tab(*) PO 1 mg TID PRN Administration ANXIETY Oxycodone/Acetaminophen 1 tab 09/15/18 12:06 Percocet 5/325 Tab* PO Q6H PRN PAIN - SEVERE Polyethylene Glycol/Electrolytes 17 gm 09/13/18 14:02 Miralax* PO DAILY PRN CONSTIPATION Quetiapine Fumarate 25 mg 09/07/18 21:30 09/16/18 00:13 Seroquel Tab* PO 25 mg 1900,2100,2300 RAYSHAWN Administration Sertraline HCl 150 mg 09/08/18 09:00 09/16/18 08:02 Zoloft* PO 150 mg DAILY RAYSHAWN Administration Vital Signs: Vital Signs Temp Pulse Resp BP Pulse Ox 97.4 F 80 18 129/70 99 09/16/18 04:38 09/16/18 04:38 09/16/18 13:56 09/16/18 04:38 09/16/18 08:00 Lab Results: Laboratory Results - last 24 hr 09/16/18 04:47 WBC 7.6 RBC 2.92 L Hgb 9.7 L Hct 28 L MCV 95 H MCH 33 H MCHC 35 RDW 15 Plt Count 291 MPV 5.9 L Neut % (Auto) 79.0 Lymph % (Auto) 14.0 [place] % (Auto) 5.8 Eos % (Auto) 0.6 Baso % (Auto) 0.6 Absolute Neuts (auto) 6.0 Absolute Lymphs (auto) 1.1 Absolute Monos (auto) 0.4 Absolute Eos (auto) 0.0 Absolute Basos (auto) 0.0 Absolute Nucleated RBC 0.0 Nucleated RBC % 0.0 Exam: GENERAL: no acute distress. alert and appropriate. LUNGS: scatttered ronchi . HEART: regular rate and rhythm ABDOMEN: + bowel sounds, soft, non-tender, non-distended. Ecchymoses as before. EXTREMITIES: no edema. NEUROLOGIC: Tremors x4 ext. Motor 5/5 BUE/BLE. Normal sensation. Assessment/Plan: 62-year-old man with Parkinson's disease exacerbation in the setting of sigmoid volvulus status post sigmoid colectomy with primary anastomosis. 1. Status post sigmoid volvulus and sigmoid colectomy with primary anastomosis. F/U with Dr. Fitzpatrick. 15 pound lifting limit for 3 weeks. Soft diet. PT/OT 2. Parkinson's disease. Sinemet/amantadine. PT/OT. Adjust Sinemet 3. Schizophrenia. Cogentin prn for agitation. Ativan prn for anxiety. On Zoloft, fluphanzine, Seroquel. Prolixin should not be given within 2 hours of Sinemet 4. Prediabetes. consistent carbohydrate diet. Restart metformin when adequate PO. He was only taking 250mg per day at home. 5. DVT prophylaxis. TEDs and subcutaneous heparin 5000u Q12h ok per surgery. 6. Impaired cognition. Speech therapy 7. Advance directives. He is a full code. If he cannot make decisions for himself, his , Noemí Rolle is his healthcare proxy. 8. Putative bronchitis: Augmentin. F/U sputum cultures 09/16/18 16:31
[2018-09-16] MEDS: Amoxicillin/Clavulanate TAB* 875 MG PO SCH (21:07)
[2018-09-16] MEDS: fluPHENAZine HCL TAB* 5 MG PO SCH (21:07)
[2018-09-17] MEDS: QUEtiapine TAB* 25 MG PO SCH ×4 (00:33→23:02)
[2018-09-17] MEDS: Carbidopa/Levodop 25/100 MG TAB(*) PO SCH ×3 (05:46→19:15)
[2018-09-17 05:48] LABS: ABS Eosinophils 0.2 10^3/ul (0-0.6); ABS Lymphocytes 1.2 10^3/ul (1.0-4.8); ABS Monocytes 0.4 10^3/ul (0-0.8); ABS Neutrophils 4.2 10^3/ul (1.5-7.7); Eosinophil % 2.8 %; Hematocrit 26 % (42-52); Hemoglobin 9.1 g/dL (14.0-18.0); Lymphocyte % 19.9 %; Mean Corpuscular HGB Conc 36 g/dL (31-36); Mean Corpuscular Hemoglobin 34 pg (27-31); Mean Corpuscular Volume 95 fL (80-94); Mean Platelet Volume 5.9 fL (7.4-10.4); Platelet Count 279 10^3/uL (150-450); Red Blood Count 2.72 10^6 /uL (4.18-5.48); Red Cell Distribution Width 15 % (10-15); White Blood Count 5.9 10^3/uL (3.5-10.8)
[2018-09-17 06:06] LABS: Albumin 3.3 g/dL (3.2-5.2); Albumin/Globulin Ratio 1.4 (1-3); BUN/Creatinine Ratio 27.5 (8-20); C Reactive Protein 128.12 mg/L (<8.01); Calcium 8.4 mg/dL (8.6-10.3); EGFR African American 118.5 (>60); Globulin 2.4 g/dL (2-4); Potassium 4.3 mmol/L (3.5-5.0); Total Bilirubin 0.7 mg/dL (0.2-1.0); Total Protein 5.7 g/dL (6.4-8.9)
[2018-09-17] MEDS: LORazepam TAB(*) 1 MG PO PRN ×2 (06:20→14:45)
[2018-09-17] MEDS: Heparin VIAL(*) 5000 UNITS/ML VIAL (FIVE THOUSAND) SUBCUT SCH ×2 (08:43→21:40)
[2018-09-17] MEDS: Famotidine TAB* 20 MG PO SCH (08:43)
[2018-09-17] MEDS: Sertraline* 50 MG TAB PO SCH (08:43)
[2018-09-17] MEDS: Amantadine CAP* 100 MG PO SCH (08:43)
[2018-09-17] MEDS: Amoxicillin/Clavulanate TAB* 875 MG PO SCH ×2 (08:43→21:39)
[2018-09-17] MEDS: guaiFENesin LIQ* 100 MG/5 ML UDC PO PRN ×2 (08:47→14:46)
[2018-09-17] MEDS: Acetaminophen TAB* 325 MG PO PRN ×2 (13:06→18:18)
--- NOTE | 2018-09-17 16:03 | PN ---
Progress Note Date of Service: 09/17/18 Note: SHARLENE GANT was visited. Therapy notes read and reviewed. Tolerating Augmentin and he thinks he is breathing a little easier. His tremors may be slightly improved. CRP elevated Current Medications: Active Medications Generic Name Dose Route Start Last Admin Trade Name Freq PRN Reason Stop Dose Admin Acetaminophen 650 mg 09/08/18 10:39 09/17/18 13:06 Tylenol Tab* PO 650 mg Q4H PRN Administration T>101, mild abdomen pain Amantadine HCl 100 mg 09/08/18 09:00 09/17/18 08:43 Symmetrel Cap* PO 100 mg DAILY RAYSHAWN Administration Amoxicillin/Clavulanate Potassium 875 mg 09/16/18 21:00 09/17/18 08:43 Augmentin Tab* PO 875 mg BID RAYSHAWN Administration Benztropine Mesylate 1 mg 09/07/18 10:48 09/09/18 18:51 Cogentin Tab* PO 1 mg QID PRN Administration AGITATION Carbidopa/Levodopa 0.5 tab 09/17/18 19:00 Sinemet 25/100 Tab(*) PO 1900 RAYSHAWN Carbidopa/Levodopa 1 tab 09/18/18 07:00 Sinemet 25/100 Tab(*) PO 0700,1200 RAYSHAWN Docusate Sodium 100 mg 09/13/18 14:02 Colace Cap* PO BID PRN CONSTIPATION Famotidine 20 mg 09/08/18 09:00 09/17/18 08:43 Pepcid Tab* PO 20 mg DAILY RAYSHAWN Administration Fluphenazine HCl 10 mg 09/12/18 21:00 09/16/18 21:07 Prolixin Tab* PO 10 mg BEDTIME RAYSHAWN Administration Guaifenesin 5 ml 09/15/18 16:41 09/17/18 14:46 Robitussin* PO 5 ml Q6H PRN Administration COUGH Heparin Sodium (Porcine) 5,000 units 09/07/18 21:00 09/17/18 08:43 Heparin Vial(*) SUBCUT 5,000 units Q12HR RAYSHAWN Administration Lorazepam 1 mg 09/07/18 10:47 09/17/18 14:45 Ativan Tab(*) PO 1 mg TID PRN Administration ANXIETY Oxycodone/Acetaminophen 1 tab 09/15/18 12:06 Percocet 5/325 Tab* PO Q6H PRN PAIN - SEVERE Polyethylene Glycol/Electrolytes 17 gm 09/13/18 14:02 Miralax* PO DAILY PRN CONSTIPATION Quetiapine Fumarate 25 mg 09/07/18 21:30 09/17/18 00:33 Seroquel Tab* PO 25 mg 1900,2100,2300 RAYSHAWN Administration Sertraline HCl 150 mg 09/08/18 09:00 09/17/18 08:43 Zoloft* PO 150 mg DAILY RAYSHAWN Administration Vital Signs: Vital Signs Temp Pulse Resp BP Pulse Ox 98.1 F 95 14 127/78 95 09/17/18 07:04 09/17/18 07:04 09/17/18 14:45 09/17/18 07:04 09/17/18 08:00 Lab Results: Laboratory Results - last 24 hr 09/17/18 09/17/18 05:36 05:36 WBC 5.9 RBC 2.72 L Hgb 9.1 L Hct 26 L MCV 95 H MCH 34 H MCHC 36 RDW 15 Plt Count 279 MPV 5.9 L Neut % (Auto) 70.7 Lymph % (Auto) 19.9 [place] % (Auto) 6.2 Eos % (Auto) 2.8 Baso % (Auto) 0.4 Absolute Neuts (auto) 4.2 Absolute Lymphs (auto) 1.2 Absolute Monos (auto) 0.4 Absolute Eos (auto) 0.2 Absolute Basos (auto) 0.0 Absolute Nucleated RBC 0.0 Nucleated RBC % 0.0 Sodium 135 Potassium 4.3 Chloride 102 Carbon Dioxide 28 Anion Gap 5 BUN 22 Creatinine 0.80 Est GFR ( Amer) 118.5 Est GFR (Non-Af Amer) 98.0 BUN/Creatinine Ratio 27.5 H Glucose 104 H Calcium 8.4 L Total Bilirubin 0.70 AST 20 ALT 23 Alkaline Phosphatase 77 C-Reactive Protein 128.12 H Total Protein 5.7 L Albumin 3.3 Globulin 2.4 Albumin/Globulin Ratio 1.4 Exam: GENERAL: no acute distress. alert and appropriate. LUNGS: scatttered ronchi . HEART: regular rate and rhythm ABDOMEN: + bowel sounds, soft, non-tender, non-distended. Ecchymoses as before. EXTREMITIES: no edema. NEUROLOGIC: Tremors x4 ext. Motor 5/5 BUE/BLE. Normal sensation. Assessment/Plan: 62-year-old man with Parkinson's disease exacerbation in the setting of sigmoid volvulus status post sigmoid colectomy with primary anastomosis. 1. Status post sigmoid volvulus and sigmoid colectomy with primary anastomosis. F/U with Dr. Fitzpatrick. 15 pound lifting limit for 3 weeks. Soft diet. PT/OT 2. Parkinson's disease. Sinemet/amantadine. PT/OT. Adjusted Sinemet to 1 tab at 0700, noon and 0.5 tab at 7pm 3. Schizophrenia. Cogentin prn for agitation. Ativan prn for anxiety. On Zoloft, fluphanzine, Seroquel. Prolixin should not be given within 2 hours of Sinemet 4. Prediabetes. consistent carbohydrate diet. Restart metformin when adequate PO. He was only taking 250mg per day at home. 5. DVT prophylaxis. TEDs and subcutaneous heparin 5000u Q12h ok per surgery. 6. Impaired cognition. Speech therapy 7. Advance directives. He is a full code. If he cannot make decisions for himself, his , Noemí Rolle is his healthcare proxy. 8. Putative bronchitis: Augmentin day 03/25. F/U sputum cultures 09/17/18 16:03 09/17/18 16:05
[2018-09-17] MEDS: Benztropine TAB* 1 MG PO PRN (18:18)
[2018-09-17] MEDS: fluPHENAZine HCL TAB* 5 MG PO SCH (21:40)
[2018-09-18] MEDS: LORazepam TAB(*) 1 MG PO PRN ×2 (05:17→23:57)
[2018-09-18] MEDS: Benztropine TAB* 1 MG PO PRN ×2 (05:58→23:57)
[2018-09-18] MEDS: Carbidopa/Levodop 25/100 MG TAB(*) PO SCH ×3 (06:37→19:15)
[2018-09-18] MEDS: Famotidine TAB* 20 MG PO SCH (08:30)
[2018-09-18] MEDS: Heparin VIAL(*) 5000 UNITS/ML VIAL (FIVE THOUSAND) SUBCUT SCH ×2 (08:30→21:29)
[2018-09-18] MEDS: Amantadine CAP* 100 MG PO SCH (08:30)
[2018-09-18] MEDS: Amoxicillin/Clavulanate TAB* 875 MG PO SCH ×2 (08:30→21:26)
[2018-09-18] MEDS: Sertraline* 50 MG TAB PO SCH (08:30)
--- NOTE | 2018-09-18 12:43 | PMRUTEAM ---
PMRU: Team Meeting Current Status: Nursing: Current Status Skin Deviations [Left Knee] Abrasion Skin Deviations [Left Elbow] Abrasion Skin Deviations [Abdomen] Incision Skin Deviation Description [ pt states from fall Left Knee] Skin Deviation Description [ pt states from fall Left Elbow] Skin Deviation Description [ healing. Bruises around incision fading Abdomen] Drain Type [Abdomen] None Bladder Current Status Continent - 1 assist with ambulation to the bathroom Bowel Current Status Continent - 1 assist with ambulation to the bathroom Nutrition Current Status Eats 100% of most meals Medication Current Status needs education with medication administration Physical Therapy: Current Status Bed Mobility Assistance Supervision Transfer Mobility Assistance Contact Guard Assist Transfer/Bed Mobility Rolling Walker Recommended Devices Ambulation Assistance Contact Guard Assist Ambulation Assistive Devices Rolling Walker Number of Feet Patient 1x150' Ambulated Stairs Assistance Supervision Stairs Recommended Devices Two Rails Number of Stairs 2x5 (10) Curb Not Tested Occupational Therapy: Current Status Upper Body Dressing Supervision Lower Body Dressing Mod Assist Bathing Min Assist Toileting Min Assist Toilet Transfer Min Assist Shower Transfer Min Assist Eating Supervision Rec Therapy: Current Status Summary of Assessment and Recreation Therapy services introduced and Clinical Impression assessment has been completed. Pt. is open to leisure visits and activities, interested in going outside. Pt. has been spending time with visitors in the afternoon. Radio has been provided for enjoyment and diversion. Treatment Goals Pt. will engage in leisure activities while on the unit. Treatment Plan Provide recreation therapy services and encourage involvement. Social Work: Current Status Discharge Plan return home with home care svs and family support Potential for Family Training pt's is scheduled for family training on 09/13 @ 10am Anticipated Discharge Home Destination Discharge With home care svs and family support Nutrition: Current Status Monitoring Pt adm to PMRU s/p sigmoid volvulus. He remains on consistent carb diet w/ soft textures. Noted some variability in intake; consumed 50% of D last PM and B this AM, however consuming 75-100% of meals on avg; will continue to encourage prioritization of proteins at meal times. Pt receiving Ensure Enlive w/ B, L, and at 15:00 daily; will continue to send and monitor acceptance. He continues to deny all GI s/sx (last BM 09/16 per chart). No pressure related skin breakdown per chart. Na+ 135 (improved); BG 104 this AM (appropriate); will continue to monitor labs. Recommend liberalizing diet to just soft to encourage greater po intake given pt's well-controlled BG and current wt status. Will continue to monitor and provide further nutrition intervention as indicated. Speech: Current Status Assessment Patient progressing well. Goals: Physical Therapy: Initial Goals Bed Mobility Assistance Independent Transfer Mobility Assistance Independent Transfer/Bed Mobility Rolling Walker Recommended Devices Ambulation Independent Ambulation Recommended Devices Rolling Walker Ambulation Distance 300 Stairs Assistance Independent Stair Recommended Devices Two Rails Number of Stairs 10 Physical Therapy: Updated Goals Transfer/Bed Mobility Rolling Walker Recommended Devices Occupational Therapy: Initial Goals Goals to be Completed in (Days 4-6 days ) Upper Body Bathing Routine Modified Independent with Lower Body Bathing Routine Modified Independent with Upper Body Dressing Routine Modified Independent with Lower Body Dressing Routine Modified Independent with Toilet Hygeine and Clothing Modified Independent with Management Routine Toilet Transfer Routine Modified Independent with Tub Transfer Routine Modified Independent with Functional Transfers for ADL Modified Independent with Grooming Routine Modified Independent with Feeding Routine Modified Independent with Nursing: Goals Bladder Goal Continent - independent with toileting Bowel Goal Continent - independent with toileting Nutrition Goal Eats 100% of all meals Medication Goal Independent with medication administration Nutrition: Goals Intervention Goals 1) Recommend liberalizing diet to just soft 2) Pt will tolerate least restricted dietary textures w/o difficulty chewing/swallowing 3) Adequate po intake to replete lean body mass and hydration status 4) Maintain fluid/electrolyte balance w/ adequate po intake 5) Maintain glycemic control w/ adequate po intake w/o further need for dietary restriction 6) Maintain bowel regularity w/ adequate po intake w/o development of diarrhea/constipation Speech: Goals Speech Goal 1 Voice and Motor Speech Speech Evaluation Status Goal Mild-moderate impairment 1 Goal 1 Comments Voice and Motor Speech Goals: Long-Term Goal: Pt will use compensatory strategies to increase vocal loudness to moderate and speech to intelligibility to 95-100%, in spontaneous conversational speech, Independently, as observed by therapists, nursing and medical staff. Status: Progressing well. Short-Term Goal: Pt will complete loud voice exercises and use compensatory strategies to increase vocal loudness to moderate and speech to intelligibility to 95%, in structured conversational speech, given skilled instruction, Moderate cueing, and extra time, as observed by therapists, nursing and medical staff. Status: Progressing well. *Cervical and facial stretching and relaxation: 100% accuracy, minimal-no verbal cues. *Diaphragmatic breath support: Independent *Sustained vowel phonation: Average sustained /a/ of 19 seconds with good vocal loudness and quality . *High pitch glides: Good vocal loudness and glide; however, with raspy quality at times due to acute respiratory illness. *Low pitch glides: Good vocal loudness and glide; however, with raspy quality at times due to acute respiratory illness. *Functional carry-over; reciprocal conversational speech: Good independent carry-over of all skills. Speech Goal 2 Problem Solving Speech Goal 2 Evaluation Mild-moderate impairment Status Speech Goal 2 Comments Problem Solving Goals: Long-Term Goal: Pt will use compensatory strategies to solve moderately complex routine problems, for transfer and mobility safety, adaptive dressing, time and money management; with 100% accuracy, Independently. Status: Progressing. Short-Term Goal: Pt will use compensatory strategies to solve simple routine problems, for transfer and mobility safety, adaptive dressing, time and money management; with 80% accuracy, given skilled instruction, Moderate cueing, and extra time. Status: Progressing. Patient was provided with verbal questions and discussion regarding home safety: Patient completed tasks with >95% accuracy, no cues. Patient dicussed his own home, functional safety scenarios with 100% safety responses, independently. Social Work: Goals Discharge Plan return home with home care svs and family support Potential for Family Training pt's is scheduled for family training on 09/13 @ 10am Anticipated Discharge Home Destination Discharge With home care svs and family support Care Plan: Care Plan ADL's - Improve/Maintain Start: 09/10/18 15:04 Freq: DAILY@1000 Status: Active Target: 09/19/18 Protocol: Activity Type Activity Date Activity User E-Sign Co-Sign Detail Recorded Client Recorded Date Recorded By Document 09/17/18 15:03 [id number] [id number] 09/17/18 15:04 [id number] 09/17/18 15:03 PMRU Outcome: ADL's/ADL Transfers Orders/Interventions Occupational Therapy Evaluation & Treatment Communication Tool in Patient Room Device Yes: FWW, w/c if fatigued Patient to receive OT 5x/wk for 60-120 Therex min/day Self Care Management Group Therapy UE/LE ADL's with Assist Yes ADL Transfers with Assist Yes Toileting: Transfers,Clothing Management Yes ,Hygeine w/Assist Light Kitchen/Laundry w/Assist Yes Progression Toward Outcome/Goals Progressing Outcome/Goals Met Pt is not making progress . Pt needs higher levels of assistnace for ADL today d /t freezing, tremors, and weakness. Communication-Improve/Maintain Start: 09/07/18 16:59 Freq: DAILY Status: Active Target: 09/17/18 Protocol: Activity Type Activity Date Activity User E-Sign Co-Sign Detail Recorded Client Recorded Date Recorded By Document 09/17/18 10:14 [facility] [id number] 09/17/18 10:16 [facility] 09/17/18 10:14 PMRU Outcome: Communication/Cognitive Status Current Communication Outcome/Goals Use Comm Tools/ Devices Makes Needs Known Effectively Other Other Communication Outcomes/Goals Voice and Motor Speech Goals: Long-Term Goal: Pt will use compensatory strategies to increase vocal loudness to moderate and speech to intelligibility to 95-100%, in spontaneous conversational speech, Independently, as observed by therapists, nursing and medical staff. Status: Progressing well. Short-Term Goal : Pt will complete loud voice exercises and use compensatory strategies to increase vocal loudness to moderate and speech to intelligibility to 95%, in structured conversational speech, given skilled instruction, Moderate cueing , and extra time, as observed by therapists, nursing and medical staff. Status: Progressing well. *Cervical and facial stretching and relaxation: 100 % accuracy, minimal-no verbal cues. *Diaphragmatic breath support: Independent *Sustained vowel phonation : Average sustained /a/ of 19 seconds with good vocal loudness and quality. *High pitch glides: Good vocal loudness and glide; however, with raspy quality at times due to acute respiratory illness. *Low pitch glides: Good vocal loudness and glide; however, with raspy quality at times due to acute respiratory illness. *Functional carry-over; reciprocal conversational speech: Good independent carry-over of all skills. Problem Solving Goals: Long-Term Goal: Pt will use compensatory strategies to solve moderately complex routine problems, for transfer and mobility safety , adaptive dressing, time and money management; with 100% accuracy, Independently. Status: Progressing well. Short-Term Goal : Pt will use compensatory strategies to solve simple routine problems, for transfer and mobility safety , adaptive dressing, time and money management; with 80% accuracy, given skilled instruction, Moderate cueing , and extra time. Status: Progressing well. Patient was provided with verbal questions and discussion regarding home safety: Patient completed tasks with >95% accuracy, no cues. Patient dicussed his own home, functional safety scenarios with 100% safety responses, independently. Progression Toward Outcomes/Goals Progressing DVT Prophylaxis- Improve/Maintain Start: 09/08/18 02:20 Freq: QSHIFT Status: Active Target: 09/20/18 Protocol: Activity Type Activity Date Activity User E-Sign Co-Sign Detail Recorded Client Recorded Date Recorded By Document 09/18/18 11:27 [id number] [id number] 09/18/18 11:27 [id number] 09/18/18 11:27 PMRU Outcome: DVT Prophylaxis Current DVT Outcome/Goals Remains Free of DVT Progression Toward Outcome/Goals Progressing Outcome/Goals Met Comment B[facility]don TEDs in place this shift Discharge Planning - Improve/Maintain Start: 09/08/18 02:20 Freq: DAILY Status: Active Target: 09/18/18 Protocol: Activity Type Activity Date Activity User E-Sign Co-Sign Detail Recorded Client Recorded Date Recorded By Document 09/18/18 01:29 [id number] [id number] 09/18/18 01:29 [id number] 09/18/18 01:29 PMRU Outcome: Discharge Planning Update Patient Family No Current Discharge Planning Outcome/Goals Demonstrates Understanding of Discharge Plan Progression Toward Outcome/Goals Progressing Education-Improve/Maintain Start: 09/08/18 02:20 Freq: QSHIFT Status: Active Target: 09/18/18 Protocol: Activity Type Activity Date Activity User E-Sign Co-Sign Detail Recorded Client Recorded Date Recorded By Document 09/18/18 11:27 [id number] 09/18/18 11:27 [id number] 09/18/18 11:27 PMRU Outcome: Education Current Education Outcome/Goals Encourage Questions Progression Toward Outcome/Goals Progressing Outcome/Goals Met Comment pt involved in care plan, medication /GI-Improve/Maintain Start: 09/08/18 02:20 Freq: QSHIFT Status: Active Target: 09/18/18 Protocol: Activity Type Activity Date Activity User E-Sign Co-Sign Detail Recorded Client Recorded Date Recorded By Document 09/18/18 11:27 [id number] [id number] 09/18/18 11:27 [id number] 09/18/18 11:27 PMRU Outcome: Genitourinary/ Gastrointestinal Current Gastrointestinal Outcome/Goals Maintain/ Achieve Bowel Regularity in Accordance with Pt's Baseline Progression Toward Outcome/Goals Progressing Current Genitourinary Outcome/Goals Maintain/ Achieve Urinary Continence Progression Toward Outcome/Goals Progressing Outcome/Goals Met Maintain/ Achieve Urinary Continence Outcome/Goals Met Comment continent this shift Gastrointestinal-Improve/Maintain Start: 09/07/18 15:41 Freq: DAILY@0400,1600 Status: Complete Target: Protocol: Activity Type Activity Date Activity User E-Sign Co-Sign Detail Recorded Client Recorded Date Recorded By Document 09/07/18 22:25 [id number] 09/07/18 22:26 [id number] 09/07/18 22:25 Outcome: Gastrointestinal Current GI Outcome/Goals Maintain/ Achieve Bowel Regularity in Accordance with Pt's Baseline Medication Administration Start: 09/08/18 02:20 Freq: QSHIFT Status: Active Target: 09/19/18 Protocol: Activity Type Activity Date Activity User E-Sign Co-Sign Detail Recorded Client Recorded Date Recorded By Document 09/18/18 11:27 [id number] 09/18/18 11:27 [id number] 09/18/18 11:27 PMRU Outcome: Medication Administration Assess Patient Knowledge/Teach Med Yes Education for all Meds Current Shopping Inspector Outcome/Goals Family/ Caregiver Administer Medications at Home Demonstrates Understanding Progression Towards Outcome/Goals Progressing Outcome/Goals Met Comment pt asks appropriate questions re medication regimen Is Patient Going Home on Lovenox? No Mobility- Improve/Maintain Start: 09/08/18 02:20 Freq: DAILY@1000 Status: Active Target: 09/19/18 Protocol: Activity Type Activity Date Activity User E-Sign Co-Sign Detail Recorded Client Recorded Date Recorded By Document 09/17/18 16:10 [id number] 09/17/18 16:12 [id number] 09/17/18 16:10 PMRU Outcome: Mobility Physical Therapy Evaluation and Yes Treatment Activity OOB with Assistance Yes Device Yes: FWW Assistance Yes: Min A Patient to be seen 5x/wk for 60-120 min/ Therex day for: Mobility Training Gait Training Balance Current Mobility Outcome/Goals Maintain/ Achieve Baseline Mobility Status Improve Mobility Status Demonstrates Proper Use of Assistive Devices Free from Complications of Immobility Progression Toward Outcome/Goals Not Progressing Lack of Progression Comment Pt having increased difficulty during today's tx session, requiring increased rest breaks and steadying assistance throughout tx session, made aware. Bed Mobility Yes: Ind Transfers Yes: Mod I with FWW Gait x ft Yes: Mod I with FWW x150ft Up/Down Stairs Yes: Mod I xflight With HEP Yes Neurological- Improve/Maintain Start: 09/08/18 02:20 Freq: QSHIFT Status: Active Target: 09/20/18 Protocol: Activity Type Activity Date Activity User E-Sign Co-Sign Detail Recorded Client Recorded Date Recorded By Document 09/18/18 11:27 [id number] 09/18/18 11:27 [id number] 09/18/18 11:27 PMRU Outcome: Neurological Weakness/Aphasia Weakness Current Neurological Outcome/Goals Maintain/ Achieve Baseline Neurological Status Maintain/ Improve Strength/ROM Progression Toward Outcome/Goals Progressing Nutrition/Swallowing- Improve/Maintain Start: 09/08/18 02:20 Freq: QSHIFT Status: Active Target: 09/20/18 Protocol: Activity Type Activity Date Activity User E-Sign Co-Sign Detail Recorded Client Recorded Date Recorded By Document 09/18/18 11:27 [id number] 09/18/18 11:27 [id number] 09/18/18 11:27 PMRU Outcome: Nutrition/Swallowing Current Nutrition/Swallowing Outcome/ Demonstrates Goals Adequate Hydration/ Prevents Dehydration Progression Toward Outcome/Goals Progressing Pain/Comfort- Improve/Maintain Start: 09/08/18 02:20 Freq: QSHIFT Status: Active Target: 09/17/18 Protocol: Activity Type Activity Date Activity User E-Sign Co-Sign Detail Recorded Client Recorded Date Recorded By Document 09/18/18 11:27 [id number] 09/18/18 11:27 [id number] 09/18/18 11:27 PMRU Outcome: Pain/Comfort Current Pain/Comfort Outcome/Goals Demonstrates Knowledge and Use of Available Comfort Measures Achieves Acceptable Comfort/Pain Level as Determined by Patient/Condit Progression Toward Outcome/Goals Progressing Outcome/Goals Met Comment pt denies pain at hs assessment Safety- Improve/Maintain Start: 09/07/18 15:41 Freq: DAILY@0400,1600 Status: Complete Target: Protocol: Activity Type Activity Date Activity User E-Sign Co-Sign Detail Recorded Client Recorded Date Recorded By Document 09/07/18 22:25 [id number] 09/07/18 22:26 [id number] 09/07/18 22:25 Outcome: Safety Current Safety Outcome/Goals Remain Free of Injury or Harm Cooperates with Safety Measures for Least Restrictive Environment Safety- Improve/Maintain Start: 09/08/18 02:20 Freq: QSHIFT Status: Active Target: 09/17/18 Protocol: Activity Type Activity Date Activity User E-Sign Co-Sign Detail Recorded Client Recorded Date Recorded By Document 09/18/18 08:00 [id number] [id number] 09/18/18 11:14 [id number] 09/18/18 08:00 PMRU Outcome: Safety Current Safety Outcome/Goals Remain Free of Injury or Harm Cooperates with Safety Measures for Least Restrictive Environment Progression Toward Outcome/Goals Progressing Outcome/Goals Met Comment following safety protocol Skin-Improve/Maintain Start: 09/07/18 15:41 Freq: DAILY@0400,1600 Status: Complete Target: Protocol: Activity Type Activity Date Activity User E-Sign Co-Sign Detail Recorded Client Recorded Date Recorded By Document 09/07/18 22:25 [id number] [email or web address] 09/07/18 22:26 [id number] 09/07/18 22:25 Outcome: Skin Outcome/Goals Maintain/ Improve Skin Intergrity Free from Decubitus Surgical Incisions Healing Medicine Note: Length of Stay: 2 days Anticipated Discharge Destination: Home Tentative Discharge Date: 09/20/18 Discharged to: Home
--- NOTE | 2018-09-18 17:04 | PN ---
Progress Note Date of Service: 09/18/18 Note: SHARLENE GANT was visited. Therapy notes read and reviewed. He was discussed in interdisciplinary team rounds. He is moving better today and feels better. He is still on Augmentin and tolerating it. Tremors less. Current Medications: Active Medications Generic Name Dose Route Start Last Admin Trade Name Freq PRN Reason Stop Dose Admin Acetaminophen 650 mg 09/08/18 10:39 09/17/18 18:18 Tylenol Tab* PO 650 mg Q4H PRN Administration T>101, mild abdomen pain Amantadine HCl 100 mg 09/08/18 09:00 09/18/18 08:30 Symmetrel Cap* PO 100 mg DAILY RAYSHAWN Administration Amoxicillin/Clavulanate Potassium 875 mg 09/16/18 21:00 09/18/18 08:30 Augmentin Tab* PO 875 mg BID RAYSHAWN Administration Benztropine Mesylate 1 mg 09/07/18 10:48 09/18/18 05:58 Cogentin Tab* PO 1 mg QID PRN Administration AGITATION Carbidopa/Levodopa 0.5 tab 09/17/18 19:00 09/17/18 19:15 Sinemet 25/100 Tab(*) PO 0.5 tab 1900 RAYSHAWN Administration Carbidopa/Levodopa 1 tab 09/18/18 07:00 09/18/18 12:16 Sinemet 25/100 Tab(*) PO 1 tab 0700,1200 RAYSHAWN Administration Docusate Sodium 100 mg 09/13/18 14:02 Colace Cap* PO BID PRN CONSTIPATION Famotidine 20 mg 09/08/18 09:00 09/18/18 08:30 Pepcid Tab* PO 20 mg DAILY RAYSHAWN Administration Fluphenazine HCl 10 mg 09/12/18 21:00 09/17/18 21:40 Prolixin Tab* PO 10 mg BEDTIME RAYSHAWN Administration Guaifenesin 5 ml 09/15/18 16:41 09/17/18 14:46 Robitussin* PO 5 ml Q6H PRN Administration COUGH Heparin Sodium (Porcine) 5,000 units 09/07/18 21:00 09/18/18 08:30 Heparin Vial(*) SUBCUT 5,000 units Q12HR RAYSHAWN Administration Lorazepam 1 mg 09/07/18 10:47 09/18/18 05:17 Ativan Tab(*) PO 1 mg TID PRN Administration ANXIETY Oxycodone/Acetaminophen 1 tab 09/15/18 12:06 Percocet 5/325 Tab* PO Q6H PRN PAIN - SEVERE Polyethylene Glycol/Electrolytes 17 gm 09/13/18 14:02 Miralax* PO DAILY PRN CONSTIPATION Quetiapine Fumarate 25 mg 09/07/18 21:30 09/17/18 23:02 Seroquel Tab* PO 25 mg 1900,2100,2300 RAYSHAWN Administration Sertraline HCl 150 mg 09/08/18 09:00 09/18/18 08:30 Zoloft* PO 150 mg DAILY RAYSHAWN Administration Vital Signs: Vital Signs Temp Pulse Resp BP Pulse Ox 99.1 F 91 22 125/82 96 09/18/18 16:20 09/18/18 16:20 09/18/18 16:20 09/18/18 16:20 09/18/18 16:20 Lab Results: Laboratory Results - last 24 hr 09/17/18 05:36 Procalcitonin 0.18 H Exam: GENERAL: no acute distress. alert and appropriate. LUNGS: scatttered ronchi . HEART: regular rate and rhythm ABDOMEN: + bowel sounds, soft, non-tender, non-distended. Ecchymoses as before. EXTREMITIES: no edema. NEUROLOGIC: Tremors x4 ext. Motor 5/5 BUE/BLE. Normal sensation. Assessment/Plan: 62-year-old man with Parkinson's disease exacerbation in the setting of sigmoid volvulus status post sigmoid colectomy with primary anastomosis. 1. Status post sigmoid volvulus and sigmoid colectomy with primary anastomosis. F/U with Dr. Fitzpatrick. 15 pound lifting limit for 3 weeks. Soft diet. PT/OT 2. Parkinson's disease. Sinemet/amantadine. PT/OT. Adjusted Sinemet to 1 tab at 0700, noon and 0.5 tab at 7pm 3. Schizophrenia. Cogentin prn for agitation. Ativan prn for anxiety. On Zoloft, fluphanzine, Seroquel. 4. Prediabetes. consistent carbohydrate diet. Restart metformin when adequate PO. He was only taking 250mg per day at home. 5. DVT prophylaxis. TEDs and subcutaneous heparin 5000u Q12h ok per surgery. 6. Impaired cognition. Speech therapy 7. Advance directives. He is a full code. If he cannot make decisions for himself, his , Noemí Rolle is his healthcare proxy. 8. Putative bronchitis: Augmentin day 04/22. 09/18/18 17:04 09/18/18 17:05
[2018-09-18] MEDS: QUEtiapine TAB* 25 MG PO SCH ×3 (19:14→23:58)
[2018-09-18] MEDS: fluPHENAZine HCL TAB* 5 MG PO SCH (21:26)
[2018-09-18] MEDS: guaiFENesin LIQ* 100 MG/5 ML UDC PO PRN (21:28)
[2018-09-19] MEDS: guaiFENesin LIQ* 100 MG/5 ML UDC PO PRN (04:06)
[2018-09-19] MEDS: Carbidopa/Levodop 25/100 MG TAB(*) PO SCH ×3 (06:38→17:34)
[2018-09-19] MEDS: Amantadine CAP* 100 MG PO SCH (08:22)
[2018-09-19] MEDS: Heparin VIAL(*) 5000 UNITS/ML VIAL (FIVE THOUSAND) SUBCUT SCH (08:22)
[2018-09-19] MEDS: Sertraline* 50 MG TAB PO SCH (08:22)
[2018-09-19] MEDS: Amoxicillin/Clavulanate TAB* 875 MG PO SCH (08:22)
[2018-09-19] MEDS: Famotidine TAB* 20 MG PO SCH (08:22)
[2018-09-19] MEDS: LORazepam TAB(*) 1 MG PO PRN (08:25)
[2018-09-19 16:18] VITALS: BP 155/95
--- NOTE | 2018-09-20 22:16 | DS ---
CC: Dr. Derrick Busch* DISCHARGE SUMMARY: DATE OF ADMISSION: 09/07/18 DATE OF DISCHARGE: 09/19/18 DISCHARGE DIAGNOSES: 1. Status post sigmoid colectomy with primary anastomosis for sigmoid volvulus. 2. Parkinson disease. 3. Schizophrenia. 4. Bronchitis. 5. Impaired glucose tolerance. HISTORY OF ILLNESS AND HOSPITAL COURSE: For complete history of the events leading up to his rehab stay, please see the history and physical dictated by Dr. Ivonne Carr on 09/07/18. While on the rehab unit, the patient initially had some blood clots mixed in with his bowel movements, but this slowly cleared. The patient was maintained on his medications for both Parkinson's and schizophrenia. The patient's wanted his Prolixin dose moved to 2 hours after his last Sinemet dose; however, his dose times were adjusted to accomplish that. On 09/15/18, the patient developed upper respiratory symptoms. A chest x-ray was negative. He did spike a fever and felt short of breath. The patient was felt to have bronchitis and was started on Augmentin. His symptoms subsequently improved. He was less short of breath and was able to perform better with physical therapy. The patient will be discharged to home with Augmentin. Otherwise, the patient was medically stable. He was seen by the surgery team while on the rehab unit. They felt that his surgery was progressing appropriately. His belly remained soft and he was able to have bowel movements. The patient was seen by both physical and occupational therapy while on the rehab unit. He made good gains with both disciplines. With physical therapy at the time of admission, the patient required contact guard to min assist to do a transfer. He was ambulating 200 feet with min assist. With occupational therapy at the time of admission, the patient required supervision for upper body dressing, min assist for lower body dressing, min assist for bathing, contact guard for toileting and toilet transfers, contact guard for transfers, ambulating contact guard for 150 feet, contact guard to go up and down a flight of stairs. He was supervision for bathing, supervision for dressing, and supervision for toileting. The patient' s was brought in for family training prior to discharge. She felt confident in taking him home. The patient was discharged home 09/19/18. DISCHARGE DIET: Regular. DISCHARGE MEDICATIONS: 1. Augmentin 875 mg twice daily for 7 days. 2. Amantadine 100 mg daily. 3. Cogentin 1 mg 4 times a day as needed. 4. Sinemet 25/100, 1 tablet at 7:00 a.m. and 12:00 noon, one-half tablet at 7: 00 p.m. 5. Pepcid 20 mg daily. 6. Prolixin 10 mg at bedtime. 7. Ativan 1 mg 3 times a day as needed. 8. Seroquel 25 mg at 7:00 p.m., 9:00 p.m., and 11:00 p.m. 9. Zoloft 150 mg daily. 10. Metformin 250 mg in the evening. SERVICES AFTER DISCHARGE: Through [facility] [place], he will have home nursing, home physical therapy, and a home health aide. Follow up with Dr. Derrick Busch in 1 to 2 weeks. CONDITION AT DISCHARGE: Stable. TIME SPENT: Time for this discharge was approximately 50 minutes, greater than half of that was spent with the patient and his , discussing post- rehabilitation therapies, medications, and services. [id number]/[facility] #: [id number] MTDD
== END 2018-09-19 18:15 | disposition home health service (06) | DRG 950 ==
LOC: PMRU 10:25
PROVIDERS: ADMIT Physical Medicine & Rehabilitation; ATTEND Physical Medicine & Rehabilitation
PROC: F07Z5ZZ Bed Mobility Treatment (ICD-10-PCS; principal; 2018-09-07)
PROC: F07Z9ZZ Gait Training/Functional Ambulation Treatment (ICD-10-PCS; 2018-09-07)
PROC: F07Z8ZZ Transfer Training Treatment (ICD-10-PCS; 2018-09-07)
PROC: F08Z0ZZ Bathing/Showering Techniques Treatment (ICD-10-PCS; 2018-09-07)
PROC: F08Z1ZZ Dressing Techniques Treatment (ICD-10-PCS; 2018-09-07)
PROC: F08Z3ZZ Feeding/Eating Treatment (ICD-10-PCS; 2018-09-07)
PROC: F06Z8ZZ Motor Speech Treatment (ICD-10-PCS; 2018-09-07)
PROC: F06 Physical Rehabilitation and Diagnostic Audiology, Rehabilitation, Speech Treatment (ICD-10-PCS; 2018-09-07)
DX: Z48.815 Encounter for surgical aftercare following surgery on the digestive system (principal); G20 Parkinson's disease; F20.9 Schizophrenia, unspecified; J40 Bronchitis, not specified as acute or chronic; R73.03 Prediabetes; G24.01 Drug induced subacute dyskinesia; G31.84 Mild cognitive impairment of uncertain or unknown etiology; Z79.84 Long term (current) use of oral hypoglycemic drugs; Z79.1 Long term (current) use of non-steroidal anti-inflammatories (NSAID); Z79.899 Other long term (current) drug therapy; Z80.0 Family history of malignant neoplasm of digestive organs
CPT/HCPCS: 36415; 71046; 80053; 84145; 85025; 86140; 86706; 86803; 87070; 87205; 87340; 87389; A9270-GY; J1644

== ENCOUNTER 2019-01-08 12:25 | Emergency (ER) | payer MEDICARE, OTHER ==
--- OUTSIDE RECORDS SUMMARY | 2019-01-08 12:30 | XMS REPORT | Continuity of Care Document ---
:1955 External Reference #:[id number] Author Name Pam Mireles O.D. Address [address] [place] [address] Care Team Providers Name Role Phone Derrick Busch M.D. - Endocrinology, Care Team Information Director Cpg [phone] Diabetes & Metabolism Problems Active Problems Provider Date Hernia of abdominal cavity Onset: Schizophrenia Onset: Mental disorder Onset: Nuclear senile cataract Pam Mireles O.D. Onset: 11/14/2014 Presbyopia Pam Mireles O.D. Onset: 11/14/2014 Parkinson's disease Onset: Impaired fasting glycaemia Pam Mireles O.D. Onset: 12/02/2016 Note: corrected diagnosis per PCP, patient does not have a diagnosis of diabetes. Vitreous degeneration Pam Mireles O.D. Onset: 12/01/2017 Social History Type Date Description Comments Sex Unknown ETOH Use Rarely consumes alcohol Tobacco Use Start: Unknown Patient has never smoked Recreational Drug Use Denies Drug Use Smoking Status Reviewed: 01/04/19 Patient has never smoked Allergies, Adverse Reactions, Alerts Description No Known Drug Allergies Medications Active Medications SIG Qnty Indications Ordering Provider Date Lorazepam Unknown 1mg Tablets Benztropine Mesylate Unknown 1mg Tablets Fluphenazine HCL as needed Unknown 10mg Tablets Sertraline HCL Unknown 100mg Tablets Aspirin Ec prn Unknown 325mg Tablets DR Dopamine HCL Unknown 40mg/ml Solution Seroquel Unknown 25mg Tablets Immunizations Description No Information Available Vital Signs Description No Information Available Results Description No Information Available Procedures Description No Information Available Medical Devices Description No Information Available Encounters Description No Information Available Assessments Date Code Description Provider 01/04/2019 H25.13 Age-related nuclear cataract, bilateral Pam Mireles O.D. 01/04/2019 H52.4 Presbyopia Pam Mireles O.D. Plan of Treatment 01/04/2019 - Pam Mireles O.D.H25.13 Age-related nuclear cataract, bilateralComments:You have nuclear sclerosis, which is hardening of your natural lens. This is normal as a person ages.Follow up:2 YEARS You can expect to have your eyes dilated at your next visit. If Dr. Mireles orders any additional testing, it may require extra time. We recommend that you bring sunglasses, as dilation drops often make you light sensitive until they wear off. We always recommend you bring someone to drive [employer] if you are uncomfortable driving with your eyes dilated. If you have any questions before your next visit, feel free to call our office at .H52.4 PresbyopiaComments:Smoking can increase the risk of developing or worsening any eye related disease, as well as affect your overall health. If you are a smoker , we strongly recommend that you quit.If you are not a smoker, we strongly recommend that you do not start. You have presbyopia. This is when the lens in your eye loses the ability to change focus, and happens as we age. A pair of reading glasses will help you see up close. Functional Status Description No Information Available Mental Status Description No Information Available Referrals Description No Information Available
--- OUTSIDE RECORDS SUMMARY | 2019-01-08 12:30 | XMS REPORT | Continuity of Care Document ---
:1955 External Reference #:[id number] Author Name Fan Velazco M.D. (transmitted by agent of provider Emilia Echeverria ) Address [address], [place] [address] Care Team Providers Name Role Phone Derrick Busch MD - Endocrinology, Care Team Information Shower Room Attendant Diabetes & Metabolism Problems Active Problems Provider Date Tardive dyskinesia Joe Horton M.D. Onset: 03/18/2014 Schizophrenia Fan Velazco M.D. Onset: 11/15/2018 Parkinson's disease Fan Velazco M.D. Onset: 11/15/2018 Social History Type Date Description Comments Sex Unknown ETOH Use Drinks Alcoholic one drink a week Beverages Occasionally with special dinner Tobacco Use Start: Unknown Patient has never smoked Smoking Status Reviewed: 11/15/18 Patient has never smoked Exercise Exercises regularly Type/Frequency Allergies, Adverse Reactions, Alerts Description No Known Drug Allergies Medications Active Medications SIG Qnty Indications Ordering Date Provider Commode Bedside use as directed 1units G20 Joe Ayon 10/03/2018 Autumn Horton M.D. Carbidopa-Levodopa 1 tab by mouth at 60tabs G21.11 Joe Ayon 06/21/2016 8 am, 1 tab by Adithya Horton 25-100mg Tablets mouth at 12 pm, 1/2 tab by mouth at 4 pm, sometimes a 1/2 tab at 6 Lorazepam 3-4 tabs a day Unknown 1mg Tablets Benztropine Mesylate 2-3 tabs daily Unknown 1mg Tablets Sertraline HCL 1 1/2 po at noon Unknown 100mg Tablets Seroquel 2-3 by mouth every Unknown 25mg Tablets night at bedtime, usually only 2 Fluphenazine HCL 1 tab by mouth in Unknown 10mg PM, as needed Tablets Amantadine HCL 1 by mouth every Unknown 100mg morning Capsules Metformin HCL Take 1/2 Tab By Unknown 500mg Mouth Every Day Tablets Immunizations Description No Information Available Vital Signs Date Vital Result Comment 11/15/2018 11:01am Height 72.5 inches 6'0.50" Weight 143.00 lb Heart Rate 72 /min BP Systolic 118 mmHg BP Diastolic 82 mmHg BMI (Body Mass Index) 19.1 kg/m2 10/03/2018 2:20pm Height 72.5 inches 6'0.50" Weight 129.00 lb Heart Rate 80 /min BP Systolic 132 mmHg BP Diastolic 70 mmHg BMI (Body Mass Index) 17.3 kg/m2 Results Description No Information Available Procedures Date Code Description Status 09/04/2018 06248 Colectomy Partial W/Anastomosis Completed 09/04/2018 30295 Colectomy Partial W/Anastomosis Completed Medical Devices Description No Information Available Encounters Type Date Location Provider Dx Diagnosis Office Visit 10/03/2018 [facility] Joe Horton, K56.2 [facility] F20.9 Schizophrenia, unspecified G20 Parkinson's disease K59.09 Other constipation Office Visit 09/03/2018 7:00a [facility] MD K56.2 [facility] [employer] Office Visit 09/02/2018 7:00a [facility] MD K56.2 [facility] F20.9 Schizophrenia, unspecified G20 Parkinson's disease Office Visit 09/01/2018 7:[facility] MD K56.2 [facility] [employer] Office Visit 09/01/2018 10:19a [facility] Anne Marie Martínez6.2 [facility] Adithya F20.9 Schizophrenia, unspecified G20 Parkinson's disease R73.03 Prediabetes Office Visit 08/08/2018 2:15p [facility] Joe Ayon [facility] H[facility] M.D. disease F20.3 Undifferentiated schizophrenia G24.01 Drug induced subacute dyskinesia Assessments Date Code Description Provider 11/15/2018 G20 Parkinson's disease Fan Velazco M.D. 11/15/2018 F20.9 Schizophrenia, unspecified Fan Velazco M.D. 10/03/2018 K56.2 [facility] Joe Horton M.D. 10/03/2018 F20.9 Schizophrenia, unspecified Joe Horton M.D. 10/03/2018 G20 Parkinson's disease Joe Horton M.D. 10/03/2018 K59.09 Other constipation Joe Horton M.D. 09/13/2018 K56.2 [facility] SALLIE Irwin 09/09/2018 K56.2 [facility] Mahendra Miller MD 09/07/2018 K56.2 [facility] Lacey Tom, EDDA 09/07/2018 K56.2 [facility] Lacey Tom, EDDA 09/06/2018 K56.2 [facility] Ehsan Fitzpatrick MD 09/05/2018 K56.2 Kadi Fitzpatrick MD 09/04/2018 K56.2 [facility] Ehsan Fitzpatrick MD 09/04/2018 K56.2 [facility]heila[facility] Mahendra Miller MD 09/03/2018 K56.2 Voldevorah Baum MD 09/02/2018 K56.2 Volvradha Baum MD 09/02/2018 F20.9 Schizophrenia, unspecified Jeanna Baum MD 09/02/2018 G20 Parkinson's disease Jeanna Baum MD 09/01/2018 K56.2 [facility] Jeanna Baum MD 09/01/2018 K56.2 [facility] Iram Phoenix M.D. 09/01/2018 F20.9 Schizophrenia, unspecified Iram Phoenix M.D. 09/01/2018 G20 Parkinson's disease Iram Phoenix M.D. 09/01/2018 R73.03 Prediabetes Iram Phoenix M.D. 08/08/2018 G20 Parkinson's disease Joe Horton M.D. 08/08/2018 F20.3 Undifferentiated schizophrenia Joe Horton M.D. 08/08/2018 G24.01 Drug induced subacute dyskinesia Joe Horton M.D. Plan of Treatment Future Appointment(s):12/31/2018 1:00 pm - Fan Velazco M.D. at [facility]01/08/2019 2:45 pm - Joe Horton M.D[facility] at [facility]11/15/2018 - Fan Velazco M.D.G20 Parkinson's diseaseFollow up:Follow up 1-2 weeks after December20.9 Schizophrenia, unspecified Functional Status Description No Information Available Mental Status Description No Information Available Referrals Description No Information Available
--- OUTSIDE RECORDS SUMMARY | 2019-01-08 12:30 | XMS REPORT | Continuity of Care Document ---
:1955 External Reference #:[id number] Author Name Pam Mireles O.D. Address [address] [place] [address] Care Team Providers Name Role Phone Derrick Busch M.D. - Endocrinology, Care Team Information [employer] [phone] Diabetes & Metabolism Problems Active Problems Provider [...] always recommend you bring someone to drive [employer] if you are uncomfortable driving with your [...]
[2019-01-08 12:39] VITALS: BP 153/92
--- NOTE | 2019-01-08 13:03 | UC ---
Hand/Wrist HPI - HPI Summary HPI Summary: 63-year-old male who slipped last evening and fell hitting his right fifth finger on a table. He states he thinks he dislocated it however his reduced it at that time. He is here today because it's mildly swollen and painful. He denies any other injury and denies any injury to his legs or knees. - History Of Current Complaint Chief Complaint: UCUpperExtremity Stated Complaint: finger INJURY Time Seen by Provider: 01/08/19 12:33 Hx Obtained From: Patient ?: No Onset/Duration: Sudden Onset Severity Initially: Mild Severity Currently: Mild Pain Intensity: 5 Character Of Pain: Aching Aggravating Factor(s): Movement Alleviating Factor(s): Rest Associated Signs And Symptoms: Positive: Swelling, Bruising - Allergies/Home Medications Allergies/Adverse Reactions: Allergies Allergy/AdvReac Type Severity Reaction Status Date / Time No Known Allergies Allergy Verified 01/08/19 12:39 Home Medications: Home Medications Benztropine TAB* [Cogentin TAB*] 1 mg PO TID 01/08/19 [History Confirmed ] PMH/Surg Hx/FS Hx/Imm Hx - Additional Past Medical History Additional PMH: History of Parkinson's disease. Previously Healthy: Yes Endocrine History: Diabetes - Prediabetic. Psychological History: Schizophrenia - Surgical History Surgical History: Yes Surgery Procedure, Year, and Place: 2 hernia operations, gastro surgery (lower esophageal sphincter). colon resection - Family History Known Family History: Positive: Diabetes - father, Non-Contributory Family History: Mother with throat CA. - Social History Lives: With Family Alcohol Use: Occasionally Substance Use Type: None Smoking Status (MU): Never Smoked Tobacco - Immunization History Most Recent Influenza Vaccination: years ago Most Recent Pneumonia Vaccination: never received Review of Systems All Other Systems Reviewed And Are Negative: Yes Skin: Positive: Bruising - Mild bruising to right fifth finger., Other - Mild swelling to right fifth finger. Motor: Positive: Decreased ROM - Very minimal decreased flexion because of swelling. Is Patient Immunocompromised?: No Physical Exam Triage Information Reviewed: Yes Appearance: Well-Appearing, No Pain Distress, Well-Nourished Vital Signs: Initial Vital Signs Temp 98.2 F 01/08/19 12:33 Pulse 84 01/08/19 12:33 Resp 16 01/08/19 12:33 BP 153/92 01/08/19 12:33 Vital Signs Reviewed: Yes Musculoskeletal: Positive: Strength Intact, Other: - Flexion very minimally limited because of swelling. Good peripheral pulses, neuro sensation and capillary refill. Good finger strength with flexion/extension against resistance. No deformity is noted however there is mild swelling of the right fifth finger with mild bruising. Neurological: Positive: Alert, Other: - Due to Parkinson's disease patient does have erratic body movements. Psychological Exam: Normal Skin: Positive: Other - Right fifth finger mildly bruised with mild swelling. Hand/Wrist Course/Dx - Course Course Of Treatment: Right fifth finger x-ray:FINDINGS: The soft tissues are unremarkable. The bone mineralization is within normal limits. No fracture is identified. Anatomic alignment is maintained. The joint spaces are preserved. IMPRESSION: No fracture or traumatic malalignment identified We discussed andrew taping the fourth and fifth fingers however the patient states he would do that at home because he has the necessary sticky tape. I offered to do that here because we have the same item but he preferred to do it at home. - Differential Dx/Diagnosis Provider Diagnosis: Sprain of right little finger Discharge ED - Sign-Out/Discharge Documenting (check all that apply): Patient Departure All imaging exams completed and their final reports reviewed: Yes - Discharge Plan Condition: Good Disposition: HOME Patient Education Materials: Finger Sprain (ED) Referrals: Derrick Busch MD [Primary Care Provider] - Rubina Anthony MD [Medical Doctor] - Additional Instructions: Elevate as much as possible. May apply ice intermittently throughout the day. May take Tylenol for pain. Definite follow-up with the orthopedist if you continue to have pain over the next week. Andrew tape for comfort. - Billing Disposition and Condition Condition: GOOD Disposition: Home
== END 2019-01-08 13:10 | disposition home or self-care (01) ==
LOC: UCEAST 12:25
DX: S63.616A Unspecified sprain of right little finger, initial encounter (principal); E11.9 Type 2 diabetes mellitus without complications; G20 Parkinson's disease; Z79.899 Other long term (current) drug therapy; W01.0XXA Fall on same level from slipping, tripping and stumbling without subsequent striking against object, initial encounter; Y92.9 Unspecified place or not applicable
CPT/HCPCS: 73140; 99211; G0463

== ENCOUNTER 2019-10-28 07:30 | Inpatient (IN) ==
[~2019-10-28 07:30] MED LIST: Buffered Lidocaine 1% SYRIN 1 ml INTRADERM ONE; Dexamethasone IV 4 MG/ML VIAL 1 ml VIAL IV SLOW PU ONE; Famotidine IV 10 MG/ML 2 ml VIAL (20 mg) IV ONE; Lactated Ringers 1000 ml BAG 1,000 ML IV SCH
[2019-10-28] MEDS ORDERED: Propofol 10 MG/ML 20 ML BTL ONE (08:39)
[2019-10-28] MEDS ORDERED: fentaNYL 250 mcg/5 ml 50 MCG/ML 5 ml VIAL (250 MCG) ONE (08:39)
[2019-10-28] MEDS ORDERED: Ondansetron 4 mg VIAL 2 MG/ML 2 ml VIAL ONE ×2 (08:39→18:49)
[2019-10-28] MEDS ORDERED: Lidocaine 2% PF 5 ML VIAL ONE (08:39)
[2019-10-28] MEDS ORDERED: Midazolam 2 mg/2 ml VIAL 1 mg/ml 2 ml VIAL (2 mg) ONE (08:39)
[2019-10-28] MEDS ORDERED: Rocuronium 50 mg VIAL 10 mg/ml 5 ml VIAL (50 mg) ONE ×2 (08:40→15:44)
[2019-10-28] MEDS ORDERED: Buffered Lidocaine 1% SYRIN 1 ml INTRADERM ONE (09:40)
[2019-10-28] MEDS ORDERED: Dexamethasone IV 4 MG/ML VIAL 1 ml VIAL ONE ×2 (09:40→18:16)
[2019-10-28] MEDS ORDERED: ceFOXitin 2 GM IVPREMIX 2 GM/50 ML BAG ONE (09:40)
[2019-10-28] MEDS ORDERED: Famotidine IV 10 MG/ML 2 ml VIAL (20 mg) ONE (09:40)
[2019-10-28] MEDS ORDERED: D5LR 1000 ml BAG 1,000 ML IV SCH (11:00)
[2019-10-28] MEDS ORDERED: Bupivacaine 0.5% SDV PF 30ML VIAL ONE (12:32)
[2019-10-28] MEDS ORDERED: fentaNYL 100 mcg/2 ml 50 MCG/ML VIAL IV PRN (12:41)
[2019-10-28] MEDS ORDERED: DiMENhydriNATE IV 50 mg/ml 1 ml VIAL IV PUSH PRN (12:41)
[2019-10-28] MEDS ORDERED: Ondansetron 4 mg VIAL 2 MG/ML 2 ml VIAL IV PRN ×2 (12:41→16:36)
[2019-10-28] MEDS ORDERED: Acetaminophen IV 1 GM/100ML 1,000 MG/100 ML VIAL IVPB ONE (12:41)
[2019-10-28] MEDS ORDERED: HYDROmorphone 1 MG/1 ML SYRINGE IV PRN (12:41)
[2019-10-28] MEDS ORDERED: Naloxone 0.4 mg VIAL 0.4 mg/ml 1 ml VIAL IV PRN (12:41)
[2019-10-28] MEDS ORDERED: Succinylcholine 200 mg VIAL 20 mg/ml 10 ml VIAL (200 mg) ONE (13:16)
[2019-10-28] MEDS ORDERED: Bacitracin OPHTH.OINT 3.5 GM ONE (14:00)
[2019-10-28] MEDS ORDERED: Phenylephrine 40 mcg/mL 10mL (400mcg) SYRINGE ONE (14:34)
[2019-10-28] MEDS ORDERED: HYDROmorphone 0.5 MG/0.5 ML SYRINGE IV SLOW PU PRN (16:34)
[2019-10-28] MEDS ORDERED: HYDROmorphone 1 MG/1 ML SYRINGE IV SLOW PU PRN (16:35)
[2019-10-28] MEDS ORDERED: Acetaminophen IV 1 GM/100ML 100 ML ONE ×2 (16:48→18:49)
[2019-10-28] MEDS ORDERED: Labetalol IV 5 MG/ML 20 ml VIAL IV PUSH ONE ×2 (17:06→18:06)
[2019-10-28] MEDS ORDERED: Labetalol IV 5 MG/ML 20 ml VIAL ONE (17:07)
[2019-10-28] MEDS ORDERED: Metoclopramide 5 MG/ML VIAL (10 mg) ONE (18:49)
[2019-10-28] MEDS: Lactated Ringers 1000 ml BAG 1,000 ML IV SCH (20:09)
[2019-10-28] MEDS: Carbidopa/Levodop 25/100 MG TAB PO SCH (20:33)
[2019-10-29] MEDS: Lactated Ringers 1000 ml BAG 1,000 ML IV SCH ×2 (03:36→17:28)
[2019-10-29] MEDS: Carbidopa/Levodop 25/100 MG TAB PO SCH ×4 (05:43→17:33)
[2019-10-29 06:12] LABS: ABS Monocytes 0.7 10^3/ul (0-0.8); ABS Neutrophils 5.1 10^3/ul (1.5-7.7); Hematocrit 31 % (42-52); Hemoglobin 11.1 g/dL (14.0-18.0); Lymphocyte % 14.6 %; Mean Corpuscular HGB Conc 36 g/dL (31-36); Mean Corpuscular Hemoglobin 34 pg (27-31); Mean Corpuscular Volume 94 fL (80-94); Mean Platelet Volume 6.5 fL (7.4-10.4); Platelet Count 164 10^3/uL (150-450); Red Blood Count 3.28 10^6 /uL (4.18-5.48); Red Cell Distribution Width 13 % (10-15); White Blood Count 6.8 10^3/uL (3.5-10.8)
[2019-10-29 06:27] LABS: BUN/Creatinine Ratio 17.2 (8-20); Calcium 8.5 mg/dL (8.6-10.3); EGFR Non-African American 81.8 (>60); Potassium 4.4 mmol/L (3.5-5.0)
[2019-10-29 09:34] LABS: Urine Appearance Cloudy; Urine Bilirubin Negative (Negative); Urine Blood 3+ (Negative); Urine Color Yellow; Urine Glucose Negative (Negative); Urine Ketones Trace (Negative); Urine Nitrite Negative (Negative); Urine Protein Negative (Negative); Urine Specific Gravity 1.021 (1.010-1.030); Urine Urobilinogen Negative (Negative)
[2019-10-29 09:48] LABS: Urine Bacteria Absent (Absent); Urine Red Blood Cell 3+(>10/hpf) (Absent); Urine White Blood Cell Trace(0-5/hpf) (Absent)
[2019-10-30] MEDS: Carbidopa/Levodop 25/100 MG TAB PO SCH ×3 (05:56→14:31)
[2019-10-30] MEDS: Lactated Ringers 1000 ml BAG 1,000 ML IV SCH (06:39)
[2019-10-30 16:25] VITALS: BP 110/88
== END 2019-10-30 17:00 | disposition home or self-care (01) | DRG 331 ==
LOC: AA 09:01 → EDSTATUS 10:45 → SSU 16:24
PROVIDERS: ADMIT Surgery; ATTEND Surgery

== ENCOUNTER 2020-08-23 13:44 | Inpatient (IN) ==
[2020-08-23 15:40] LABS: ABS Lymphocytes 0.7 10^3/ul (1.0-4.8); ABS Monocytes 0.8 10^3/ul (0-0.8); ABS Neutrophils 4.8 10^3/ul (1.5-7.7); Eosinophil % 0.1 %; Hematocrit 43 % (42-52); Hemoglobin 14.7 g/dL (14.0-18.0); Lymphocyte % 10.9 %; Mean Corpuscular HGB Conc 34 g/dL (31-36); Mean Corpuscular Hemoglobin 32 pg (27-31); Mean Corpuscular Volume 95 fL (80-94); Mean Platelet Volume 6.6 fL (7.4-10.4); Platelet Count 189 10^3/uL (150-450); Red Blood Count 4.54 10^6 /uL (4.18-5.48); Red Cell Distribution Width 14 % (10-15); White Blood Count 6.3 10^3/uL (3.5-10.8)
[2020-08-23 15:56] LABS: Albumin 4.2 g/dL (3.2-5.2); Albumin/Globulin Ratio 1.8 (1-3); Calcium 8.8 mg/dL (8.6-10.3); EGFR African American 111.3 (>60); Globulin 2.4 g/dL (2-4); Total Bilirubin 1.3 mg/dL (0.2-1.0); Total Protein 6.6 g/dL (6.4-8.9)
[2020-08-23] MEDS ORDERED: Iohexol 300 (CONTRAST) 10 ML SDV IV ONE (16:34)
[2020-08-23] MEDS ORDERED: Lidocaine 2% JELLY 10 ML JELLY TOPICAL ONE (18:43)
[2020-08-23] MEDS ORDERED: Lidocaine 2% JELLY 6 ML TOPICAL ONE (18:46)
[2020-08-23] MEDS ORDERED: Lactated Ringers 1000 ml BAG 1,000 ML IV ONE (19:00)
[2020-08-23 19:39] LABS: Rapid COVID-19 Molecular Undetected (Undetected)
[2020-08-23] MEDS ORDERED: Ondansetron 4 mg VIAL 2 MG/ML 2 ml VIAL IV PRN (20:27)
[2020-08-23 22:48] LABS: Urine Appearance Clear; Urine Bilirubin Negative (Negative); Urine Blood Negative (Negative); Urine Color Amber; Urine Glucose Negative (Negative); Urine Ketones Trace (Negative); Urine Nitrite Negative (Negative); Urine Protein Negative (Negative); Urine Specific Gravity 1.057 (1.002-1.030); Urine Urobilinogen Negative (Negative)
[2020-08-23] MEDS: Heparin 5000 UNITS/ML 1 mL VIAL SUBCUT SCH (23:31)
[2020-08-23 23:46] LABS: Activated Partial Thrombo Time 28.8 seconds (26.0-38.0); INR 1.18 (0.86-1.15)
[2020-08-23] MEDS: NS 0.9% 1000 ml BAG 1,000 ML IV SCH (23:52)
[2020-08-24 06:00] LABS: ABS Monocytes 0.8 10^3/ul (0-0.8); ABS Neutrophils 4.5 10^3/ul (1.5-7.7); Eosinophil % 0.3 %; Hematocrit 42 % (42-52); Hemoglobin 14.5 g/dL (14.0-18.0); Lymphocyte % 15.7 %; Mean Corpuscular HGB Conc 35 g/dL (31-36); Mean Corpuscular Hemoglobin 33 pg (27-31); Mean Corpuscular Volume 94 fL (80-94); Mean Platelet Volume 6.7 fL (7.4-10.4); Platelet Count 177 10^3/uL (150-450); Red Blood Count 4.44 10^6 /uL (4.18-5.48); Red Cell Distribution Width 14 % (10-15); White Blood Count 6.3 10^3/uL (3.5-10.8)
[2020-08-24 06:04] LABS: INR 1.22 (0.86-1.15)
[2020-08-24 06:14] LABS: Calcium 8.3 mg/dL (8.6-10.3); EGFR African American 119.5 (>60); EGFR Non-African American 98.7 (>60); Potassium 4.3 mmol/L (3.5-5.0)
[2020-08-24] MEDS: Heparin 5000 UNITS/ML 1 mL VIAL SUBCUT SCH ×3 (06:43→22:27)
[2020-08-24] MEDS: Carbidopa/Levodop 25/100 MG TAB PO SCH ×5 (06:48→22:27)
[2020-08-24] MEDS: NS 0.9% 1000 ml BAG 1,000 ML IV SCH ×2 (10:17→22:14)
[2020-08-24] MEDS: Polyethylene Glycol 3350 17 GM PACKET PO SCH (16:29)
[2020-08-25] MEDS: Heparin 5000 UNITS/ML 1 mL VIAL SUBCUT SCH ×3 (06:19→22:30)
[2020-08-25] MEDS: Carbidopa/Levodop 25/100 MG TAB PO SCH ×5 (06:20→22:30)
[2020-08-25] MEDS: NS 0.9% 1000 ml BAG 1,000 ML IV SCH ×2 (08:12→21:01)
[2020-08-25] MEDS: Polyethylene Glycol 3350 17 GM PACKET PO SCH (09:18)
[2020-08-25 11:56] LABS: Calcium 8.4 mg/dL (8.6-10.3); EGFR African American 106.9 (>60); EGFR Non-African American 88.3 (>60); Potassium 3.6 mmol/L (3.5-5.0)
[2020-08-25] MEDS ORDERED: fentaNYL 100 mcg/2 ml 50 MCG/ML VIAL ONE (15:51)
[2020-08-25] MEDS ORDERED: Midazolam 10 mg/10 ml VIAL 1 mg/ml 10 ml VIAL (10 mg) ONE (15:51)
[2020-08-26 05:53] LABS: ABS Eosinophils 0.1 10^3/ul (0-0.6); ABS Lymphocytes 1.2 10^3/ul (1.0-4.8); ABS Monocytes 0.6 10^3/ul (0-0.8); ABS Neutrophils 2.7 10^3/ul (1.5-7.7); Eosinophil % 2.7 %; Hematocrit 37 % (42-52); Hemoglobin 12.7 g/dL (14.0-18.0); Mean Corpuscular HGB Conc 35 g/dL (31-36); Mean Corpuscular Hemoglobin 33 pg (27-31); Mean Corpuscular Volume 94 fL (80-94); Mean Platelet Volume 6.6 fL (7.4-10.4); Platelet Count 165 10^3/uL (150-450); Red Blood Count 3.91 10^6 /uL (4.18-5.48); Red Cell Distribution Width 14 % (10-15); White Blood Count 4.6 10^3/uL (3.5-10.8)
[2020-08-26 06:10] LABS: EGFR African American 124.9 (>60); EGFR Non-African American 103.3 (>60); Magnesium 1.9 mg/dL (1.9-2.7); Potassium 3.6 mmol/L (3.5-5.0)
[2020-08-26] MEDS: Heparin 5000 UNITS/ML 1 mL VIAL SUBCUT SCH ×2 (06:22→13:10)
[2020-08-26] MEDS: Carbidopa/Levodop 25/100 MG TAB PO SCH ×5 (06:22→22:55)
[2020-08-26] MEDS: Polyethylene Glycol 3350 17 GM PACKET PO SCH (08:06)
[2020-08-26] MEDS ORDERED: Enoxaparin 40 MG/0.4 ML SYR SUBCUT SCH (15:00)
[2020-08-26] MEDS ORDERED: Midazolam 10 mg/10 ml VIAL 1 mg/ml 10 ml VIAL (10 mg) ONE (15:20)
[2020-08-26] MEDS ORDERED: fentaNYL 100 mcg/2 ml 50 MCG/ML VIAL ONE (15:20)
[2020-08-26] MEDS ORDERED: Piperacillin/Tazobac ADVAN 3.375 GM in NS 0.9% 100 ml BAG 100 ML IV ONE (17:00)
[2020-08-26] MEDS ORDERED: Zosyn per Pharmacy NOTE FOLLOW UP SCH (17:00)
[2020-08-26 18:01] LABS: C Reactive Protein 66.16 mg/L (<8.01)
[2020-08-26 18:02] LABS: C Reactive Protein 134.4 mg/L (<8.01)
[2020-08-26] MEDS: ZOSYN 3.375 GM Q8H per EXTENDED INFUSION IV SCH (22:56)
[2020-08-27 06:27] LABS: ABS Eosinophils 0.2 10^3/ul (0-0.6); ABS Lymphocytes 1.2 10^3/ul (1.0-4.8); ABS Monocytes 0.5 10^3/ul (0-0.8); ABS Neutrophils 2.4 10^3/ul (1.5-7.7); Eosinophil % 4.8 %; Hematocrit 35 % (42-52); Hemoglobin 12.5 g/dL (14.0-18.0); Lymphocyte % 28.3 %; Mean Corpuscular HGB Conc 36 g/dL (31-36); Mean Corpuscular Hemoglobin 33 pg (27-31); Mean Corpuscular Volume 94 fL (80-94); Mean Platelet Volume 6.6 fL (7.4-10.4); Nucleated Red Blood Cells % 0.1; Platelet Count 179 10^3/uL (150-450); Red Blood Count 3.74 10^6 /uL (4.18-5.48); Red Cell Distribution Width 14 % (10-15); White Blood Count 4.3 10^3/uL (3.5-10.8)
[2020-08-27] MEDS: ZOSYN 3.375 GM Q8H per EXTENDED INFUSION IV SCH ×3 (06:29→22:15)
[2020-08-27] MEDS: Carbidopa/Levodop 25/100 MG TAB PO SCH ×5 (06:31→22:11)
[2020-08-27 06:35] LABS: Calcium 8.4 mg/dL (8.6-10.3); EGFR African American 116.1 (>60); EGFR Non-African American 95.9 (>60); Magnesium 1.9 mg/dL (1.9-2.7); Potassium 3.5 mmol/L (3.5-5.0)
[2020-08-27] MEDS: Polyethylene Glycol 3350 17 GM PACKET PO SCH ×2 (08:14→22:10)
[2020-08-28] MEDS: Carbidopa/Levodop 25/100 MG TAB PO SCH ×5 (05:57→21:53)
[2020-08-28] MEDS: ZOSYN 3.375 GM Q8H per EXTENDED INFUSION IV SCH ×3 (06:00→21:53)
[2020-08-28] MEDS: Polyethylene Glycol 3350 17 GM PACKET PO SCH ×2 (07:49→19:50)
[2020-08-29] MEDS: ZOSYN 3.375 GM Q8H per EXTENDED INFUSION IV SCH ×3 (05:33→21:10)
[2020-08-29] MEDS: Carbidopa/Levodop 25/100 MG TAB PO SCH ×5 (05:33→21:05)
[2020-08-29] MEDS: Polyethylene Glycol 3350 17 GM PACKET PO SCH ×2 (08:41→21:04)
[2020-08-30] MEDS: ZOSYN 3.375 GM Q8H per EXTENDED INFUSION IV SCH ×3 (06:15→22:31)
[2020-08-30] MEDS: Carbidopa/Levodop 25/100 MG TAB PO SCH ×5 (06:21→22:29)
[2020-08-30] MEDS: Polyethylene Glycol 3350 17 GM PACKET PO SCH ×2 (07:23→20:24)
[2020-08-30 09:31] LABS: Hematocrit 37 % (42-52); Hemoglobin 12.6 g/dL (14.0-18.0); Mean Corpuscular HGB Conc 34 g/dL (31-36); Mean Corpuscular Hemoglobin 33 pg (27-31); Mean Corpuscular Volume 95 fL (80-94); Mean Platelet Volume 6.6 fL (7.4-10.4); Platelet Count 248 10^3/uL (150-450); Red Blood Count 3.88 10^6 /uL (4.18-5.48); Red Cell Distribution Width 14 % (10-15); White Blood Count 4.3 10^3/uL (3.5-10.8)
[2020-08-30 09:45] LABS: C Reactive Protein 60.72 mg/L (<8.01); Calcium 8.4 mg/dL (8.6-10.3); EGFR African American 85.1 (>60); EGFR Non-African American 70.3 (>60); Potassium 3.9 mmol/L (3.5-5.0)
[2020-08-31] MEDS: Carbidopa/Levodop 25/100 MG TAB PO SCH ×4 (06:07→16:35)
[2020-08-31] MEDS: ZOSYN 3.375 GM Q8H per EXTENDED INFUSION IV SCH ×2 (06:07→16:06)
[2020-08-31] MEDS ORDERED: Enoxaparin 40 MG/0.4 ML SYR SUBCUT SCH (10:00)
[2020-08-31] MEDS: Polyethylene Glycol 3350 17 GM PACKET PO SCH (10:35)
[2020-08-31 11:14] LABS: ABS Eosinophils 0.1 10^3/ul (0-0.6); ABS Monocytes 0.5 10^3/ul (0-0.8); ABS Neutrophils 2.8 10^3/ul (1.5-7.7); Eosinophil % 2.7 %; Hematocrit 35 % (42-52); Hemoglobin 11.7 g/dL (14.0-18.0); Lymphocyte % 22.2 %; Mean Corpuscular HGB Conc 34 g/dL (31-36); Mean Corpuscular Hemoglobin 32 pg (27-31); Mean Corpuscular Volume 95 fL (80-94); Mean Platelet Volume 6.2 fL (7.4-10.4); Nucleated Red Blood Cells % 0.1; Platelet Count 273 10^3/uL (150-450); Red Blood Count 3.65 10^6 /uL (4.18-5.48); Red Cell Distribution Width 14 % (10-15); White Blood Count 4.6 10^3/uL (3.5-10.8)
[2020-08-31 11:27] VITALS: BP 161/83
[2020-08-31 11:43] LABS: Calcium 8.3 mg/dL (8.6-10.3); EGFR African American 97.8 (>60); EGFR Non-African American 80.8 (>60); Magnesium 1.9 mg/dL (1.9-2.7); Phosphorus 2.5 mg/dL (2.5-5.0); Potassium 3.6 mmol/L (3.5-5.0)
== END 2020-08-31 17:30 | disposition home or self-care (01) | DRG 394 ==
LOC: ED 13:44 → SSU 20:17
PROVIDERS: ADMIT Internal Medicine; ATTEND Internal Medicine